=== PATIENT | female | born 1960 | race Caucasian/White ===

== ENCOUNTER 2020-11-07 07:48 | Outpatient (REF) | payer OTHER, SELFPAY ==
[2020-11-07 10:42] LABS: MANUAL DIFF FLAG NO
[2020-11-07 10:45] LABS: Basophils Absolute Auto 0.1 X10*3/uL (0.0-0.2); Basophils Percent Auto 0.6 % (0-2); Eosinophils Absolute Auto 0.3 X10*3/uL (0.0-0.4); Eosinophils Percent Auto 2.7 % (0-4); Hematocrit 38.6 % (37-47); Hemoglobin 12.6 g/dl (12.0-16.0); Imm Gran Abs Auto 0.07 X10*3/uL (0.00-0.03); Imm Gran Pct Auto 0.7 % (0.0-0.4); Lymphocytes Absolute Auto 3.3 X10*3/uL (1.2-4.9); Lymphocytes Percent Auto 31.7 % (20-40); Mean Corpuscular HGB Conc 32.6 g/dl (31.0-35.0); Mean Corpuscular Hemoglobin 29.7 pg (27.0-33.0); Mean Platelet Volume 10.8 fL (9.4-12.3); Monocytes Absolute Auto 0.8 X10*3/uL (0.1-1.2); Monocytes Percent Auto 7.8 % (2-11); Neutrophils Absolute Auto 5.8 X10*3/uL (2.0-8.3); Neutrophils Percent Auto 56.5 % (45-73); Platelet Count 321 X10*3/uL (160-400); Red Blood Count 4.24 X10*6/uL (4.20-5.50); Red Cell Distribution Width 13.7 % (11.0-16.0); White Blood Count 10.3 X10*3/uL (4.8-10.8)
[2020-11-07 12:07] LABS: Alanine Aminotransferase 48 U/L (0-31); Albumin Level 3.8 g/dL (3.5-5.0); Alkaline Phosphatase 107 U/L (39-117); Anion Gap 18 (12-20); Aspartate Amino Transferase 20 U/L (5-31); Bilirubin Total 0.6 mg/dL (0.0-1.0); Blood Urea Nitrogen 23 mg/dL (9-16); Calcium 8.7 mg/dL (8.4-10.2); Carbon Dioxide 24 mmol/L (22-29); Chloride 104 mmol/L (96-108); Cholesterol 245 mg/dL; Estimated Glomerular Filt Rate > 60; Glucose Fasting 101 mg/dL (60-99); HDL Cholesterol 58 mg/dL; LDL Cholesterol Calculated 149 mg/dl; Potassium 5.3 mmol/L (3.3-5.1); Sodium 141 mmol/L (135-145); Total Protein 6.5 g/dL (6.5-8.0); Triglycerides 192 mg/dL
== END 2020-11-07 07:49 | disposition home or self-care (01) ==
LOC: HO.WFDLDS 07:48
PROVIDERS: Visit Provider Internal Medicine
DX: Z00.00 Encounter for general adult medical examination without abnormal findings (principal); E11.9 Type 2 diabetes mellitus without complications; E03.9 Hypothyroidism, unspecified
CPT/HCPCS: 36415; 80053; 80061; 84443; 85025

== ENCOUNTER 2021-09-13 11:09 | Outpatient (REF) | payer OTHER, SELFPAY | END 2021-09-13 11:10 | disposition home or self-care (01) | LOC: HO.LNP 11:09 | PROVIDERS: Visit Provider Internal Medicine | DX: N39.0 Urinary tract infection, site not specified (principal) | CPT/HCPCS: 87086 ==

== ENCOUNTER 2022-06-27 11:22 | Outpatient (REF) | payer OTHER, SELFPAY ==
--- NOTE | ~2022-06-27 | US_ITS ---
EXAMINATION: US THYROID CLINICAL INFORMATION: Nontoxic goiter, unspecified. COMPARISON: Thyroid ultrasound 09/02/2019. TECHNIQUE: Linear transducer grayscale and color Doppler examination with attention to the region of the thyroid. FINDINGS: SIZE: Measurements of the thyroid lobes and nodules are given in sagittal, anteroposterior and transverse dimensions respectively. Right Thyroid Lobe: 4.3 x 1.6 x 1.3 cm, volume 4.9 mL. Previously 4.5 x 1.5 x 1.1 cm, volume 3.9 mL. Parenchyma: The gland echotexture is homogeneous. Thyroid vascularity is normal. Left Thyroid Lobe: 4.1 x 1.6 x 1.3 cm, volume 4.6 mL. Previously 4.1 x 1.8 x 1.3 cm, volume 5.0 mL. Parenchyma: The gland echotexture is homogeneous. Thyroid vascularity is normal. Isthmus: 0.1 cm in maximum AP dimension. Previously 0.1 cm. Estimated total number of nodules greater than or equal to 1 cm: 1. 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 Location: Right lower pole. Size: 0.4 x 0.3 x 0.3 cm, volume 0.02 mL. Previously: Not documented. Nodule characteristics: Composition: Cystic(0). ACR TI-RADS total points: 0 ACR TI-RADS category: 1 2. Location: Right lower pole. Size: 0.5 x 0.3 x 0.4 cm, volume 0.03 mL. Previously: 0.4 x 0.3 x 0.4 cm, volume 0.03 mL. Nodule characteristics: Composition: Cystic(0). ACR TI-RADS total points: 0 ACR TI-RADS category: 1 Significant change in size (>/= 20% in 2 dimensions and minimal increase of 2 mm or 50% or greater increase in volume): Change in features: Change in ACR TI-RADS risk category: 3. Location: Left mid pole. Size: 1.3 x 1.0 x 1.2 cm, volume 0.80 mL. Previously: 1.4 x 0.8 x 1.0 cm, volume 0.59 mL. Nodule characteristics: Composition: Solid/almost completely solid (2). Echogenicity: Very hypoechoic (3). Shape: Not taller than wide (0). Margins: Smooth (0). Echogenic Foci: Punctate echogenic foci (3). ACR TI-RADS total points: 8 ACR TI-RADS category: 5 Significant change in size (>/= 20% in 2 dimensions and minimal increase of 2 mm or 50% or greater increase in volume): Change in features: Change in ACR TI-RADS risk category: NODES: No lymphadenopathy is seen in the tissue surrounding the thyroid gland. US/US thyroid IMPRESSION: Slight interval increase in size in the dominant nodule in the mid left lobe. Fine needle aspiration recommended. ACR TI-RADS RECOMMENDATION REFERENCE: Ultrasound-guided fine-needle aspiration, followup ultrasound, no further follow up. * TR1 (0 point) and TR 2 (2 points): No FNA or follow up * TR3 (3 points): FNA if more than or equal to 2.5 cm in maximum dimension, followup ultrasound in 1, 3 and 5 years if 1.5 to 2.4 cm in maximum dimension. * TR4 (4-6 points): FNA if more than or equal to 1.5 cm in maximum dimension, followup ultrasound in 1, 2, 3 and 5 years if 1 to 1.4 cm in maximum dimension. * TR5 (more than or equal to 7 points): FNA if more than or equal to 1 cm in maximum dimension, followup ultrasound every year for 5 years if 0.5 to 0.9 cm in maximum dimension. * TR3, TR4 or TR5 nodules that are below the size threshold for follow up receive no follow up.
== END 2022-06-27 11:23 | disposition home or self-care (01) ==
LOC: HO.HMGCX 11:22
PROVIDERS: PCP Internal Medicine; Visit Provider Internal Medicine
DX: E04.9 Nontoxic goiter, unspecified (principal)
CPT/HCPCS: 76536

== ENCOUNTER 2022-07-01 08:17 | Outpatient (REF) | payer OTHER, SELFPAY ==
[2022-07-01 11:28] LABS: MANUAL DIFF FLAG NO
[2022-07-01 11:55] LABS: Basophils Percent Auto 0.1 % (0-2); Hematocrit 39.1 % (37.0-47.0); Hemoglobin 12.6 g/dl (12.0-16.0); Imm Gran Abs Auto 0.05 X10*3/uL (0.00-0.03); Imm Gran Pct Auto 0.6 % (0.0-0.4); Lymphocytes Absolute Auto 2.7 X10*3/uL (1.2-4.9); Lymphocytes Percent Auto 31.1 % (20-40); Mean Corpuscular HGB Conc 32.2 g/dl (31.0-35.0); Mean Corpuscular Hemoglobin 28.7 pg (27.0-33.0); Mean Corpuscular Volume 89.1 fL (80.0-98.0); Mean Platelet Volume 11.2 fL (9.4-12.3); Monocytes Absolute Auto 0.6 X10*3/uL (0.1-1.2); Monocytes Percent Auto 6.9 % (2-11); Neutrophils Absolute Auto 5.3 x10*3/uL (2.0-8.3); Neutrophils Percent Auto 61.3 % (45-73); Platelet Count 274 X10*3/uL (160-400); Red Blood Count 4.39 X10*6/uL (4.20-5.50); Red Cell Distribution Width 13.7 % (11.0-16.0); White Blood Count 8.7 X10*3/uL (4.8-10.8)
[2022-07-01 12:25] LABS: Alanine Aminotransferase 39 U/L (0-31); Albumin Level 3.8 g/dL (3.5-5.0); Alkaline Phosphatase 84 U/L (39-117); Anion Gap 14 (12-20); Aspartate Amino Transferase 18 U/L (5-31); Bilirubin Total 0.7 mg/dL (0.0-1.0); Blood Urea Nitrogen 20 mg/dL (9-16); Calcium 8.7 mg/dL (8.4-10.2); Carbon Dioxide 25 mmol/L (22-29); Chloride 104 mmol/L (96-108); Cholesterol 262 mg/dL; Estimated Glomerular Filt Rate > 60; Glucose Fasting 110 mg/dL (60-99); HDL Cholesterol 67 mg/dL; LDL Cholesterol Calculated 167 mg/dl; Potassium 4.2 mmol/L (3.3-5.1); Sodium 139 mmol/L (135-145); Thyroid Stimulating Hormone 0.73 uIU/mL (0.32-4.0); Total Protein 6.4 g/dL (6.5-8.0); Triglycerides 141 mg/dL
== END 2022-07-01 08:18 | disposition home or self-care (01) ==
LOC: HO.WFDLDS 08:17
PROVIDERS: Visit Provider Internal Medicine
DX: Z00.00 Encounter for general adult medical examination without abnormal findings (principal); Z13.0 Encounter for screening for diseases of the blood and blood-forming organs and certain disorders involving the immune mechanism
CPT/HCPCS: 36415; 80053; 80061; 84443; 85025

== ENCOUNTER 2022-09-19 08:42 | Outpatient (REF) | payer OTHER, SELFPAY ==
--- NOTE | 2022-09-19 09:19 | P.BOP_ITS ---
Brief Operative Note Date of Service: 09/19/22 Pre-op diagnosis: Thyroid Nodule Procedure: This is doctor Ashleigh Weston. This is an ultrasound-guided fine-needle aspiration report. Date of Examination: Indication: Multinodular Thyroid Porcedure: Procedure was explained to the patient. Alternatives, the risk and benefits were discussed. Written consent was obtained. A time-out was also obtained. After sterile preparation, fine-needle aspiration of a left mid pole 1.3 cm thyroid nodule was performed using direct ultrasound guidance to confirm accurate needle placement. Four aspirations were made using 27 gauge needles. Samples were submitted for cytology. 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 The patient tolerated the procedure well. Aftercare instructions were provided. Impression: Uncomplicated fine needle aspiration biopsy of a left mid pole 1.3 cm thyroid nodule under ultrasound guidance. Surgeon: Ashleigh Weston, DO Was an Mine Production Engineer used for this Procedure?: No Estimated blood loss (mL): 0
== END 2022-09-19 08:43 | disposition home or self-care (01) ==
LOC: HO.US 08:42
PROVIDERS: Visit Provider Internal Medicine
DX: E04.1 Nontoxic single thyroid nodule (principal)
CPT/HCPCS: 10005; 88172; 88173; 88177; 88305

== ENCOUNTER 2022-12-17 11:50 | Outpatient (REF) | payer OTHER, SELFPAY ==
--- NOTE | ~2022-12-17 | XR_ITS ---
EXAMINATION: XR LUMBOSACRAL SPINE CLINICAL INFORMATION: Reason for Exam M54.9 - Dorsalgia, unspecified COMPARISON: Lumbar spine radiographs 03/06/2015 TECHNIQUE: 3 views of the lumbar spine FINDINGS: 5 nonrib-bearing lumbar-type vertebral bodies. Vertebral body heights are maintained. Dextroconvex curvature of the lumbar spine. Grade 1 retrolisthesis of L2 on L3 and L3 on L4. Moderate multilevel degenerative disc disease with loss of disc space height and facet arthropathy, progressed from prior. Paravertebral soft tissues are unremarkable. XR/XR lumbar spine 2-3V IMPRESSION: * Moderate spondylosis of the lumbar spine, as above detailed, progressed from prior. * Spondylolisthesis, as above detailed, with dextroconvex curvature of the lumbar spine.
[2022-12-17 12:07] LABS: MANUAL DIFF FLAG NO
[2022-12-17 13:22] LABS: Basophils Percent Auto 0.2 % (0-2); Hematocrit 38.4 % (37.0-47.0); Hemoglobin 12.6 g/dl (12.0-16.0); Imm Gran Abs Auto 0.02 X10*3/uL (0.00-0.03); Imm Gran Pct Auto 0.2 % (0.0-0.4); Lymphocytes Absolute Auto 2.1 X10*3/uL (1.2-4.9); Lymphocytes Percent Auto 23.4 % (20-40); Mean Corpuscular HGB Conc 32.8 g/dl (31.0-35.0); Mean Corpuscular Hemoglobin 28.9 pg (27.0-33.0); Mean Corpuscular Volume 88.1 fL (80.0-98.0); Mean Platelet Volume 11.1 fL (9.4-12.3); Monocytes Absolute Auto 0.5 X10*3/uL (0.1-1.2); Monocytes Percent Auto 5.9 % (2-11); Neutrophils Absolute Auto 6.2 x10*3/uL (2.0-8.3); Neutrophils Percent Auto 70.3 % (45-73); Platelet Count 305 X10*3/uL (160-400); Red Blood Count 4.36 X10*6/uL (4.20-5.50); Red Cell Distribution Width 13.2 % (11.0-16.0); White Blood Count 8.8 X10*3/uL (4.8-10.8)
[2022-12-17 14:27] LABS: Anion Gap 14 (12-20); Blood Urea Nitrogen 19 mg/dL (9-16); Calcium 9.2 mg/dL (8.4-10.2); Carbon Dioxide 26 mmol/L (22-29); Chloride 105 mmol/L (96-108); Cholesterol 213 mg/dL; Estimated Glomerular Filt Rate > 60; Glucose Random 101 mg/dL (60-115); HDL Cholesterol 56 mg/dL; LDL Cholesterol Calculated 125 mg/dl; Potassium 4.7 mmol/L (3.3-5.1); Sodium 140 mmol/L (135-145); Triglycerides 160 mg/dL
== END 2022-12-17 11:51 | disposition home or self-care (01) ==
LOC: HO.LAB 11:50
PROVIDERS: PCP Internal Medicine; Visit Provider Internal Medicine
DX: D64.9 Anemia, unspecified (principal); N39.0 Urinary tract infection, site not specified; M54.9 Dorsalgia, unspecified; E78.5 Hyperlipidemia, unspecified
CPT/HCPCS: 36415; 72100; 80048; 80061; 85025; 87086

== ENCOUNTER 2022-12-30 13:02 | Outpatient (REF) | payer OTHER, SELFPAY ==
[2022-12-30 15:08] LABS: Appearance Urine Hazy; Color Urine Orange; Glucose Urine UA 100 mg/dL (Negative); Leukocyte Esterase Urine Trace (Negative); Nitrite Urine Positive (Negative); PH 5.5 (5.0-9.0); Specific Gravity - Urine 1.025 (1.005-1.025); UMIC TRIGGER UACC YES; Urine Blood Negative (Negative); Urine Ketones Trace mg/dL (Negative); Urine Protein 100 (2+) mg/dL (Neg-Trace)
[2022-12-30 15:25] LABS: Bacteria Urine Trace (None Seen); UACC Culture Trigger YES; WBC Urine 21-50 /HPF (0-5)
== END 2022-12-30 13:03 | disposition home or self-care (01) ==
LOC: HO.LAB 13:02
PROVIDERS: PCP Internal Medicine; Visit Provider Internal Medicine
DX: R39.9 Unspecified symptoms and signs involving the genitourinary system (principal)
CPT/HCPCS: 81001; 81003; 87086; 87088; 87186

== ENCOUNTER → 2023-02-03 13:51 | Outpatient (BNVA) | payer OTHER, SELFPAY | PROVIDERS: PCP Internal Medicine; Visit Provider Internal Medicine ==

== ENCOUNTER 2023-06-10 13:23 | Outpatient (AMB) | payer OTHER, SELFPAY ==
[2023-06-10 13:25] VITALS: BP 132/88; PULSE 90; O2SAT 98; BMI 32.9
--- NOTE | 2023-06-10 13:25 | A.OFFPC_ITS ---
Vital Signs 06/10/23 13:25 Height 5 ft 2 in Weight 180 lb BMI 32.9 BP 132/88 Blood Pressure Location Lt brachial Position Sitting Pulse 90 Pulse Source Pulse Oximeter Pulse Oximetry (%) 98 Oxygen Delivery Method Room Air Intake Visit Reasons: Vertigo Recruitment Coordinator: Not Required per policy Accompanied by: Self / Same As Patient Allergies albuterol [ALBUTEROL] Allergy (Unknown, Verified 06/10/23 13:25) ANAPHYLAXIS azithromycin [AZITHROMYCIN] Allergy (Unknown, Verified 06/10/23 13:25) ANGIOEDEMA, tingling tongue/throat bee venom protein (honey bee) Allergy (Unknown, Verified 06/10/23 13:25) Anaphylaxis guaifenesin [GUAIFENESIN] Allergy (Unknown, Verified 06/10/23 13:25) ANAPHYLACTIC, anaphylaxis iodine [IODINE] Allergy (Unknown, Verified 06/10/23 13:25) ANAPHYLAXIS, Slight throat swelling levofloxacin [Levaquin] Allergy (Unknown, Verified 06/10/23 13:25) rash tingling peanut [PEANUT] Allergy (Unknown, Verified 06/10/23 13:25) HIVES shellfish derived Allergy (Unknown, Verified 06/10/23 13:25) slight throat swelling Sulfa (Sulfonamide Antibiotics) [SULFA (SULFONAMIDE ANTIBIOTICS)] Allergy (Unknown, Verified 06/10/23 13:25) RASH atorvastatin Adverse Reaction (Intermediate, Verified 06/10/23 13:25) Sneezing Monistat Cream Allergy (Unknown, Uncoded 06/10/23 13:25) Rash Medication List - Last Reconciled 06/11/23 by Lion Teran MD dupilumab (Dupixent) mg subcut estradiol 1 mg PO DAILY fluticasone furoate-vilanterol 100-25 mcg/dose inhalation ipratropium bromide 17 mcg/actuation (Atrovent HFA) 0 mcg inhalation meclizine 25 mg PO QID PRN medroxyprogesterone 2.5 mg PO DAILY nitrofurantoin macrocrystal 100 mg PO Q12H 7 days rosuvastatin 5 mg PO DAILY tiotropium bromide 1.25 mcg/actuation 2 puffs PO DAILY zolpidem 5 mg PO BEDTIME PRN Tobacco use date assessed: 12/17/22 Dental Screening Dental Screen Date: 06/10/23 Did you have a dental visit in the last 12 months?: Yes Did you have a dental problem in the last 6 months where you did not have access to dental care?: No Was dental information given to patient?: Patient has dentist HPI Vertigo HPI Details recurrent vertigo now for a week [facility] Medical History Multinodular thyroid Asthma Surgical History History of surgery on right wrist History of ankle surgery History of ear surgery Family History Father Myocardial infarction Diabetes Mother High cholesterol Diabetes Hypertension Breast cancer DDD (degenerative disc disease) Maternal Grandfather Mary's disease Thyroid disease Sister Overactive thyroid gland Maternal Aunt Thyroid disease Social History Housing: House Alcohol intake: current Alcohol intake frequency: holidays/special occasions only Patient Tobacco Use Status: Never used Tobacco e-Cigarette/Vaping Use: Never Used Second Hand Smoke Exposure: No service: No Current occupational status: unemployed Cognitive needs: No Hearing needs: No Vision needs: No Questionnaire PHQ-9 Over the last 2 weeks, how often have you been bothered by any of the following problems? 1. Little interest or pleasure in doing things: not at all 2. Feeling down, depressed, or hopeless: not at all 3. Trouble falling or staying asleep, or sleeping too much: not at all 4. Feeling tired or having little energy: not at all 5. Poor appetite or overeating: not at all 6. Feeling bad about yourself - or that you are a failure or have let yourself or your family down: not at all 7. Trouble concentrating on things, such as reading the newspaper or watching television: not at all 8. Moving or speaking so slowly that other people could have noticed. Or the opposite - being so fidgety or restless that you have been moving around a lot more than usual: not at all 9. Thoughts that you would be better off or of hurting yourself in some way: not at all Total score: 0 Depression Screening Interpretation: Negative Depression Screening Done: Yes 46998 - PHQ-9 Billing: Yes Source: Developed by Drs. Diego Brown, Shaniqua Leonard, Alfonso Downey and colleagues, with an educational dagmar from [employer] Thrive Questionnaire Date Thrive assessed: 09/09/22 AUDIT C Alcohol Use Questionnaire (AUDIT-C) 1. How often do you have a drink containing alcohol?: 2-4 times a month 2. How many drinks containing alcohol do you have on a typical day when you are drinking?: 1 or 2 3. How often do you have six or more drinks on one occasion?: Never Total Score: 2 Score Reviewed/Action Taken: Yes CLARISSA-7 AMB Questionnaire CLARISSA-7 Date CLARISSA - 7 assessed: 09/09/22 Source: Developed by Drs. Diego Brown, Shaniqua Leonard, Alfonso Downey and colleagues, with an educational dagmar from [employer]. Review of Systems Const Denies chills, Denies headache(s) and Denies weight loss ENT Denies headache(s) Card Denies chest pain, Denies syncope, Denies irregular heart rhythm and Denies dyspnea Resp Denies chest congestion, Denies cough and Denies dyspnea GI Denies abdominal pain, Denies change in stool character, Denies nausea and Denies vomiting Musc Denies deformity and Denies joint swelling Neuro Denies syncope and Denies headache(s) Physical exam (Primary Care) Vital Signs: Last Vital Signs Pulse 90 06/10/23 13:25 BP 132/88 06/10/23 13:25 Pulse Ox 98 06/10/23 13:25 Oxygen Delivery Method Room Air 06/10/23 13:25 BMI result Body Mass Index 32.9 Tobacco/Smoking Status: Tobacco use Status Tobacco use date assessed 12/17/22 06/10/23 13:26 Patient Tobacco Use Status Never used Tobacco 06/10/23 13:26 e-Cigarette/Vaping Use Never Used 06/10/23 13:26 PHQ-9: PHQ-9 Score PHQ-9: Total score 0 06/10/23 13:26 Depression Screening Interpretation: Negative Thrive Assessment: Date of Thrive Assessment Date Thrive assessed 09/09/22 06/10/23 13:26 Const General: cooperative, comfortable, no acute distress and alert Neck Neck: Yes no lymphadenopathy Thyroid: Thyroid normal Resp Effort & Inspection: normal respiratory effort Auscultation: clear to auscultation bilaterally Percussion: percussion normal Cardio Jugular venous distension: no JVD Palpation: normal PMI Rate: regular rate Rhythm: regular rhythm Heart sounds: S1 normal heart sound present and S2 normal heart sound present GI Inspection: Yes normal to inspection Palpation (GI): No hepatosplenomegaly present Skin General skin exam: no rashes or lesions noted Neuro Other: no nystagmus Extrem General: Yes no clubbing, cyanosis or edema Assessment and Plan Assessment & Plan (1) Vertigo: Code(s): R42 - Dizziness and giddiness Plan: rx sent Medications: New meclizine 25 mg PO QID PRN 30 tabs 2RF dizziness Coding Level of Care Code Est Pt Level 3 (41447) Diagnoses Vertigo R42
== END 2023-06-10 13:44 | disposition home or self-care (01) ==
PROVIDERS: PCP Internal Medicine; Visit Provider Internal Medicine
DX: R42 Dizziness and giddiness (principal)
CPT/HCPCS: 99213

== ENCOUNTER 2023-07-16 08:45 | Outpatient (AMB) | payer OTHER, SELFPAY ==
[2023-07-16 08:47] VITALS: BP 136/88; PULSE 85; O2SAT 97; BMI 33.3
--- NOTE | 2023-07-16 08:47 | MHC.PC.OV ---
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 Accompanied by: Self / Same As Patient Allergies albuterol [ALBUTEROL] Allergy (Unknown, Verified 07/16/23 08:48) ANAPHYLAXIS azithromycin [AZITHROMYCIN] Allergy (Unknown, Verified 07/16/23 08:48) ANGIOEDEMA, tingling tongue/throat bee venom protein (honey bee) Allergy (Unknown, Verified 07/16/23 08:48) Anaphylaxis guaifenesin [GUAIFENESIN] Allergy (Unknown, Verified 07/16/23 08:48) ANAPHYLACTIC, anaphylaxis iodine [IODINE] Allergy (Unknown, Verified 07/16/23 08:48) ANAPHYLAXIS, Slight throat swelling levofloxacin [Levaquin] Allergy (Unknown, Verified 07/16/23 08:48) rash tingling peanut [PEANUT] Allergy (Unknown, Verified 07/16/23 08:48) HIVES shellfish derived Allergy (Unknown, Verified 07/16/23 08:48) slight throat swelling Sulfa (Sulfonamide Antibiotics) [SULFA (SULFONAMIDE ANTIBIOTICS)] Allergy (Unknown, Verified 07/16/23 08:48) RASH atorvastatin Adverse Reaction (Intermediate, Verified 07/16/23 08:48) Sneezing Monistat Cream Allergy (Unknown, Uncoded 07/16/23 08:48) Rash Tobacco use date assessed: 12/17/22 HPI Headache, Nausea, Dizziness HPI Details continues with h/a blurred vision and vertigo PFSH Medical History Multinodular thyroid Asthma Surgical History History of surgery on right wrist History of ankle surgery History of ear surgery Family History Father Myocardial infarction Diabetes Mother High cholesterol Diabetes Hypertension Breast cancer DDD (degenerative disc disease) Maternal Grandfather Mary's disease Thyroid disease Sister Overactive thyroid gland Maternal Aunt Thyroid disease Social History Housing: House Alcohol intake: current Alcohol intake frequency: holidays/special occasions only Patient Tobacco Use Status: Never used Tobacco e-Cigarette/Vaping Use: Never Used Second Hand Smoke Exposure: No service: No Current occupational status: unemployed Cognitive needs: No Hearing needs: No Vision needs: No Questionnaire Thrive Questionnaire Date Thrive assessed: 09/09/22 CLARISSA-7 AMB Questionnaire CLARISSA-7 Date CLARISSA - 7 assessed: 09/09/22 Source: Developed by Drs. Diego Brown, Shaniqua Leonard, Alfonso Downey and colleagues, with an educational dagmar from [employer]. Review of Systems Const Denies chills, Denies headache(s) and Denies weight loss ENT Denies headache(s) Card Denies chest pain, Denies syncope, Denies irregular heart rhythm and Denies dyspnea Resp Denies chest congestion, Denies cough and Denies dyspnea GI Denies abdominal pain, Denies change in stool character, Denies nausea and Denies vomiting Musc Denies deformity and Denies joint swelling Neuro Denies syncope and Denies headache(s) Physical exam (Primary Care) Vital Signs: Last Vital Signs Pulse 85 07/16/23 08:47 BP 136/88 07/16/23 08:47 Pulse Ox 97 07/16/23 08:47 Oxygen Delivery Method Room Air 07/16/23 08:47 BMI result Body Mass Index 33.3 Tobacco/Smoking Status: Tobacco use Status Tobacco use date assessed 12/17/22 07/16/23 08:48 Patient Tobacco Use Status Never used Tobacco 07/16/23 08:48 e-Cigarette/Vaping Use Never Used 07/16/23 08:48 Thrive Assessment: Date of Thrive Assessment Date Thrive assessed 09/09/22 07/16/23 08:48 Const General: cooperative, comfortable, no acute distress and alert Neck Neck: Yes no lymphadenopathy Thyroid: Thyroid normal Resp Effort & Inspection: normal respiratory effort Auscultation: clear to auscultation bilaterally Percussion: percussion normal Cardio Jugular venous distension: no JVD Palpation: normal PMI Rate: regular rate Rhythm: regular rhythm Heart sounds: S1 normal heart sound present and S2 normal heart sound present GI Inspection: Yes normal to inspection Palpation (GI): No hepatosplenomegaly present Skin General skin exam: no rashes or lesions noted Extrem General: Yes no clubbing, cyanosis or edema Assessment and Plan Assessment & Plan (1) Vertigo: Code(s): R42 - Dizziness and giddiness Plan: ct and referral Orders: Orders CT head/brain wo IV con Today R42 - Dizziness and giddiness Coding Level of Care Code Est Pt Level 3 (17314) Diagnoses Vertigo R42
== END 2023-07-16 08:59 | disposition home or self-care (01) ==
PROVIDERS: PCP Internal Medicine; Visit Provider Internal Medicine
DX: R42 Dizziness and giddiness (principal)
CPT/HCPCS: 99213

== ENCOUNTER 2023-08-06 07:36 | Outpatient (REF) | payer OTHER, SELFPAY | END 2023-08-06 07:37 | disposition home or self-care (01) | LOC: HO.CT 07:36 | PROVIDERS: PCP Internal Medicine; Visit Provider Internal Medicine | DX: R42 Dizziness and giddiness (principal) | CPT/HCPCS: 70450 ==

== ENCOUNTER 2023-09-12 09:56 | Outpatient (AMB) | payer OTHER, SELFPAY ==
[2023-09-12 09:56] VITALS: BP 132/90; RESP 86; O2SAT 99; BMI 32.4
--- NOTE | 2023-09-12 09:56 | MHC.PC.OV ---
Vital Signs 09/12/23 09:56 Height 5 ft 2 in Weight 177 lb 0.2 oz BMI 32.4 BP 132/90 H Blood Pressure Location Lt brachial Position Sitting Respiration 86 H Pulse Source Pulse Oximeter Pulse Oximetry (%) 99 Oxygen Delivery Method Room Air Intake Visit Reasons: Annual exam Intake Note: Patient is here today for a physical. 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 Accompanied by: Self / Same As Patient Allergies albuterol [ALBUTEROL] Allergy (Unknown, Verified 09/12/23 09:57) ANAPHYLAXIS azithromycin [AZITHROMYCIN] Allergy (Unknown, Verified 09/12/23 09:57) ANGIOEDEMA, tingling tongue/throat bee venom protein (honey bee) Allergy (Unknown, Verified 09/12/23 09:57) Anaphylaxis guaifenesin [GUAIFENESIN] Allergy (Unknown, Verified 09/12/23 09:57) ANAPHYLACTIC, anaphylaxis iodine [IODINE] Allergy (Unknown, Verified 09/12/23 09:57) ANAPHYLAXIS, Slight throat swelling levofloxacin [Levaquin] Allergy (Unknown, Verified 09/12/23 09:57) rash tingling peanut [PEANUT] Allergy (Unknown, Verified 09/12/23 09:57) HIVES shellfish derived Allergy (Unknown, Verified 09/12/23 09:57) slight throat swelling Sulfa (Sulfonamide Antibiotics) [SULFA (SULFONAMIDE ANTIBIOTICS)] Allergy (Unknown, Verified 09/12/23 09:57) RASH atorvastatin Adverse Reaction (Intermediate, Verified 09/12/23 09:57) Sneezing Monistat Cream Allergy (Unknown, Uncoded 09/12/23 09:57) Rash Medication List - Last Reconciled 09/12/23 by Lion Teran MD dupilumab (Dupixent) mg subcut estradiol 1 mg PO DAILY fluticasone furoate-vilanterol 100-25 mcg/dose inhalation ipratropium bromide 17 mcg/actuation (Atrovent HFA) 0 mcg inhalation meclizine 25 mg PO QID PRN medroxyprogesterone 2.5 mg PO DAILY methylprednisolone (Medrol (Víctor)) PO PER PKG DIR rosuvastatin 5 mg PO DAILY tiotropium bromide 1.25 mcg/actuation 2 puffs PO DAILY zolpidem 5 mg PO BEDTIME PRN Tobacco use date assessed: 09/12/23 Dental Screening Dental Screen Date: 09/12/23 Did you have a dental visit in the last 12 months?: Yes Did you have a dental problem in the last 6 months where you did not have access to dental care?: No Was dental information given to patient?: Patient has dentist HPI Annual exam HPI Details asthma and hyperlip on rx [facility] Medical History Multinodular thyroid Asthma Surgical History History of surgery on right wrist History of ankle surgery History of ear surgery Family History Father Myocardial infarction Diabetes Mother High cholesterol Diabetes Hypertension Breast cancer DDD (degenerative disc disease) Maternal Grandfather Mary's disease Thyroid disease Sister Overactive thyroid gland Maternal Aunt Thyroid disease Social History Housing: House Alcohol intake: current Alcohol intake frequency: holidays/special occasions only Patient Tobacco Use Status: Never used Tobacco e-Cigarette/Vaping Use: Never Used Second Hand Smoke Exposure: No service: No Current occupational status: unemployed Cognitive needs: No Hearing needs: No Vision needs: No Questionnaire PHQ-9 Over the last 2 weeks, how often have you been bothered by any of the following problems? 1. Little interest or pleasure in doing things: not at all 2. Feeling down, depressed, or hopeless: not at all 3. Trouble falling or staying asleep, or sleeping too much: not at all 4. Feeling tired or having little energy: not at all 5. Poor appetite or overeating: not at all 6. Feeling bad about yourself - or that you are a failure or have let yourself or your family down: not at all 7. Trouble concentrating on things, such as reading the newspaper or watching television: not at all 8. Moving or speaking so slowly that other people could have noticed. Or the opposite - being so fidgety or restless that you have been moving around a lot more than usual: not at all 9. Thoughts that you would be better off or of hurting yourself in some way: not at all Total score: 0 Depression Screening Interpretation: Negative Depression Screening Done: Yes 12545 - PHQ-9 Billing: Yes Source: Developed by Drs. Diego Brown, Shaniqua Leonard, Alfonso Downey and colleagues, with an educational dagmar from [employer]. Thrive Questionnaire Date Thrive assessed: 09/12/23 I am a: Patient What is your living situation today?: I have a steady place to live Within the past 12 months, did the food you bought not last and you didn't have the money to get more?: Never true Within the past 12 months, did you worry whether your food would run out before you got money to buy more?: Never true Do you have trouble paying for medicines?: No Do you have trouble getting transportation to medical appointments?: No Do you have trouble paying your heating and electricity bill?: No Do you have trouble taking care of your child, family member or friend?: No Do you have trouble with day-to-day activities such as bathing, preparing meals, shopping, managing finances, etc.?: No Are you currently unemployed and looking for a job?: No Are you interested in more education?: No Please select the resources that you would like help with: None THRIVE Score: 0 AUDIT C Alcohol Use Questionnaire (AUDIT-C) 1. How often do you have a drink containing alcohol?: 2-4 times a month 2. How many drinks containing alcohol do you have on a typical day when you are drinking?: 1 or 2 3. How often do you have six or more drinks on one occasion?: Never Total Score: 2 Score Reviewed/Action Taken: Yes CLARISSA-7 AMB Questionnaire CLARISSA-7 Date CLARISSA - 7 assessed: 09/12/23 Feeling nervous, anxious, or on edge: 0 = Not at all Not being able to stop or control worryin = Not at all Worrying too much about different things: 0 = Not at all Trouble relaxin = Not at all Being so restless that it is hard to sit still: 0 = Not at all Becoming easily annoyed or irritable: 0 = Not at all Feeling afraid as if something awful might happen: 0 = Not at all Total CLARISSA-7 score (0-4 normal; 5-9 mild; 10-14 moderate; 15-21 severe): 0 Source: Developed by Drs. Diego Brown, Shaniqua Leonard, Alfonso Downey and colleagues, with an educational dagmar from [employer]. CLARISSA-7 Assessment Billing CLARISSA-7 Assessment Tool: CLARISSA-7 Assessment 73911 Review of Systems Const Denies chills, Denies fatigue, Denies headache(s) and Denies weight loss Eyes Denies change in vision, Denies diplopia and Denies eye pain ENT Denies vertigo, Denies dizziness, Denies headache(s) and Denies nasal discharge Card Denies chest pain, Denies rapid heart rate and Denies dyspnea on exertion Resp Denies chest congestion, Denies cough, Denies pain with cough and Denies dyspnea on exertion GI Denies abdominal pain, Denies hematochezia and Denies change in bowel habits Musc Denies myalgias, Denies arthralgias and Denies joint swelling Skin/Breast Denies lesions and Denies unusual bruising Neuro Denies vertigo, Denies dizziness, Denies headache(s) and Denies focal weakness Endo Denies fatigue Physical exam (Primary Care) Vital Signs: Last Vital Signs Resp 86 H 09/12/23 09:56 BP 132/90 H 09/12/23 09:56 Pulse Ox 99 09/12/23 09:56 Oxygen Delivery Method Room Air 09/12/23 09:56 BMI result Body Mass Index 32.4 Tobacco/Smoking Status: Tobacco use Status Tobacco use date assessed 09/12/23 09/12/23 09:58 Patient Tobacco Use Status Never used Tobacco 09/12/23 09:58 e-Cigarette/Vaping Use Never Used 09/12/23 09:58 PHQ-9: PHQ-9 Score PHQ-9: Total score 0 09/12/23 10:03 Depression Screening Interpretation: Negative Thrive Assessment: Date of Thrive Assessment Date Thrive assessed 09/12/23 09/12/23 09:58 Const General: cooperative, healthy appearing and no acute distress Orientation/consciousness: oriented to person, oriented to place and oriented to time HENMT Head: Yes normal to inspection, Yes normocephalic and Yes atraumatic Mouth: Normal oral and palatal mucosa present and tongue normal Throat: Yes posterior oropharynx normal and Yes uvula midline Eyes General: appearance normal, both eyes and all related structures Neck Neck: Yes normal visual inspection, Yes full ROM and Yes no lymphadenopathy Thyroid: Thyroid normal Carotids: normal carotid upstroke Chest Chest palpation & inspection: normal inspection of the chest Resp Effort & Inspection: normal respiratory effort and able to speak in complete sentences Auscultation: clear to auscultation bilaterally Cardio Jugular venous distension: no JVD Palpation: normal PMI Rate: regular rate Rhythm: regular rhythm Heart sounds: S1 normal heart sound present and S2 normal heart sound present GI Inspection: Yes normal to inspection Palpation (GI): Soft to palpation and No hepatosplenomegaly present Auscultation: normal bowel sounds General: Yes no CVA tenderness Back/Spine/Pelvis Back: no CVA tenderness Skin General skin exam: no rashes or lesions noted Neuro General: oriented to person, oriented to place and oriented to time Extrem General: Yes normal to inspection and Yes full ROM Assessment and Plan Assessment & Plan (1) Physical exam: Code(s): Z00.00 - Encounter for general adult medical examination without abnormal findings Plan: do labs (2) Asthma: Code(s): J45.909 - Unspecified asthma, uncomplicated Plan: as per pulmonary (3) Hyperlipidemia: Code(s): E78.5 - Hyperlipidemia, unspecified Plan: stable Orders: Orders Lipid Panel Today E78.5 - Hyperlipidemia, unspecified Complete Blood Count Auto Diff Today D64.9 - Anemia, unspecified Comprehensive Concepcion. Panel Fast Today N28.9 - Disorder of kidney and ureter, unspecified Thyroid Stimulating Hormone Today E03.9 - Hypothyroidism, unspecified Coding Level of Care Code New Pt Prev Care 40-64y(36310) Diagnoses Physical exam Z00.00 Asthma J45.909 Hyperlipidemia E78.5 Additional Codes CLARISSA-7 Assessment Billing - CLARISSA-7 Assessment Tool: CLARISSA-7 Assessment 51316 ([id number])
== END 2023-09-12 10:13 | disposition home or self-care (01) ==
PROVIDERS: Visit Provider Internal Medicine
DX: Z00.00 Encounter for general adult medical examination without abnormal findings (principal); J45.909 Unspecified asthma, uncomplicated; E78.5 Hyperlipidemia, unspecified
CPT/HCPCS: 99386; 99396

== ENCOUNTER 2024-03-10 09:24 | Outpatient (AMB) | payer OTHER, SELFPAY ==
--- NOTE | 2024-03-10 09:26 | A.OFFPC_ITS ---
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 Accompanied by: Self / Same As Patient Allergies albuterol [ALBUTEROL] Allergy (Unknown, Verified 03/10/24 09:27) ANAPHYLAXIS azithromycin [AZITHROMYCIN] Allergy (Unknown, Verified 03/10/24 09:27) ANGIOEDEMA, tingling tongue/throat bee venom protein (honey bee) Allergy (Unknown, Verified 03/10/24 09:27) Anaphylaxis guaifenesin [GUAIFENESIN] Allergy (Unknown, Verified 03/10/24 09:27) ANAPHYLACTIC, anaphylaxis iodine [IODINE] Allergy (Unknown, Verified 03/10/24 09:27) ANAPHYLAXIS, Slight throat swelling levofloxacin [Levaquin] Allergy (Unknown, Verified 03/10/24 09:27) rash tingling peanut [PEANUT] Allergy (Unknown, Verified 03/10/24 09:27) HIVES shellfish derived Allergy (Unknown, Verified 03/10/24 09:27) slight throat swelling Sulfa (Sulfonamide Antibiotics) [SULFA (SULFONAMIDE ANTIBIOTICS)] Allergy (Unknown, Verified 03/10/24 09:27) RASH atorvastatin Adverse Reaction (Intermediate, Verified 03/10/24 09:27) Sneezing Monistat Cream Allergy (Unknown, Uncoded 03/10/24 09:27) Rash Medication List - Last Reconciled 03/10/24 by Lion Teran MD dupilumab (Dupixent) mg subcut estradiol 1 mg PO DAILY fluticasone furoate-vilanterol 100-25 mcg/dose inhalation ipratropium bromide 17 mcg/actuation (Atrovent HFA) 0 mcg inhalation meclizine 25 mg PO QID PRN medroxyprogesterone 2.5 mg PO DAILY methylprednisolone (Medrol (Víctor)) PO PER PKG DIR rosuvastatin 5 mg PO DAILY tiotropium bromide 1.25 mcg/actuation 2 puffs PO DAILY tramadol 50 mg PO Q8H PRN zolpidem 5 mg PO BEDTIME PRN Tobacco use date assessed: 09/12/23 Dental Screening Dental Screen Date: 09/12/23 HPI Bad Headache HPI Details right retro orbital headache and chills and myalgias for 4 days PFSH Medical History Multinodular thyroid Asthma Surgical History History of surgery on right wrist History of ankle surgery History of ear surgery Family History Father Myocardial infarction Diabetes Mother High cholesterol Diabetes Hypertension Breast cancer DDD (degenerative disc disease) Maternal Grandfather Mary's disease Thyroid disease Sister Overactive thyroid gland Maternal Aunt Thyroid disease Social History Housing: House Alcohol intake: current Alcohol intake frequency: holidays/special occasions only Patient Tobacco Use Status: Never used Tobacco e-Cigarette/Vaping Use: Never Used Second Hand Smoke Exposure: No service: No Current occupational status: unemployed Cognitive needs: No Hearing needs: No Vision needs: No Questionnaire Thrive Questionnaire Date Thrive assessed: 09/12/23 CLARISSA-7 AMB Questionnaire CLARISSA-7 Date CLARISSA - 7 assessed: 09/12/23 Source: Developed by Drs. Diego Brown, Shaniqua Leonard, Alfonso Downey and colleagues, with an educational dagmar from [employer]. Review of Systems Const Denies weight loss Card Denies chest pain, Denies syncope, Denies irregular heart rhythm and Denies dyspnea Resp Denies chest congestion, Denies cough and Denies dyspnea GI Denies abdominal pain, Denies change in stool character, Denies nausea and Denies vomiting Musc Denies deformity and Denies joint swelling Neuro Denies syncope Physical exam (Primary Care) Vital Signs: Last Vital Signs Pulse 85 03/10/24 09:27 BP 140/82 H 03/10/24 09:27 Pulse Ox 96 03/10/24 09:27 Oxygen Delivery Method Room Air 03/10/24 09:27 BMI result Body Mass Index 31.6 Tobacco/Smoking Status: Tobacco use Status Tobacco use date assessed 09/12/23 03/10/24 09:31 Patient Tobacco Use Status Never used Tobacco 03/10/24 09:31 e-Cigarette/Vaping Use Never Used 03/10/24 09:31 Thrive Assessment: Date of Thrive Assessment Date Thrive assessed 09/12/23 03/10/24 09:31 Const General: cooperative, comfortable, no acute distress and alert Neck Neck: Yes no lymphadenopathy Thyroid: Thyroid normal Resp Effort & Inspection: normal respiratory effort Auscultation: clear to auscultation bilaterally Percussion: percussion normal Cardio Jugular venous distension: no JVD Palpation: normal PMI Rate: regular rate Rhythm: regular rhythm Heart sounds: S1 normal heart sound present and S2 normal heart sound present GI Inspection: Yes normal to inspection Palpation (GI): No hepatosplenomegaly present Skin General skin exam: no rashes or lesions noted Extrem General: Yes no clubbing, cyanosis or edema Assessment and Plan Assessment & Plan (1) Viral syndrome: Code(s): B34.9 - Viral infection, unspecified Plan: labs and urgent ct Orders: Orders Ehrlichia Anaplasma Ab Panel Today R50.9 - Fever, unspecified CT head/brain wo IV con Today R51.9 - Headache, unspecified Complete Blood Count Auto Diff Today Z13.0 - Encounter for screening for diseases of the blood and blood-forming organs and certain disorders involving the immune mechanism Lyme IgG/IgM w/reflex to WB Today W57.XXXA - Bitten or stung by nonvenomous insect and other nonvenomous arthropods, initial encounter Babesia IgG/IgM Today R50.9 - Fever, unspecified Medications: New tramadol 50 mg PO Q8H PRN 20 tabs 0RF pain Coding Level of Care Code Est Pt Level 3 (06275) Diagnoses Viral syndrome B34.9
[2024-03-10 09:27] VITALS: BP 140/82; PULSE 85; O2SAT 96; BMI 31.6
== END 2024-03-10 09:46 | disposition home or self-care (01) ==
PROVIDERS: PCP Internal Medicine; Visit Provider Internal Medicine
DX: B34.9 Viral infection, unspecified (principal)
CPT/HCPCS: 99213

== ENCOUNTER 2024-03-10 09:52 | Outpatient (REF) | payer OTHER, SELFPAY ==
[2024-03-10 10:13] LABS: MANUAL DIFF FLAG NO
[2024-03-10 10:51] LABS: Basophils Percent Auto 0.4 % (0-2); Eosinophils Absolute Auto 0.2 X10*3/uL (0.0-0.4); Eosinophils Percent Auto 1.6 % (0-4); Hematocrit 40.9 % (37.0-47.0); Hemoglobin 13.4 g/dl (12.0-16.0); Imm Gran Abs Auto 0.04 X10*3/uL (0.00-0.03); Imm Gran Pct Auto 0.4 % (0.0-0.4); Lymphocytes Absolute Auto 2.2 X10*3/uL (1.2-4.9); Lymphocytes Percent Auto 20.5 % (20-40); Mean Corpuscular HGB Conc 32.8 g/dl (31.0-35.0); Mean Corpuscular Hemoglobin 28.9 pg (27.0-33.0); Mean Corpuscular Volume 88.1 fL (80.0-98.0); Mean Platelet Volume 11.2 fL (9.4-12.3); Monocytes Absolute Auto 0.5 X10*3/uL (0.1-1.2); Monocytes Percent Auto 5.1 % (2-11); Neutrophils Absolute Auto 7.6 x10*3/uL (2.0-8.3); Platelet Count 282 X10*3/uL (160-400); Red Blood Count 4.64 X10*6/uL (4.20-5.50); Red Cell Distribution Width 13.2 % (11.0-16.0); White Blood Count 10.5 X10*3/uL (4.8-10.8)
[2024-03-10 11:44] LABS: Alanine Aminotransferase 15 U/L (0-31); Alkaline Phosphatase 83 U/L (39-117); Anion Gap 12 (12-20); Aspartate Amino Transferase 18 U/L (5-31); Bilirubin Total 0.3 mg/dL (0.0-1.0); Blood Urea Nitrogen 18 mg/dL (9-16); Calcium 9.4 mg/dL (8.4-10.2); Carbon Dioxide 24 mmol/L (22-29); Chloride 105 mmol/L (96-108); Cholesterol 243 mg/dL (<200); Estimated Glomerular Filt Rate > 60; Glucose Fasting 117 mg/dL (60-99); HDL Cholesterol 60 mg/dL (>40); LDL Cholesterol Calculated 148 mg/dL (<100); Potassium 4.3 mmol/L (3.3-5.1); Sodium 137 mmol/L (135-145); Total Protein 7.4 g/dL (6.5-8.0); Triglycerides 178 mg/dL (<150)
[2024-03-10 11:48] LABS: Thyroid Stimulating Hormone 0.84 uIU/mL (0.32-4.0)
[2024-03-11 12:53] LABS: Lyme Abs Screen <0.90 index
[2024-03-16 15:33] LABS: Babesia IgG <1:64 titer (<1:64); Babesia IgM <1:20 titer (<1:20)
[2024-03-17 02:43] LABS: A. Phagocytophilum Ab IgG <1:64 (<1:64); A. Phagocytophilum Ab IgM <1:20 (<1:20); E. Chaffeensis Ab IgG <1:64 (<1:64); E. Chaffeensis Ab IgM <1:20 (<1:20)
== END 2024-03-10 09:53 | disposition home or self-care (01) ==
LOC: HO.LAB 09:52
PROVIDERS: PCP Internal Medicine; Visit Provider Internal Medicine
DX: R50.9 Fever, unspecified (principal); D64.9 Anemia, unspecified; N28.9 Disorder of kidney and ureter, unspecified; E78.5 Hyperlipidemia, unspecified; E03.9 Hypothyroidism, unspecified; T14.8XXA Other injury of unspecified body region, initial encounter; W57.XXXA Bitten or stung by nonvenomous insect and other nonvenomous arthropods, initial encounter; Y93.9 Activity, unspecified; Y92.9 Unspecified place or not applicable; Y99.9 Unspecified external cause status
CPT/HCPCS: 36415; 80053; 80061; 84443; 85025; 86617; 86618; 86666; 86753

== ENCOUNTER 2024-04-21 08:26 | Outpatient (AMB) | payer OTHER, SELFPAY ==
[2024-04-21 08:28] VITALS: BP 142/88; PULSE 83; O2SAT 96; BMI 32.2
--- NOTE | 2024-04-21 08:28 | MHC.PC.OV ---
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 Accompanied by: Self / Same As Patient Allergies albuterol [ALBUTEROL] Allergy (Unknown, Verified 04/21/24 08:28) ANAPHYLAXIS azithromycin [AZITHROMYCIN] Allergy (Unknown, Verified 04/21/24 08:28) ANGIOEDEMA, tingling tongue/throat bee venom protein (honey bee) Allergy (Unknown, Verified 04/21/24 08:28) Anaphylaxis guaifenesin [GUAIFENESIN] Allergy (Unknown, Verified 04/21/24 08:28) ANAPHYLACTIC, anaphylaxis iodine [IODINE] Allergy (Unknown, Verified 04/21/24 08:28) ANAPHYLAXIS, Slight throat swelling levofloxacin [Levaquin] Allergy (Unknown, Verified 04/21/24 08:28) rash tingling peanut [PEANUT] Allergy (Unknown, Verified 04/21/24 08:28) HIVES shellfish derived Allergy (Unknown, Verified 04/21/24 08:28) slight throat swelling Sulfa (Sulfonamide Antibiotics) [SULFA (SULFONAMIDE ANTIBIOTICS)] Allergy (Unknown, Verified 04/21/24 08:28) RASH atorvastatin Adverse Reaction (Intermediate, Verified 04/21/24 08:28) Sneezing Monistat Cream Allergy (Unknown, Uncoded 04/21/24 08:28) Rash Medication List - Last Reconciled 04/21/24 by Lion Teran MD dupilumab (Dupixent) mg subcut estradiol 1 mg PO DAILY fluticasone furoate-vilanterol 100-25 mcg/dose inhalation ipratropium bromide 17 mcg/actuation (Atrovent HFA) 0 mcg inhalation meclizine 25 mg PO QID PRN medroxyprogesterone 2.5 mg PO DAILY methylprednisolone (Medrol (Víctor)) PO PER PKG DIR rosuvastatin 5 mg PO DAILY tiotropium bromide 1.25 mcg/actuation 2 puffs PO DAILY tramadol 50 mg PO Q8H PRN zolpidem 5 mg PO BEDTIME PRN Tobacco use date assessed: 09/12/23 Dental Screening Dental Screen Date: 09/12/23 HPI Cold for 3 weeks HPI Details sinus infection for 3 weeks PFSH Medical History Multinodular thyroid Asthma Surgical History History of surgery on right wrist History of ankle surgery History of ear surgery Family History Father Myocardial infarction Diabetes Mother High cholesterol Diabetes Hypertension Breast cancer DDD (degenerative disc disease) Maternal Grandfather Mary's disease Thyroid disease Sister Overactive thyroid gland Maternal Aunt Thyroid disease Social History Housing: House Alcohol intake: current Alcohol intake frequency: holidays/special occasions only Patient Tobacco Use Status: Never used Tobacco Tobacco use type: Cigarette e-Cigarette/Vaping Use: Never Used Second Hand Smoke Exposure: No service: No Current occupational status: unemployed Cognitive needs: No Hearing needs: No Vision needs: No Questionnaire PHQ-9 Over the last 2 weeks, how often have you been bothered by any of the following problems? 1. Little interest or pleasure in doing things: not at all 2. Feeling down, depressed, or hopeless: not at all 3. Trouble falling or staying asleep, or sleeping too much: not at all 4. Feeling tired or having little energy: not at all 5. Poor appetite or overeating: not at all 6. Feeling bad about yourself - or that you are a failure or have let yourself or your family down: not at all 7. Trouble concentrating on things, such as reading the newspaper or watching television: not at all 8. Moving or speaking so slowly that other people could have noticed. Or the opposite - being so fidgety or restless that you have been moving around a lot more than usual: not at all 9. Thoughts that you would be better off or of hurting yourself in some way: not at all Total score: 0 Depression Screening Interpretation: Negative Depression Screening Done: Yes 59330 - PHQ-9 Billing: Yes Source: Developed by Drs. Diego Brown, Shaniqua Leonard, Alfonso Downey and colleagues, with an educational dagmar from [employer]. Thrive Questionnaire Date Thrive assessed: 09/12/23 AUDIT C Alcohol Use Questionnaire (AUDIT-C) 1. How often do you have a drink containing alcohol?: 2-4 times a month 2. How many drinks containing alcohol do you have on a typical day when you are drinking?: 1 or 2 3. How often do you have six or more drinks on one occasion?: Never Total Score: 2 Score Reviewed/Action Taken: Yes CLARISSA-7 AMB Questionnaire CLARISSA-7 Date CLARISSA - 7 assessed: 09/12/23 Source: Developed by Drs. Diego Brown, Shaniqua Leonard, Alfonso Downey and colleagues, with an educational dagmar from [employer]. Review of Systems Const Denies chills, Denies headache(s) and Denies weight loss ENT Denies headache(s) Card Denies chest pain, Denies syncope, Denies irregular heart rhythm and Denies dyspnea Resp Denies chest congestion, Denies cough and Denies dyspnea GI Denies abdominal pain, Denies change in stool character, Denies nausea and Denies vomiting Musc Denies deformity and Denies joint swelling Neuro Denies syncope and Denies headache(s) Physical exam (Primary Care) Vital Signs: Last Vital Signs Pulse 83 04/21/24 08:28 BP 142/88 H 04/21/24 08:28 Pulse Ox 96 04/21/24 08:28 Oxygen Delivery Method Room Air 04/21/24 08:28 BMI result Body Mass Index 32.2 Tobacco/Smoking Status: Tobacco use Status Tobacco use date assessed 09/12/23 04/21/24 08:33 Patient Tobacco Use Status Never used Tobacco 04/21/24 08:33 Tobacco use type Cigarette 04/21/24 08:33 e-Cigarette/Vaping Use Never Used 04/21/24 08:33 PHQ-9: PHQ-9 Score PHQ-9: Total score 0 04/21/24 08:33 Depression Screening Interpretation: Negative Thrive Assessment: Date of Thrive Assessment Date Thrive assessed 09/12/23 04/21/24 08:33 Const General: cooperative, comfortable, no acute distress and alert Neck Neck: Yes no lymphadenopathy Thyroid: Thyroid normal Resp Effort & Inspection: normal respiratory effort Auscultation: clear to auscultation bilaterally Percussion: percussion normal Cardio Jugular venous distension: no JVD Palpation: normal PMI Rate: regular rate Rhythm: regular rhythm Heart sounds: S1 normal heart sound present and S2 normal heart sound present GI Inspection: Yes normal to inspection Palpation (GI): No hepatosplenomegaly present Skin General skin exam: no rashes or lesions noted Extrem General: Yes no clubbing, cyanosis or edema Assessment and Plan Assessment & Plan (1) Sinusitis: Code(s): J32.9 - Chronic sinusitis, unspecified Plan: rx sent Medications: New methylprednisolone (Medrol (Víctor)) PO PER PKG DIR 21 ea 0RF amoxicillin-pot clavulanate 500-125 mg (Augmentin) 1 tab PO BID 10 tabs 0RF Coding Level of Care Code Est Pt Level 3 (79842) Diagnoses Sinusitis J32.9
== END 2024-04-21 08:46 | disposition home or self-care (01) ==
PROVIDERS: PCP Internal Medicine; Visit Provider Internal Medicine
DX: J32.9 Chronic sinusitis, unspecified (principal)
CPT/HCPCS: 99213

== ENCOUNTER 2024-04-28 13:09 | Outpatient (AMB) | payer OTHER, SELFPAY ==
--- NOTE | 2024-04-28 13:15 | MHC.PC.OV ---
Vital Signs 04/28/24 13:19 Height 5 ft 2 in Weight 176 lb BMI 32.2 BP 110/76 Blood Pressure Location Lt brachial Position Sitting Pulse 86 Pulse Source Pulse Oximeter Pulse Oximetry (%) 98 Oxygen Delivery Method Room Air Intake Visit Reasons: sinus infection, medication not working Intake Note: Patient is here to follow up on sinus infection. 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 Required: No Technical Support Consultant: Not Required per policy Accompanied by: Self / Same As Patient Allergies albuterol [ALBUTEROL] Allergy (Unknown, Verified 04/28/24 14:02) ANAPHYLAXIS azithromycin [AZITHROMYCIN] Allergy (Unknown, Verified 04/28/24 14:02) ANGIOEDEMA, tingling tongue/throat bee venom protein (honey bee) Allergy (Unknown, Verified 04/28/24 14:02) Anaphylaxis guaifenesin [GUAIFENESIN] Allergy (Unknown, Verified 04/28/24 14:02) ANAPHYLACTIC, anaphylaxis iodine [IODINE] Allergy (Unknown, Verified 04/28/24 14:02) ANAPHYLAXIS, Slight throat swelling levofloxacin [Levaquin] Allergy (Unknown, Verified 04/28/24 14:02) rash tingling peanut [PEANUT] Allergy (Unknown, Verified 04/28/24 14:02) HIVES shellfish derived Allergy (Unknown, Verified 04/28/24 14:02) slight throat swelling Sulfa (Sulfonamide Antibiotics) [SULFA (SULFONAMIDE ANTIBIOTICS)] Allergy (Unknown, Verified 04/28/24 14:02) RASH atorvastatin Adverse Reaction (Intermediate, Verified 04/28/24 14:02) Sneezing Monistat Cream Allergy (Unknown, Uncoded 04/28/24 14:02) Rash Medication List - Last Reconciled 04/28/24 by Troy Carr MD doxycycline hyclate 100 mg PO BID 21 days dupilumab (Dupixent) mg subcut estradiol 1 mg PO DAILY fluticasone furoate-vilanterol 100-25 mcg/dose inhalation ipratropium bromide 17 mcg/actuation (Atrovent HFA) 0 mcg inhalation medroxyprogesterone 2.5 mg PO DAILY prednisone 10 mg PO DAILY zolpidem 5 mg PO BEDTIME PRN Tobacco use date assessed: 04/28/24 Dental Screening Dental Screen Date: 09/12/23 HPI sinus infection, medication not working HPI Details 64-year-old female presents to the office for a sick visit. Patient has been sick with a sinus infection since . She has history of cleft lip repair and deafness. With symptoms of congestion and sinus pain, her hearing has decreased even further. Patient has had 1 round of doxycycline followed by amoxicillin and prednisone. 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 [facility] Medical History Multinodular thyroid Asthma Surgical History History of surgery on right wrist History of ankle surgery History of ear surgery Family History Father Myocardial infarction Diabetes Mother High cholesterol Diabetes Hypertension Breast cancer DDD (degenerative disc disease) Maternal Grandfather Mary's disease Thyroid disease Sister Overactive thyroid gland Maternal Aunt Thyroid disease Social History Housing: House Alcohol intake: current Alcohol intake frequency: holidays/special occasions only Patient Tobacco Use Status: Never used Tobacco Tobacco use type: Cigarette e-Cigarette/Vaping Use: Never Used Second Hand Smoke Exposure: No service: No Current occupational status: unemployed Cognitive needs: No Hearing needs: No Vision needs: No Questionnaire Thrive Questionnaire Date Thrive assessed: 09/12/23 Are you currently unemployed and looking for a job?: No CLARISSA-7 AMB Questionnaire CLARISSA-7 Date CLARISSA - 7 assessed: 09/12/23 Source: Developed by Drs. Diego Brown, Shaniqua Leonard, Alfonso Downey and colleagues, with an educational dagmar from [employer]. Physical exam (Primary Care) Vital Signs: Last Vital Signs Pulse 86 04/28/24 13:19 BP 110/76 04/28/24 13:19 Pulse Ox 98 04/28/24 13:19 Oxygen Delivery Method Room Air 04/28/24 13:19 BMI result Body Mass Index 32.2 Tobacco/Smoking Status: Tobacco use Status Tobacco use date assessed 04/28/24 04/28/24 13:24 Patient Tobacco Use Status Never used Tobacco 04/28/24 13:16 Tobacco use type Cigarette 04/28/24 13:16 e-Cigarette/Vaping Use Never Used 04/28/24 13:16 Thrive Assessment: Date of Thrive Assessment Date Thrive assessed 09/12/23 04/28/24 13:16 Const General: cooperative and healthy appearing Nutritional Appearance: well nourished Orientation/consciousness: patient oriented x3 Limitations: no limitations HENMT Head: Yes normal to inspection Eyes General: appearance normal, both eyes and all related structures Neck Neck: Yes normal visual inspection Chest Chest palpation & inspection: normal palpation of entire chest wall Resp Effort & Inspection: normal respiratory effort Skin Other: Face: Surgical scar. Neuro General: patient oriented x3 Assessment and Plan Assessment & Plan (1) Maxillary sinusitis: Code(s): J32.0 - Chronic maxillary sinusitis Plan: Patient has maxillary sinusitis not responding to antibiotics. Another round of antibiotics and prednisone will be started. A CT scan of the sinuses will be requested to determine if surgical drainage is needed. Orders: Orders CT head/brain wo IV con Today J32.0 - Chronic maxillary sinusitis CT sinus wo IV con Today J32.0 - Chronic maxillary sinusitis Medications: New doxycycline hyclate 100 mg PO BID 42 caps 0RF 21 days prednisone 6 pills by mouth day 1, 6 pills by mouth day 2, 5 pills by mouth day 3, 4 pills by mouth day 4, 3 pills by mouth day 5, 2 pills by mouth day 6, 1 pill by mouth day 7 and 1 pill by mouth day 8. 10 mg PO DAILY 28 tabs 0RF Coding Level of Care Code Est Pt Level 3 (19531) Diagnoses Maxillary sinusitis J32.0
[2024-04-28 13:19] VITALS: BP 110/76; PULSE 86; O2SAT 98; BMI 32.2
== END 2024-04-28 13:50 | disposition home or self-care (01) ==
PROVIDERS: PCP Internal Medicine; Visit Provider Internal Medicine
DX: J32.0 Chronic maxillary sinusitis (principal)

== ENCOUNTER → 2024-04-28 13:09 | Outpatient (BNVA) | payer OTHER, SELFPAY | PROVIDERS: PCP Internal Medicine; Visit Provider Internal Medicine | DX: J32.0 Chronic maxillary sinusitis (principal) ==

== ENCOUNTER 2024-05-10 13:53 | Outpatient (AMB) | payer OTHER, SELFPAY ==
[2024-05-10 13:55] VITALS: BP 142/84; PULSE 87; O2SAT 98; BMI 32.2
--- NOTE | 2024-05-10 13:55 | A.OFFPC_ITS ---
Vital Signs 05/10/24 13:55 Height 5 ft 2 in Weight 176 lb BMI 32.2 BP 142/84 H Blood Pressure Location Lt brachial Position Sitting Pulse 87 Pulse Source Pulse Oximeter Pulse Oximetry (%) 98 Oxygen Delivery Method Room Air Intake Visit Reasons: f/u sinus infection & Cough Homeopathic Doctor Required: No Accompanied by: Self / Same As Patient Allergies albuterol [ALBUTEROL] Allergy (Unknown, Verified 05/10/24 15:12) ANAPHYLAXIS azithromycin [AZITHROMYCIN] Allergy (Unknown, Verified 05/10/24 15:12) ANGIOEDEMA, tingling tongue/throat bee venom protein (honey bee) Allergy (Unknown, Verified 05/10/24 15:12) Anaphylaxis guaifenesin [GUAIFENESIN] Allergy (Unknown, Verified 05/10/24 15:12) ANAPHYLACTIC, anaphylaxis iodine [IODINE] Allergy (Unknown, Verified 05/10/24 15:12) ANAPHYLAXIS, Slight throat swelling levofloxacin [Levaquin] Allergy (Unknown, Verified 05/10/24 15:12) rash tingling peanut [PEANUT] Allergy (Unknown, Verified 05/10/24 15:12) HIVES shellfish derived Allergy (Unknown, Verified 05/10/24 15:12) slight throat swelling Sulfa (Sulfonamide Antibiotics) [SULFA (SULFONAMIDE ANTIBIOTICS)] Allergy (Unknown, Verified 05/10/24 15:12) RASH atorvastatin Adverse Reaction (Intermediate, Verified 05/10/24 15:12) Sneezing Monistat Cream Allergy (Unknown, Uncoded 05/10/24 15:12) Rash Medication List - Last Reconciled 05/10/24 by Troy Carr MD doxycycline hyclate 100 mg PO BID 21 days dupilumab (Dupixent) mg subcut estradiol 1 mg PO DAILY fluticasone furoate-vilanterol 100-25 mcg/dose inhalation ipratropium bromide 17 mcg/actuation (Atrovent HFA) 0 mcg inhalation medroxyprogesterone 2.5 mg PO DAILY zolpidem 5 mg PO BEDTIME PRN Tobacco use date assessed: 04/28/24 Dental Screening Dental Screen Date: 09/12/23 HPI f/u sinus infection & Cough HPI Details 64-year-old female presents to the [facility] for a follow-up visit. Patient still has not had a CT scan done. With the prednisone and the antibiotic is sinus congestions subsided. She still has a nonproductive cough that is worse at night. Feels exhausted. Unable to see her prepress operator or analysis specialist. [facility] Medical History Multinodular thyroid Asthma Surgical History History of surgery on right wrist History of ankle surgery History of ear surgery Family History Father Myocardial infarction Diabetes Mother High cholesterol Diabetes Hypertension Breast cancer DDD (degenerative disc disease) Maternal Grandfather Mary's disease Thyroid disease Sister Overactive thyroid gland Maternal Aunt Thyroid disease Social History Housing: House Alcohol intake: current Alcohol intake frequency: holidays/special occasions only Patient Tobacco Use Status: Never used Tobacco Tobacco use type: Cigarette e-Cigarette/Vaping Use: Never Used Second Hand Smoke Exposure: No service: No Current occupational status: unemployed Cognitive needs: No Hearing needs: No Vision needs: No Questionnaire Thrive Questionnaire Date Thrive assessed: 09/12/23 Are you currently unemployed and looking for a job?: No CLARISSA-7 AMB Questionnaire CLARISSA-7 Date CLARISSA - 7 assessed: 09/12/23 Source: Developed by Drs. Diego Brown, Shaniqua Leonard, Alfonso Downey and colleagues, with an educational dagmar from [employer]. Physical exam (Primary Care) Vital Signs: Last Vital Signs Pulse 87 05/10/24 13:55 BP 142/84 H 05/10/24 13:55 Pulse Ox 98 05/10/24 13:55 Oxygen Delivery Method Room Air 05/10/24 13:55 BMI result Body Mass Index 32.2 Tobacco/Smoking Status: Tobacco use Status Tobacco use date assessed 04/28/24 05/10/24 13:56 Patient Tobacco Use Status Never used Tobacco 05/10/24 13:56 Tobacco use type Cigarette 05/10/24 13:56 e-Cigarette/Vaping Use Never Used 05/10/24 13:56 Thrive Assessment: Date of Thrive Assessment Date Thrive assessed 09/12/23 05/10/24 13:56 Const General: cooperative and healthy appearing Nutritional Appearance: well nourished Orientation/consciousness: patient oriented x3 Limitations: no limitations HENMT Head: Yes normal to inspection Eyes General: appearance normal, both eyes and all related structures Neck Neck: Yes normal visual inspection Chest Chest palpation & inspection: normal palpation of entire chest wall Resp Effort & Inspection: normal respiratory effort Neuro General: patient oriented x3 Assessment and Plan Assessment & Plan (1) Cough: Code(s): R05.9 - Cough, unspecified Plan: The symptom of cough could be an exacerbation of her asthma. Patient takes Atrovent and Breo. The CT scan has been reordered today. Coding Level of Care Code Est Pt Level 3 (86715) Complex EM visit Add On G2211 Diagnoses Cough R05.9
== END 2024-05-10 15:05 | disposition home or self-care (01) ==
PROVIDERS: PCP Internal Medicine; Visit Provider Internal Medicine
DX: R05.9 Cough, unspecified (principal)

== ENCOUNTER → 2024-05-10 13:53 | Outpatient (BNVA) | payer OTHER, SELFPAY | PROVIDERS: PCP Internal Medicine; Visit Provider Internal Medicine ==

== ENCOUNTER 2024-06-15 07:31 | Outpatient (REF) | payer OTHER, SELFPAY ==
--- NOTE | ~2024-06-15 | CT_ITS ---
EXAMINATION: CT SINUS WITHOUT CONTRAST CLINICAL INFORMATION: Chronic maxillary sinusitis. COMPARISON: No prior sinus CT. CT head 08/06/2023. TECHNIQUE: Spiral noncontrast CT of the paranasal sinuses and maxillofacial region was performed in axial plane. Examination was carried out from the inferior maxilla to the mid temporal parietal bones, just above the petrous ridges. Sagittal, coronal, and thin section axial reformatted images were reconstructed from the axial data set. This CT examination was performed using dose optimization techniques as appropriate, variously including the following: *Automated exposure control *Adjustment of mA and/or kV according to patient size (this includes techniques or standardized protocols for targeted exams where dose is matched to indication/reason for exam; i.e. extremities or head) *Use of iterative reconstruction technique DLP: 106 mGy-cm FINDINGS: POSTOPERATIVE FINDINGS: -Left mastoidectomy. MAXILLARY DENTAL FINDINGS: -No acute disease. Old root canals. -Partial cleft hard palate on the left. Soft palate appears intact. NASAL CAVITY: -Normally pneumatized. No masses. -Nasal septum is essentially midline without spurring. TURBINATES: -Middle and inferior turbinates have normal morphology and appearance. MAXILLARY SINUSES: -Moderate polypoid mucosal thickening dependently left greater than right. Tiny air-fluid levels right greater than left. -Maxillary ostia are narrowed by mucosal thickening on both sides however a thin air channels remain patent. ETHMOID SINUSES: -Moderate scattered mucosal thickening bilaterally, anterior greater than posterior. FRONTAL SINUSES: -Both frontal recesses appear obstructed by mucosal thickening. The left is narrowed significantly by high riding artery nausea cell. -There is a small right interseptal cell. -The majority of the frontal sinuses are normally pneumatized. SPHENOID SINUSES: -Mild circumferential left mucosal thickening and moderate circumferential right with a small amount of fluid present. -Both sphenoethmoidal recesses appear obstructed by mucosal thickening. PREOPERATIVE ANATOMY: -Type III cribriform plates. They are symmetric. -Lateral lamella and fovea ethmoidalis are slightly lower on the right. -The left anterior ethmoid canal is surrounded by air. The right is not. ADDITIONAL FINDINGS: -Globes and orbital contents appear normal. -Extracranial soft tissues appear normal. Fatty change of both parotid glands. -Limited imaging of the intracranial contents demonstrate no mass effect, edema, or hemorrhage. -Right mastoid effusion, with some mild opacity in the middle ear cavity related to the suspensory ligaments of the stapes. -Left mastoidectomy. Left tympanic membrane retraction and associated left middle ear opacity. CT/CT sinus wo IV con IMPRESSION: 1. Moderate pansinus disease. 2. The frontal recesses, and sphenoethmoidal recesses are obstructed by mucosal thickening. 3. The maxillary ostia are narrowed by mucosal thickening however a thin air channels remain patent. 4. Partial cleft hard palate on the left. Soft palate appears intact. 5. Anatomical variation as discussed. 6. Left mastoidectomy. Right mastoid effusion. 7. See the body the report for details. Electronically signed by: Rivas Marquis MD 06/17/2024 04:31 PM DOROTA SEVERINO
== END 2024-06-15 07:32 | disposition home or self-care (01) ==
LOC: HO.CT 07:31
PROVIDERS: PCP Internal Medicine; Visit Provider Internal Medicine
DX: J32.0 Chronic maxillary sinusitis (principal)
CPT/HCPCS: 70486

== ENCOUNTER → 2024-06-15 07:32 | Outpatient (BNV) | payer OTHER, SELFPAY | PROVIDERS: PCP Internal Medicine; Visit Provider Radiology Diagnostic Radiology | DX: J32.0 Chronic maxillary sinusitis (principal) | CPT/HCPCS: 70486 ==

== ENCOUNTER 2024-06-15 08:12 | Outpatient (REF) | payer OTHER, SELFPAY | END 2024-06-15 08:13 | disposition home or self-care (01) | LOC: HO.LAB 08:12 | PROVIDERS: PCP Internal Medicine; Visit Provider Internal Medicine | DX: Z13.89 Encounter for screening for other disorder (principal) ==

== ENCOUNTER → 2024-06-29 13:26 | Outpatient (AMB) | payer OTHER, SELFPAY ==
--- NOTE | 2024-06-29 13:27 | MHC.PC.OV ---
Intake Visit Reasons: Sinus CT results Allergies albuterol [ALBUTEROL] Allergy (Unknown, Verified 07/06/24 14:36) ANAPHYLAXIS azithromycin [AZITHROMYCIN] Allergy (Unknown, Verified 07/06/24 14:36) ANGIOEDEMA, tingling tongue/throat bee venom protein (honey bee) Allergy (Unknown, Verified 07/06/24 14:36) Anaphylaxis guaifenesin [GUAIFENESIN] Allergy (Unknown, Verified 07/06/24 14:36) ANAPHYLACTIC, anaphylaxis iodine [IODINE] Allergy (Unknown, Verified 07/06/24 14:36) ANAPHYLAXIS, Slight throat swelling levofloxacin [Levaquin] Allergy (Unknown, Verified 07/06/24 14:36) rash tingling peanut [PEANUT] Allergy (Unknown, Verified 07/06/24 14:36) HIVES shellfish derived Allergy (Unknown, Verified 07/06/24 14:36) slight throat swelling Sulfa (Sulfonamide Antibiotics) [SULFA (SULFONAMIDE ANTIBIOTICS)] Allergy (Unknown, Verified 07/06/24 14:36) RASH atorvastatin Adverse Reaction (Intermediate, Verified 07/06/24 14:36) Sneezing Monistat Cream Allergy (Unknown, Uncoded 07/06/24 14:36) Rash Medication List - Last Reconciled 07/06/24 by Troy Carr MD doxycycline hyclate 100 mg PO BID dupilumab (Dupixent) mg subcut fluticasone furoate-vilanterol 200-25 mcg/dose (Breo Ellipta) 1 ea inhalation DAILY ipratropium bromide 17 mcg/actuation (Atrovent HFA) 0 mcg inhalation methylprednisolone 4 mg PO DIRECTED tiotropium bromide 1.25 mcg/actuation (Spiriva Respimat) 2 puffs inhalation DAILY zolpidem 5 mg PO BEDTIME PRN Tobacco use date assessed: 04/28/24 Dental Screening Dental Screen Date: 09/12/23 HPI HPI Comments History of Present Illness Details 64-year-old female wishes to discuss her medical health via tele visit. I 1st saw the patient on 04/28/2024 for a follow-up on sinusitis. Her PCP was not available and I saw her as a sick visit. Patient already had taken 2 rounds of antibiotics and prednisone for sinusitis. She reported a history of IgG deficiency and a history of infections that need prolonged use of antibiotics. Patient was given another round of antibiotics. Physical exam showed some sinus tenderness and a CT scan of the face was requested. Patient returned for a subsequent visit on May 10. The CT scan was still not processed. Her symptoms were better but she continued to have a nonproductive cough. She was not able to get an appointment with her junior architect are ENT. Patient subsequently saw the ENT surgeon on 06/14/2024. He did a nasal endoscopy which did not show any polyps or deviated septum. He has reviewed the CT scan which showed thickening of the sinuses. Patient is also seen an brazing furnace feeder who are following up. Patient continues to have symptoms of cold for the past week. The ENT provider had put her on doxycycline. She has a scheduled appointment with the brazing furnace feeder and pharmacy salesperson next week. She is on a tapering dose of methylprednisolone. On reviewing the brazing furnace feeder report, increased serum complement, increased CRP and increased CD4/CD8 ratio was noted. [facility] Medical History Multinodular thyroid Asthma Surgical History History of surgery on right wrist History of ankle surgery History of ear surgery Family History Father Myocardial infarction Diabetes Mother High cholesterol Diabetes Hypertension Breast cancer DDD (degenerative disc disease) Maternal Grandfather Mary's disease Thyroid disease Sister Overactive thyroid gland Maternal Aunt Thyroid disease Social History Housing: House Alcohol intake: current Alcohol intake frequency: holidays/special occasions only Patient Tobacco Use Status: Never used Tobacco Tobacco use type: Cigarette e-Cigarette/Vaping Use: Never Used Second Hand Smoke Exposure: No service: No Current occupational status: unemployed Cognitive needs: No Hearing needs: No Vision needs: No Questionnaire Thrive Questionnaire Date Thrive assessed: 09/12/23 Are you currently unemployed and looking for a job?: No AUDIT C Alcohol Use Questionnaire (AUDIT-C) 2. How many drinks containing alcohol do you have on a typical day when you are drinking?: 1 or 2 3. How often do you have six or more drinks on one occasion?: Never Total Score: 0 CLARISSA-7 AMB Questionnaire CLARISSA-7 Date CLARISSA - 7 assessed: 09/12/23 Source: Developed by Drs. Diego Brown, Shaniqua Leonard, Alfonso Downey and colleagues, with an educational dagmar from [employer]. Physical exam (Primary Care) Tobacco/Smoking Status: Tobacco use Status Tobacco use date assessed 04/28/24 06/29/24 13:29 Patient Tobacco Use Status Never used Tobacco 06/29/24 13:29 Tobacco use type Cigarette 06/29/24 13:29 e-Cigarette/Vaping Use Never Used 06/29/24 13:29 Thrive Assessment: Date of Thrive Assessment Date Thrive assessed 09/12/23 06/29/24 13:29 Telehealth Telehealth Telehealth Platform: [employer] Location of provider rendering services: practice address Location of patient: address on file Patient Identification confirmed using: Name, : Yes Telehealth method: video ([phone]) Patient verbally consented to treatment: Yes Patient verbally consented to billing insurance company: Yes Patient informed of any privacy concerns related to visit: Yes Minutes spent on Phone/Video with Pt.: 20 Coding Level of Care Code Tele Est Pt Level 4 (54050) Complex EM visit Add On G2211 Diagnoses Chronic sinusitis J32.9 Assessment & Plan Assessment & Plan (1) Chronic sinusitis: Code(s): J32.9 - Chronic sinusitis, unspecified Plan: Allergy blood work suggests that patient has ongoing inflammation. She is scheduled to .. see her brazing furnace feeder in the coming week to determine if they will restart her medications or weekly injections. This note was dictated on 07/06/2024. Prior to completion of the note I had a conversation with the patient. Patient continues to be at baseline of sniffles, postnasal drip. She is scheduled to see the brazing furnace feeder in August. I explained to her that there is no further need for blood work. We will continue current management of antibiotic and methylprednisolone.
== END ==
LOC: HO.HMCH 13:27
PROVIDERS: PCP Internal Medicine; Visit Provider Internal Medicine
DX: J32.9 Chronic sinusitis, unspecified (principal)

== ENCOUNTER → 2024-06-29 13:26 | Outpatient (BNVA) | payer OTHER, SELFPAY | PROVIDERS: PCP Internal Medicine; Visit Provider Internal Medicine ==

== ENCOUNTER 2024-06-30 08:21 | Outpatient (REF) | payer OTHER, SELFPAY ==
[2024-06-30 08:54] LABS: Basophils Absolute Auto 0.1 X10*3/uL (0.0-0.2); Basophils Percent Auto 0.4 % (0-2); Eosinophils Absolute Auto 0.1 X10*3/uL (0.0-0.4); Eosinophils Percent Auto 0.5 % (0-4); Hematocrit 38.8 % (37.0-47.0); Imm Gran Abs Auto 0.14 X10*3/uL (0.00-0.03); Imm Gran Pct Auto 1.1 % (0.0-0.4); Lymphocytes Absolute Auto 5.1 X10*3/uL (1.2-4.9); Lymphocytes Percent Auto 39.8 % (20-40); MANUAL DIFF FLAG SCAN; Mean Corpuscular HGB Conc 33.5 g/dl (31.0-35.0); Mean Corpuscular Hemoglobin 29.3 pg (27.0-33.0); Mean Corpuscular Volume 87.6 fL (80.0-98.0); Mean Platelet Volume 10.4 fL (9.4-12.3); Monocytes Percent Auto 7.6 % (2-11); Neutrophils Absolute Auto 6.5 x10*3/uL (2.0-8.3); Neutrophils Percent Auto 50.6 % (45-73); Platelet Count 318 X10*3/uL (160-400); Red Blood Count 4.43 X10*6/uL (4.20-5.50); Red Cell Distribution Width 13.2 % (11.0-16.0); SCAN SMEAR FLAG 1; White Blood Count 12.9 X10*3/uL (4.8-10.8)
[2024-06-30 09:23] LABS: SLIDE REVIEW VERIFIED
[2024-06-30 09:38] LABS: Alanine Aminotransferase 12 U/L (0-31); Albumin Level 3.9 g/dL (3.5-5.0); Alkaline Phosphatase 77 U/L (39-117); Anion Gap 12 (12-20); Aspartate Amino Transferase 14 U/L (5-31); Bilirubin Total 0.3 mg/dL (0.0-1.0); Blood Urea Nitrogen 25 mg/dL (9-16); Calcium 8.9 mg/dL (8.4-10.2); Carbon Dioxide 27 mmol/L (22-29); Chloride 105 mmol/L (96-108); Cholesterol 261 mg/dL (<200); Estimated Glomerular Filt Rate > 60; Glucose Fasting 89 mg/dL (60-99); HDL Cholesterol 54 mg/dL (>40); LDL Cholesterol Calculated 174 mg/dL (<100); Potassium 3.9 mmol/L (3.3-5.1); Sodium 140 mmol/L (135-145); Total Protein 6.7 g/dL (6.5-8.0); Triglycerides 167 mg/dL (<150)
== END 2024-06-30 08:22 | disposition home or self-care (01) ==
LOC: HO.LAB 08:21
PROVIDERS: PCP Internal Medicine; Visit Provider Internal Medicine
DX: Z13.0 Encounter for screening for diseases of the blood and blood-forming organs and certain disorders involving the immune mechanism (principal); Z13.220 Encounter for screening for lipoid disorders; Z13.9 Encounter for screening, unspecified
CPT/HCPCS: 36415; 80053; 80061; 85025

== ENCOUNTER 2024-07-21 12:13 | Outpatient (REF) | payer OTHER, SELFPAY ==
[2024-07-21 13:48] LABS: C Reactive Protein 1.97 mg/dL (< or = 0.50)
--- OUTSIDE RECORDS SUMMARY | 2024-07-22 02:00 | XMS_ITS | Patient Health Record ---
[facility] Address [address] [place] [address] Care Team Providers Care Magazine Editor Name Role Phone Jeffry PHELAN, Lion Primary Care Provider Unavaila kristofer Khloe Adler Unavailable [phone] Allergies Allergen (clinical drug ingredient) Drug/Non Drug Allergy documented on EMR Reaction Allergy Type Onset Date Status albuterol Albuterol anaphylaxis Drug Allergy Activ e Biaxin hives Drug Allergy Active ciprofloxacin Cipro rash Drug Allergy Act marichuy erythromycin Erythromycin hives Drug Allergy A ctive Iodine anaphylaxis Drug Allergy Activ e Levaquin rash Drug Allergy Active azithromycin Zithromax Z-Víctor Unknown Drug Allergy Active atorvastatin Atorvastatin sneezing,congest i on Drug Allergy Active Shellfish (FN) Shellfish-derived Products Unknown Drug Allergy Active Substance with sulfonamide structure and antibacterial mechanism of action (substance) Sulfa Antibiotics Unknown Drug Allergy Active Reason For Referral No Information Medications Medication SIG (Take, Route, Frequency, Duration) Notes Start Date End Date Status Breo Ellipta Active Estradiol 1 mg Activ e Crestor Active medroxyPROGESTERone Acetate Active Atorvastatin Calcium 10 MG 1 tablet Orally once a day Not-Taking ZyrTEC Active Dupixent once every two weeks Active Diclofenac Sodium 50 MG 1 tablet as need ed Orally Twice a day for 30 days 10/17/2022 Active predniSONE Not-Takin g Ibuprofen 600 MG 1 tablet Orally twice a day for 30 days 10/01/2013 Not-Taking EpiPen Active Advair Diskus Not-Ta debby Magnesium-Zinc 133.33-5 MG as directed Orally Active Lamisil 250 250 MG 1 Tab Oral Daily for 90 09/20/2014 Not-Taking Spiriva Respimat 2.5 MCG/ACT 2 puffs Inhalation Once a day Active Fasenra Pen 30 MG/ML as directed Subcutaneous Not-Taking Atrovent Active Immunizations Vaccine Route Administration Date Status Comme nts COVID-19 Moderna Vaccine Unknown 05/13/2022 Administered 4th 11/22/2021 3rd 06/11/2021 2nd 12/07/2020 1st 10/06/2020 Social History Alcohol Screen Question Answer Notes Did you have a drink contain ing alcohol in the past year? Yes How often did you have a dri nk containing alcohol in the past year? 2 to 4 times a month (2 points) Points 2 Interpretation Negative Tobacco use other than smoking: Question Answer Notes Are you an other tobacco user? No Problems Problem Type SNOMED Code ICD Code Onset Dates Problem Status W/U Status Risk Notes Problem Acquired hallux valgus (91638081) Hallux valgus (acquired), left foot (M20.12) Active confirmed Problem Localized, primary osteoarthritis of the ankle and/or foot (571188879) Primary osteoarthrit is, left ankle 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) Active confirmed Problem Acquired hallux valgus (60671548) Hallux valgus (acquired), right foot (M20.11) Active confirmed Problem Acquired hammer toe of right foot (7028899245389989) Other hammer toe(s) (acquired), right foot (M20.41) Active confirmed Problem Acquired hammer toe of left foot (1990217037679364) Other hammer toe(s) (acquired), left foot (M20.42) Active confirmed Plan Of Treatment Pending Test Test Name Order Date *Liver Function Test (LFT) 09/07/2014 X ray : Foot, right 3V 02/27/2018 [id number] NAIL, 6 OR MORE 11/01/2013 [id number] NAIL, 6 OR MORE 03/03/2014 [id number] NAIL, 6 OR MORE 06/01/2014 [id number] NAIL, 6 OR MORE 09/07/2014 [id number] NAIL, 6 OR MORE 11/14/2014 [id number] TENDON SHEATH/LIGAMENT 1 08/12/2021 [id number] TENDON SHEATH/LIGAMENT 0 10/17/2022 [id number] TENDON SHEATH/LIGAMENT 0 11/25/2022 Insurance Providers Payer Name Payer Address Payer Phone Subscriber Number Group Number Insured Name Patient Relationship to Insured Coverage Start Date Coverage End Date [facility] [address] [place] [phone] [id number] Iam Andrew Spouse - patient is the spouse of the insured Medical (General) History Medical History History ICD Code asthma Back,Hip,and Knee pain Broken bones Thyroid disorder Chicken pox Arthritis covid-19 Psoriasis Sciatica chronic sinusitis thyroid Surgical History Surgery Date(Month/Year) cleft lip repair cleft palate repair ear surgery-left ankle surgery-left Cervical disc 01/2014 tendon repair 2010 wrist surgery Hospitalization History Reason Date(Month/Year) [facility] bronchitis 07/07/22
[2024-07-27 14:19] LABS: Myeloperoxidase Antibody <1.0 AI; Proteinase 3 PR3 Antibodies <1.0 AI
== END 2024-07-21 12:14 | disposition home or self-care (01) ==
LOC: HO.LAB 12:13
PROVIDERS: PCP Internal Medicine; Visit Provider Internal Medicine
DX: R51.9 Headache, unspecified (principal)
CPT/HCPCS: 36415; 86021; 86140

== ENCOUNTER 2024-08-05 09:13 | Outpatient (AMB) | payer OTHER, SELFPAY ==
--- NOTE | 2024-08-05 09:22 | A.OFFPC_ITS ---
Vital Signs 08/05/24 09:23 Height 5 ft 2 in Weight 175 lb BMI 32.0 BP 132/74 Blood Pressure Location Lt brachial Position Sitting Pulse 91 Pulse Source Pulse Oximeter Pulse Oximetry (%) 97 Oxygen Delivery Method Room Air Intake Visit Reasons: go over labs/discuss treatment Intake Note: Patient is here to follow up on Lab results and discuss treatment plan. 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: Not Required per policy Accompanied by: Self / Same As Patient Allergies albuterol [ALBUTEROL] Allergy (Unknown, Verified 08/05/24 09:23) ANAPHYLAXIS azithromycin [AZITHROMYCIN] Allergy (Unknown, Verified 08/05/24 09:23) ANGIOEDEMA, tingling tongue/throat bee venom protein (honey bee) Allergy (Unknown, Verified 08/05/24 09:23) Anaphylaxis guaifenesin [GUAIFENESIN] Allergy (Unknown, Verified 08/05/24 09:23) ANAPHYLACTIC, anaphylaxis iodine [IODINE] Allergy (Unknown, Verified 08/05/24 09:23) ANAPHYLAXIS, Slight throat swelling levofloxacin [Levaquin] Allergy (Unknown, Verified 08/05/24 09:23) rash tingling peanut [PEANUT] Allergy (Unknown, Verified 08/05/24 09:23) HIVES shellfish derived Allergy (Unknown, Verified 08/05/24 09:23) slight throat swelling Sulfa (Sulfonamide Antibiotics) [SULFA (SULFONAMIDE ANTIBIOTICS)] Allergy (Unknown, Verified 08/05/24 09:23) RASH atorvastatin Adverse Reaction (Intermediate, Verified 08/05/24 09:23) Sneezing Monistat Cream Allergy (Unknown, Uncoded 08/05/24 09:23) Rash Tobacco use date assessed: 08/05/24 Dental Screening Dental Screen Date: 09/12/23 [facility] Medical History Multinodular thyroid Asthma Surgical History History of surgery on right wrist History of ankle surgery History of ear surgery Family History Father Myocardial infarction Diabetes Mother High cholesterol Diabetes Hypertension Breast cancer DDD (degenerative disc disease) Maternal Grandfather Mary's disease Thyroid disease Sister Overactive thyroid gland Maternal Aunt Thyroid disease Social History Housing: House Alcohol intake: current Alcohol intake frequency: holidays/special occasions only Patient Tobacco Use Status: Never used Tobacco Tobacco use type: Cigarette e-Cigarette/Vaping Use: Never Used Second Hand Smoke Exposure: No service: No Current occupational status: unemployed Cognitive needs: No Hearing needs: No Vision needs: No Questionnaire Thrive Questionnaire Date Thrive assessed: 09/12/23 Are you currently unemployed and looking for a job?: No CLARISSA-7 AMB Questionnaire CLARISSA-7 Date CLARISSA - 7 assessed: 09/12/23 Source: Developed by Drs. Diego Brown, Shaniqua Leonard, Alfonso Downey and colleagues, with an educational dagmar from [employer]. Physical exam (Primary Care) Vital Signs: Last Vital Signs Pulse 91 08/05/24 09:23 BP 132/74 08/05/24 09:23 Pulse Ox 97 08/05/24 09:23 Oxygen Delivery Method Room Air 08/05/24 09:23 BMI result Body Mass Index 32.0 Tobacco/Smoking Status: Tobacco use Status Tobacco use date assessed 08/05/24 08/05/24 09:38 Patient Tobacco Use Status Never used Tobacco 08/05/24 09:38 Tobacco use type Cigarette 08/05/24 09:38 e-Cigarette/Vaping Use Never Used 08/05/24 09:38 Thrive Assessment: Date of Thrive Assessment Date Thrive assessed 09/12/23 08/05/24 09:38 Coding Level of Care Code Est Pt Level 4 (44834) Complex EM visit Add On G2211 Diagnoses Chronic sinusitis J32.9 Assessment & Plan Assessment & Plan (1) Chronic sinusitis: Code(s): J32.9 - Chronic sinusitis, unspecified Plan: History of Present Illness The patient is a 64-year-old female presenting with chronic sinus congestion and persistent sinonasal symptoms. The congestion has been ongoing, with perceived exacerbation since April. The patient reports it feels similar to having a continual cold localized to sinus areas, with no coughing or chest involvement. 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 The chronic symptoms have persisted despite treatment with Brio, Zyrtec, and Flonase, and prior use of Spiriva, which was discontinued due to improved asthma control. The patient has also experienced yellow nasal discharge and thick mucus, with no relief from current antimicrobial therapy, such as doxycycline and Medrol, improving symptoms only partially. Recent tests revealed an elevated white blood cell count and C-reactive protein but negative ANCA results, suggesting inflammation without autoimmune disease. She has not seen a specialist since early June, with discussions of potential infectious causes such as fungal components but no cultures were taken. Congestion is affecting daily activities, worsening aggravated by environmental and seasonal factors, albeit well managed in prior years with immunotherapy. Despite allergies being controlled, chronic sinus inflammation and heaviness persist. Social History - Retired; does not currently work - Family-oriented, visits from out-of-town family members during holidays - Watches her granddaughter once a week - Unable to engage in physical workouts due to medical condition - Undergoing ankle surgery for ligament repair Review of Systems - Respiratory: Reports difficulty breathing nasally, congestion alternating sides - General: Denies depression; Minimal anxiety - Neurological: Denies chronic headaches or migraines Physical Exam General: Cooperative and healthy appearing Nutritional Appearance: Well nourished Orientation/consciousness: Patient oriented x3 Limitations: No limitations Head: Normal to inspection General: Appearance normal, both eyes and all related structures Neck: Normal visual inspection Chest: Normal palpation of entire chest wall Respiratory: Normal respiratory effort Neurology: Patient oriented x3 Results - Labs: Elevated white blood cell count, Elevated C-reactive protein - Tests: ANCA negative - Imaging: CT of sinuses indicating mucosal thickening with no polyps or major structural abnormalities Plan - Discuss consultation with ENT for advanced imaging review and possible procedural interventions. - Initiate another course of doxycycline to address persistent symptoms. - Consideration of nasal discharge culture pending experimental ENT evaluation. - Continue with saline irrigation, Flonase, and prescribed medications for current symptom management. - Reinforce with prednisone to alleviate inflammation and provide symptomatic relief. - Evaluate potential benefits of acupuncture based on prior positive back pain experiences. Patient was informed and verbally consented to the use of an ambient scribe for clinic note documentation during this visit. Discussion Notes I informed the patient about the difficulty of finding specific infections without sinus cultures and discussed the option to contact the ENT for possible procedural intervention like a sinus puncture. We discussed the possibility of repeating doxycycline and adding prednisone to manage persistent sinusitis symptoms more effectively. I assured her that finding a solution might take time and emphasized checking with the ENT to see if anything further can be done. We spoke about the risks of not treating and the catheterization procedures. Antibiotics were recommended based on the history of partial response, avoiding foreseeable harmful allergies. We discussed the patient's overall sluggish symptom improvement and potential escalation strategies, keeping options for infectious disease consultation and advanced testing open for further diagnosis based on ENT findings. Patient Instructions - Continue current medication regimen with Flonase and [id number] allergy medications. - Start prescribed antibiotics (doxycycline) as directed. - Use nasal saline irrigation regularly. - Maintain follow-up appointments and remain alert to any changes in symptoms. - Seek immediate care if nasal congestion worsens significantly or breathing becomes increasingly difficult. - Complete scheduling for preventive colonoscopy as soon as possible. - Contact ENT for any further procedural or surgical evaluation of sinus issues. - Resume acupuncture as complementary therapy when schedule allows. - Ensure family members around are in good health to prevent aggravation of symptoms. Plan Call placed to her ENT surgeon. Is there an aspirate that can be obtained? Further treatment options? Meanwhile a trial of abx and prednisone sent.
[2024-08-05 09:23] VITALS: BP 132/74; PULSE 91; O2SAT 97; BMI 32.0
== END 2024-08-05 10:12 | disposition home or self-care (01) ==
PROVIDERS: PCP Internal Medicine; Visit Provider Internal Medicine
DX: J32.9 Chronic sinusitis, unspecified (principal)

== ENCOUNTER → 2024-08-05 09:13 | Outpatient (BNVA) | payer OTHER, SELFPAY | PROVIDERS: PCP Internal Medicine; Visit Provider Internal Medicine ==

== ENCOUNTER 2024-09-24 09:53 | Outpatient (AMB) | payer OTHER, SELFPAY ==
--- NOTE | 2024-09-24 09:55 | A.OFFPC_ITS ---
Vital Signs 09/24/24 09:56 Height 5 ft 2 in Weight 178 lb 6 oz BMI 32.6 BP 138/88 Blood Pressure Location Lt brachial Position Sitting Pulse 95 Pulse Source Pulse Oximeter Pulse Oximetry (%) 98 Oxygen Delivery Method Room Air Intake Visit Reasons: pe Allergies albuterol [ALBUTEROL] Allergy (Unknown, Verified 09/24/24 09:55) ANAPHYLAXIS azithromycin [AZITHROMYCIN] Allergy (Unknown, Verified 09/24/24 09:55) ANGIOEDEMA, tingling tongue/throat bee venom protein (honey bee) Allergy (Unknown, Verified 09/24/24 09:55) Anaphylaxis guaifenesin [GUAIFENESIN] Allergy (Unknown, Verified 09/24/24 09:55) ANAPHYLACTIC, anaphylaxis iodine [IODINE] Allergy (Unknown, Verified 09/24/24 09:55) ANAPHYLAXIS, Slight throat swelling levofloxacin [Levaquin] Allergy (Unknown, Verified 09/24/24 09:55) rash tingling peanut [PEANUT] Allergy (Unknown, Verified 09/24/24 09:55) HIVES shellfish derived Allergy (Unknown, Verified 09/24/24 09:55) slight throat swelling Sulfa (Sulfonamide Antibiotics) [SULFA (SULFONAMIDE ANTIBIOTICS)] Allergy (Unknown, Verified 09/24/24 09:55) RASH atorvastatin Adverse Reaction (Intermediate, Verified 09/24/24 09:55) Sneezing Monistat Cream Allergy (Unknown, Uncoded 09/24/24 09:55) Rash Medication List - Last Reconciled 09/24/24 by Rosio Phipps PA-C dupilumab (Dupixent) mg subcut estradiol 1 mg PO DAILY fluticasone furoate-vilanterol 100-25 mcg/dose (Breo Ellipta) 1 ea inhalation DAILY ipratropium bromide 17 mcg/actuation (Atrovent HFA) 0 mcg inhalation medroxyprogesterone 2.5 mg PO DAILY zolpidem 5 mg PO BEDTIME PRN Tobacco use date assessed: 09/24/24 Dental Screening Dental Screen Date: 09/24/24 Did you have a dental visit in the last 12 months?: Yes Did you have a dental problem in the last 6 months where you did not have access to dental care?: No Was dental information given to patient?: Patient has dentist [facility] Medical History (Updated 09/24/24 @ 13:43 by Rosio Phipps PA-C) History of mammogram (~2023) Allergies Hx of thyroid nodule History of recent fall Annual physical exam Right hip pain Multinodular thyroid Asthma Surgical History History of surgery on right wrist History of ankle surgery History of ear surgery Family History Father Myocardial infarction Diabetes Mother High cholesterol Diabetes Hypertension Breast cancer DDD (degenerative disc disease) Maternal Grandfather Mary's disease Thyroid disease Sister Overactive thyroid gland Maternal Aunt Thyroid disease Social History Housing: House Alcohol intake: current Alcohol intake frequency: holidays/special occasions only Patient Tobacco Use Status: Never used Tobacco Tobacco use type: Cigarette e-Cigarette/Vaping Use: Never Used Second Hand Smoke Exposure: No service: No Current occupational status: unemployed Cognitive needs: No Hearing needs: No Vision needs: No Questionnaire PHQ-9 Over the last 2 weeks, how often have you been bothered by any of the following problems? 1. Little interest or pleasure in doing things: not at all 2. Feeling down, depressed, or hopeless: not at all 3. Trouble falling or staying asleep, or sleeping too much: not at all 4. Feeling tired or having little energy: not at all 5. Poor appetite or overeating: not at all 6. Feeling bad about yourself - or that you are a failure or have let yourself or your family down: not at all 7. Trouble concentrating on things, such as reading the newspaper or watching television: not at all 8. Moving or speaking so slowly that other people could have noticed. Or the opposite - being so fidgety or restless that you have been moving around a lot more than usual: not at all 9. Thoughts that you would be better off or of hurting yourself in some way: not at all Total score: 0 Depression Screening Interpretation: Negative Depression Screening Done: Yes 56828 - PHQ-9 Billing: Yes Source: Developed by Drs. Diego Brown, Shaniqua [place], Alfonso Downey and colleagues, with an educational dagmar from [employer]. Thrive Questionnaire Date Thrive assessed: 09/24/24 I am a: Patient What is your living situation today?: I choose not to answer this question Within the past 12 months, did the food you bought not last and you didn't have the money to get more?: I choose not to answer this question Within the past 12 months, did you worry whether your food would run out before you got money to buy more?: I choose not to answer this question Do you have trouble paying for medicines?: I choose not to answer this question Do you have trouble getting transportation to medical appointments?: I choose not to answer this question Do you have trouble paying your heating and electricity bill?: I choose not to answer this question Do you have trouble taking care of your child, family member or friend?: I choose not to answer this question Do you have trouble with day-to-day activities such as bathing, preparing meals, shopping, managing finances, etc.?: I choose not to answer this question Are you currently unemployed and looking for a job?: I choose not to answer this question Are you interested in more education?: I choose not to answer this question Please select the resources that you would like help with: None Currently or been in a relationship where the following occur: I choose not to answer THRIVE Score: 0 AUDIT C Alcohol Use Questionnaire (AUDIT-C) 1. How often do you have a drink containing alcohol?: 2-4 times a month 2. How many drinks containing alcohol do you have on a typical day when you are drinking?: 1 or 2 3. How often do you have six or more drinks on one occasion?: Never Total Score: 2 Score Reviewed/Action Taken: Yes CLARISSA-7 AMB Questionnaire CLARISSA-7 Date CLARISSA - 7 assessed: 09/24/24 Feeling nervous, anxious, or on edge: 0 = Not at all Not being able to stop or control worryin = Not at all Worrying too much about different things: 0 = Not at all Trouble relaxin = Not at all Being so restless that it is hard to sit still: 0 = Not at all Becoming easily annoyed or irritable: 0 = Not at all Feeling afraid as if something awful might happen: 0 = Not at all Total CLARISSA-7 score (0-4 normal; 5-9 mild; 10-14 moderate; 15-21 severe): 0 Source: Developed by Drs. Diego Brown, Shaniqua [place], Alfonso Downey and colleagues, with an educational dagmar from [employer]. CLARISSA-7 Assessment Billing CLARISSA-7 Assessment Tool: CLARISSA-7 Assessment 62776 Physical exam (Primary Care) Vital Signs: Last Vital Signs Pulse 95 09/24/24 09:56 BP 138/88 09/24/24 09:56 Pulse Ox 98 09/24/24 09:56 Oxygen Delivery Method Room Air 09/24/24 09:56 Care Plan Goal for BP management: <130/80 at goal BMI result Body Mass Index 32.6 BMI Assessment/Plan discussion: High BMI High, discussed plan: lifestyle, weight reduction, dietary, physical activity and alcohol moderation Tobacco/Smoking Status: Tobacco use Status Tobacco use date assessed 09/24/24 09/24/24 10:01 Patient Tobacco Use Status Never used Tobacco 09/24/24 10:01 Tobacco use type Cigarette 09/24/24 10:01 e-Cigarette/Vaping Use Never Used 09/24/24 10:01 PHQ-9: PHQ-9 Score PHQ-9: Total score 0 09/24/24 10:25 Depression Screening Interpretation: Negative Thrive Assessment: Date of Thrive Assessment Date Thrive assessed 09/24/24 09/24/24 10:01 Currently or been in a relationship where the following occur: I choose not to answer Coding Level of Care Code Est Pt Prev Care 40-64y(48809) Diagnoses Right hip pain M25.551 History of recent fall Z91.81 Hx of thyroid nodule Z86.39 Multinodular thyroid E04.2 Hyperlipidemia E78.5 Asthma J45.909 Annual physical exam Z00.00 Allergies T78.40XA Additional Codes CLARISSA-7 Assessment Billing - CLARISSA-7 Assessment Tool: CLARISSA-7 Assessment 93014 ([id number]) PHQ-9 - 33010 - PHQ-9 Billing: Yes ([id number]) Assessment & Plan Assessment & Plan (1) Right hip pain: Code(s): M25.551 - Pain in right hip Category: Medical Plan: Patient has normal steady gait. No obvious deformities. Will order right hip and pelvis x-ray. Patient declined any medication for pain such as NSAIDs or Tylenol or muscle relaxers. Condition is stable will continue to monitor. (2) History of recent fall: Code(s): Z91.81 - History of falling Category: Medical Plan: Patient has normal steady gait. No obvious deformities. Will order right hip and pelvis x-ray. Patient declined any medication for pain such as NSAIDs or Tylenol or muscle relaxers. Condition is stable will continue to monitor. (3) Hx of thyroid nodule: Code(s): Z86.39 - Personal history of other endocrine, nutritional and metabolic disease Category: Medical Plan: Will repeat thyroid ultrasound due to patient's last thyroid ultrasound was 2021 revealed multiple thyroid nodules. Condition is chronic and stable (4) Multinodular thyroid: Code(s): E04.2 - Nontoxic multinodular goiter Category: Medical Plan: Patient thyroid TSH level on 03/10/24 was WNL. Will repeat thyroid ultrasound due to patient's last thyroid ultrasound was 2021 revealed multiple thyroid nodules. Condition is chronic and stable (5) Hyperlipidemia: Code(s): E78.5 - Hyperlipidemia, unspecified Category: Medical Plan: Patient reports she is allergic to statins. Her triglycerides were 167, total cholesterol 261, LDL 174 and HDL of 54 on 06/30/2024. Will start patient on [place] 3, fish oil, Co Q10 Ally sex in 6 months. Condition is chronic and stable continue to monitor. (6) Asthma: Code(s): J45.909 - Unspecified asthma, uncomplicated Category: Medical Plan: Patient to continue Atrovent, Breo, dupixent. Condition is chronic and stable 70 to monitor. (7) Annual physical exam: Code(s): Z00.00 - Encounter for general adult medical examination without abnormal findings Category: Medical (8) Allergies: Code(s): T78.40XA - Allergy, unspecified, initial encounter Category: Medical Plan: Patient has an appointment on the 30/03 for allergy shots. She is currently on dupixent. Condition is chronic and stable any to monitor. Plan Plan - Continue Dupixent every two weeks for asthma management. - Prescribe combination supplement of CoQ10, fish oil, and [place]-3 to address rising cholesterol. - Obtain records from ankle surgery to determine antibiotic and anesthesia details for future reference. - Suggest right hip x-ray to rule out any fractures or significant injury post- fall. - Encourage scheduling of colonoscopy and mammogram as part of preventative health measures. - Recommend an ultrasound to follow up on thyroid nodules due to family history and previous biopsy. Orders: Orders Complete Blood Count Auto Diff Today Z00.00 - Encounter for general adult medical examination without abnormal findings Liver Panel Today Z00.00 - Encounter for general adult medical examination without abnormal findings Magnesium Today Z00.00 - Encounter for general adult medical examination without abnormal findings TSH reflex Free T4 Today Z00.00 - Encounter for general adult medical examination without abnormal findings Vitamin B1 Today Z00.00 - Encounter for general adult medical examination without abnormal findings Vitamin B12 and Folate Today Z00.00 - Encounter for general adult medical examination without abnormal findings Vitamin D 25-OH Total Today Z00.00 - Encounter for general adult medical examination without abnormal findings PTH Intact Intraoperative Today Z00.00 - Encounter for general adult medical examination without abnormal findings Phosphorus Today Z00.00 - Encounter for general adult medical examination without abnormal findings XR hip RT w PEL1V Today M25.551 - Pain in right hip, Z91.81 - History of falling Comprehensive [place]. Panel Fast Today Z00.00 - Encounter for general adult medical examination without abnormal findings Creatine Kinase Total Today Z00.00 - Encounter for general adult medical examination without abnormal findings Hemoglobin A1c Today Z00.00 - Encounter for general adult medical examination without abnormal findings Lipid Panel Today Z00.00 - Encounter for general adult medical examination without abnormal findings US thyroid Today Z86.39 - Personal history of other endocrine, nutritional and metabolic disease Referrals Endocrinology Referral E04.2 - Nontoxic multinodular goiter, Z86.39 - Personal history of other endocrine, nutritional and metabolic disease Medications: New cqgyd-4-yza-epa-fish oil-coQ10 [phone] mg (CoQmax [place]) 1 cap PO DAILY 90 caps 3RF Refilled zolpidem 5 mg PO BEDTIME PRN 30 tabs 5RF insomnia Patient Instructions: Patient Instructions - Continue current asthma medications as directed, including Dupixent injections. - Monitor and report any new persistence of hip pain; await results from x-ray. - Schedule a colonoscopy and mammogram at your earliest convenience. - Start the prescribed CoQ10, fish oil, and [place]-3 supplements as directed for cholesterol management. - Increase activity gradually as tolerated post-surgery, considering pain levels. - Follow-up in six months for blood work to re-evaluate cholesterol levels and overall health. - Notify us of any changes in your health, especially significant pain, unexpected weight loss, or changes in respiratory status. Scribe Plan - Not visible on output: History of Present Illness The patient is a 64-year-old female presenting for an annual physicam exam. In addition she would like to discuss her concerns regarding her status post-ankle surgery, asthma management. She underwent ankle surgery on August 10 for bone fragments, impingement, and a chronic ligament tear, which required both arthroscopic examination and subsequent open repair with an internal brace. The surgical recovery seems steady, but she experienced a fall approximately five weeks ago, which resulted in right hip pain upon sitting. Her asthma has historically been uncontrolled; however, with the initiation of Dupixent injections every two weeks, she reports significant symptomatic improvement. She continues to use Breo daily and Atrovent as a rescue inhaler due to an albuterol allergy. Her hyperlipidemia has been challenging, as she cannot tolerate statins due to muscle pain and is currently managing this condition with CoQ10 and fish oil supplements. The patient has a history of thyroid nodules, previously biopsied and evaluated, with an geological engineer recently transitioning out of her care. She has had multiple ear surgeries due to recurrent infections, leading to hearing loss. Additionally, her familial history includes high cholesterol and heart disease. Her last blood work in June indicated rising cholesterol levels, further motivating lifestyle modifications and supplementation strategies to manage her lipid profile. Social History - Reports limited mobility and increased sedentary behavior post-surgery. - Attempts weight management despite reduced activity due to recovery. - Expresses familial history of hyperlipidemia and heart disease. - Mentions a supportive home environment with her also practicing similar lifestyle modifications for high cholesterol. Review of Systems - Musculoskeletal: Reports right hip pain when sitting, denies swelling or pain while walking. - Neurological: Denies any significant new neurological symptoms. - Respiratory: Denies shortness of breath or chest pain post-asthma control with medication. - Gastrointestinal: Denies abdominal pain, normal bowel habits reported. - Genitourinary: Denies urinary or bowel incontinence or retention. Physical Exam Appearance: Alert. Oriented X3. No acute distress. Head: Normal external exam. Normocephalic. Atraumatic. Eyes: Pupils are equal, round, and reactive to light. Extraocular movements intact. Conjunctiva and sclera normal. Eyelids normal. Ears: External auditory canal normal. Tympanic membranes normal, but scarring noted. Throat: Pharynx normal. Uvula midline. Moist mucous membranes. Neck: Normal inspection. Neck supple. Full range of motion. No adenopathy. Thyroid Normal. No meningeal signs. No neck mass noted. Cardiovascular: Normal heart rate and rhythm. Heart sound normal. No murmurs noted. Pulses normal throughout. Respiratory: No respiratory distress. Painless inspiration. Breath sounds normal. No wheezes/rales/rhonchi noted. Chest nontender. No accessory muscle usage noted or decreased air movement noted. Abdomen: Soft and nontender. Bowel sounds normal in all 4 quadrants. No distention noted. No organomegaly noted. No visible injury noted. Back: No costovertebral angle tenderness. Full range of motion noted. Skin: Skin warm and dry. Normal skin color. Normal skin turgor. No rashes/lesions/lacerations noted. Extremities: No lower extremity edema. Extremities exhibit normal range of motion. Extremities nontender. Right hip pain noted after fall. Neuro: Oriented X 3. No motor deficit. No sensory deficit. Reflexes normal. Results - Labs: Previous blood work in June showed cholesterol levels increasing to 261 mg/dL. - Imaging: Suggestion for a right hip x-ray post-fall for additional evaluation. Plan - Continue Dupixent every two weeks for asthma management. - Prescribe combination supplement of CoQ10, fish oil, and [place]-3 to address rising cholesterol. - Obtain records from ankle surgery to determine antibiotic and anesthesia details for future reference. - Suggest right hip x-ray to rule out any fractures or significant injury post- fall. - Encourage scheduling of colonoscopy and mammogram as part of preventative health measures. - Recommend an ultrasound to follow up on thyroid nodules due to family history and previous biopsy. Patient was informed and verbally consented to the use of an ambient scribe for clinic note documentation during this visit. Discussion Notes During the visit, I discussed the status of the patient's ankle surgery, where she reported successful outcomes with the internal brace. We addressed her right hip pain post-fall and agreed an x-ray would be prudent for further assessment. I reviewed her asthma management, emphasizing the success of Dupixent in stabilizing her condition and maintaining control. For her cholesterol, I recommended continuing with the current supplements of fish oil, CoQ10, and [place]-3 to try and mitigate further increases without statins due to previous adverse reactions. We also discussed the importance of regular follow-ups with an geological engineer for thyroid nodules and addressed familial risks considering her medical history. Consent for necessary workups was unconditionally agreed upon by the patient, and the recommendation was made for appropriate follow-ups in six months. Patient Instructions - Continue current asthma medications as directed, including Dupixent injections. - Monitor and report any new persistence of hip pain; await results from x-ray. - Schedule a colonoscopy and mammogram at your earliest convenience. - Start the prescribed CoQ10, fish oil, and [place]-3 supplements as directed for cholesterol management. - Increase activity gradually as tolerated post-surgery, considering pain levels. - Follow-up in six months for blood work to re-evaluate cholesterol levels and overall health. - Notify us of any changes in your health, especially significant pain, unexpected weight loss, or changes in respiratory status.
[2024-09-24 09:56] VITALS: BP 138/88; PULSE 95; O2SAT 98; BMI 32.6
--- OUTSIDE RECORDS SUMMARY | 2024-09-24 10:28 | XMS_ITS | Patient Health Record ---
[facility] Address [address] [place] [address] Care Team Providers Care Purchasing Intern Name Role Phone Jeffry PHELAN, [place] Primary Care Provider Unavaila kristofer Khloe Adler Unavailable [phone] Allergies Allergen (clinical drug ingredient) Drug/Non Drug [...] Status Risk Notes Problem Acquired hallux valgus (38058934) Hallux valgus (acquired), left foot (M20.12) Active confirmed Problem Localized, primary osteoarthritis of the ankle and/or foot (400985179) Primary osteoarthrit is, left ankle 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) Active confirmed Problem Acquired hallux valgus (22527433) Hallux valgus (acquired), right foot (M20.11) Active confirmed Problem Acquired hammer toe of right foot (1194937367209884) Other hammer toe(s) (acquired), right foot (M20.41) Active confirmed Problem Acquired hammer toe of left foot (1337988966090840) Other hammer toe(s) (acquired), left foot (M20.42) Active confirmed Plan Of Treatment Pending Test Test Name Order Date *Liver Function Test (LFT) 09/07/2014 X ray : Foot, right 3V 02/27/2018 [id number] NAIL, 6 OR MORE 11/01/2013 [id number] NAIL, 6 OR MORE 03/03/2014 [id number] NAIL, 6 OR MORE 06/01/2014 [id number] NAIL, 6 OR MORE 09/07/2014 [id number] NAIL, 6 OR MORE 11/14/2014 [id number] TENDON SHEATH/LIGAMENT 1 08/12/2021 [id number] TENDON SHEATH/LIGAMENT 0 10/17/2022 [id number] TENDON SHEATH/LIGAMENT 0 11/25/2022 Insurance Providers Payer Name Payer Address Payer Phone Subscriber Number Group Number Insured Name Patient Relationship to Insured Coverage Start Date Coverage End Date [facility] [address] [place] [address] [id number] Iam Andrew Spouse - patient is the [...]
== END 2024-09-24 10:24 | disposition home or self-care (01) ==
PROVIDERS: PCP Internal Medicine; Visit Provider Physician Assistant Medical
DX: M25.551 Pain in right hip (principal); Z91.81 History of falling; Z86.39 Personal history of other endocrine, nutritional and metabolic disease; E04.2 Nontoxic multinodular goiter; E78.5 Hyperlipidemia, unspecified; J45.909 Unspecified asthma, uncomplicated; Z00.00 Encounter for general adult medical examination without abnormal findings; T78.40XA Allergy, unspecified, initial encounter

== ENCOUNTER 2024-09-24 09:53 | Outpatient (REF) | payer OTHER, SELFPAY ==
--- NOTE | ~2024-09-24 | XR_ITS ---
CLINICAL HISTORY: M25.551 - Pain in right hip 3 view, pelvis and right hip Comparison: None Findings: No acute fracture or dislocation. No significant arthritic change. The soft tissues are unremarkable. IMPRESSION: No acute findings. This document has been electronically signed by: Toby Guzman MD on 09/25/2024 05:37:57
== END 2024-09-24 09:54 | disposition home or self-care (01) ==
LOC: HO.XRAY 09:53
PROVIDERS: PCP Internal Medicine; Visit Provider Physician Assistant Medical
DX: Z00.00 Encounter for general adult medical examination without abnormal findings (principal); M25.551 Pain in right hip; Z91.81 History of falling; Z86.39 Personal history of other endocrine, nutritional and metabolic disease; E04.2 Nontoxic multinodular goiter; E78.5 Hyperlipidemia, unspecified; J45.909 Unspecified asthma, uncomplicated; T78.40XD Allergy, unspecified, subsequent encounter
CPT/HCPCS: 73502; 96127

== ENCOUNTER → 2024-09-24 10:34 | Outpatient (BNV) | payer OTHER, SELFPAY | PROVIDERS: PCP Internal Medicine; Visit Provider Specialist | DX: M25.551 Pain in right hip (principal); Z91.81 History of falling | CPT/HCPCS: 73502 ==

== ENCOUNTER 2024-10-13 13:15 | Outpatient (REF) | payer OTHER, SELFPAY ==
--- NOTE | ~2024-10-13 | US_ITS ---
EXAMINATION: US THYROID HISTORY: Z86.39 - Personal history of other endocrine, nutritional and metabolic ... TECHNIQUE: Real-time grayscale ultrasound imaging was performed and images were reviewed. COMPARISON: Comparison is made with the prior examination dated 06/27/2022. FINDINGS: SIZE: The right thyroid lobe measures 4.2 x 1.7 x 1.3 cm. The left thyroid lobe measures 4.3 x 1.5 x 1.4 cm. The isthmus measures 1 mm. FLOW: Flow to the gland is the left lobe appears hypervascular.. ECHOGENICITY: The echotexture of the gland is homogeneous. NODULES: Again seen is a solitary left thyroid nodule as described below: Nodule #: 1 Location: Interpolar region of the left thyroid lobe measuring 15 x 9 x 12 mm (previously 13 x 10 x 12 mm). Shape: Wider than tall (0 points) Margins: Smooth (0 points) Echotexture: Hypoechoic (2 points) Composition: Mostly solid (2 points) Calcifications: None (0 points) Total points: 4 TIRADS: TR4: Moderately suspicious. US/US thyroid IMPRESSION: Stable 15 x 9 x 12 mm left thyroid nodule. ACR TI-RADS Guidelines TR1: Benign, No follow-up or biopsy required TR2: Not Suspicious, No biopsy indicated TR3: Mildly Suspicious, FNA if >= 2.5 cm, Follow if >= 1.5 cm TR4: Moderately Suspicious, FNA if >= 1.5 cm, Follow if >= 1.0 cm TR5: Highly Suspicious, FNA if >= 1.0 cm, Follow if >= 0.5 cm Electronically signed by: Diego Napier MD 10/15/2024 01:14 PM [facility]
--- OUTSIDE RECORDS SUMMARY | 2024-10-13 15:49 | XMS_ITS | Patient Health Record ---
[facility] Organization [facility] Address [address] [place] [address] Care Team Providers Care Plant Chief Name Role Phone Jeffry PHELAN, [place] Primary Care Provider Unavaila kristofer Khloe Adler Unavailable [phone] Allergies Allergen (clinical drug ingredient) Drug/Non Drug [...] Status Risk Notes Problem Acquired hallux valgus (00448951) Hallux valgus (acquired), left foot (M20.12) Active confirmed Problem Localized, primary osteoarthritis of the ankle and/or foot (131953132) Primary osteoarthrit is, left ankle 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) Active confirmed Problem Acquired hallux valgus (42493651) Hallux valgus (acquired), right foot (M20.11) Active confirmed Problem Acquired hammer toe of right foot (2947292095393316) Other hammer toe(s) (acquired), right foot (M20.41) Active confirmed Problem Acquired hammer toe of left foot (1180817323448145) Other hammer toe(s) (acquired), left foot (M20.42) Active confirmed Plan Of Treatment Pending Test Test Name Order Date *Liver Function Test (LFT) 09/07/2014 X ray : Foot, right 3V 02/27/2018 [id number] NAIL, 6 OR MORE 11/01/2013 [id number] NAIL, 6 OR MORE 03/03/2014 [id number] NAIL, 6 OR MORE 06/01/2014 [id number] NAIL, 6 OR MORE 09/07/2014 [id number] NAIL, 6 OR MORE 11/14/2014 [id number] TENDON SHEATH/LIGAMENT 1 08/12/2021 [id number] TENDON SHEATH/LIGAMENT 0 10/17/2022 [id number] TENDON SHEATH/LIGAMENT 0 11/25/2022 Insurance Providers Payer Name Payer Address Payer Phone Subscriber Number Group Number Insured Name Patient Relationship to Insured Coverage Start Date Coverage End Date [facility] [address] [place] [address] [id number] Iam Andrew Spouse - patient is the [...]
== END 2024-10-13 13:16 | disposition home or self-care (01) ==
LOC: HO.US 13:15
PROVIDERS: PCP Internal Medicine; Visit Provider Physician Assistant Medical
DX: Z86.39 Personal history of other endocrine, nutritional and metabolic disease (principal)
CPT/HCPCS: 76536

== ENCOUNTER → 2024-10-13 13:18 | Outpatient (BNV) | payer OTHER, SELFPAY | PROVIDERS: PCP Internal Medicine; Visit Provider Radiology Diagnostic Radiology | DX: E04.1 Nontoxic single thyroid nodule (principal) | CPT/HCPCS: 76536 ==

== ENCOUNTER 2024-10-26 11:18 | Outpatient (REF) | payer OTHER, SELFPAY ==
[2024-10-26 11:55] LABS: MANUAL DIFF FLAG NO
[2024-10-26 12:09] LABS: Basophils Absolute Auto 0.1 X10*3/uL (0.0-0.2); Basophils Percent Auto 0.6 % (0-2); Eosinophils Absolute Auto 0.1 X10*3/uL (0.0-0.4); Eosinophils Percent Auto 1.6 % (0-4); Hematocrit 38.8 % (37.0-47.0); Imm Gran Abs Auto 0.03 X10*3/uL (0.00-0.03); Imm Gran Pct Auto 0.4 % (0.0-0.4); Lymphocytes Absolute Auto 2.4 X10*3/uL (1.2-4.9); Lymphocytes Percent Auto 29.1 % (20-40); Mean Corpuscular HGB Conc 33.5 g/dl (31.0-35.0); Mean Corpuscular Hemoglobin 28.6 pg (27.0-33.0); Mean Corpuscular Volume 85.5 fL (80.0-98.0); Mean Platelet Volume 10.4 fL (9.4-12.3); Monocytes Absolute Auto 0.6 X10*3/uL (0.1-1.2); Monocytes Percent Auto 6.7 % (2-11); Neutrophils Absolute Auto 5.2 x10*3/uL (2.0-8.3); Neutrophils Percent Auto 61.6 % (45-73); Platelet Count 293 X10*3/uL (160-400); Red Blood Count 4.54 X10*6/uL (4.20-5.50); Red Cell Distribution Width 13.6 % (11.0-16.0); White Blood Count 8.4 X10*3/uL (4.8-10.8)
[2024-10-26 12:16] LABS: Estimated Average Glucose 117 mg/dL; Hemoglobin A1C 132.0886 umol/L; Hemoglobin A1c % 5.7 % (<6.0)
[2024-10-26 12:46] LABS: Alanine Aminotransferase 20 U/L (0-31); Alkaline Phosphatase 96 U/L (39-117); Aspartate Amino Transferase 17 U/L (5-31); Bilirubin Direct 0.1 mg/dL (0.0-0.5); Bilirubin Total 0.3 mg/dL (0.0-1.0); Phosphorus 3.1 mg/dL (2.7-4.5); Total Protein 7.4 g/dL (6.5-8.0)
[2024-10-26 13:07] LABS: TSH reflex Free T4 0.88 uIU/mL (0.32-4.0); Vitamin D 25-OH Total 27.2 ng/mL (>30)
[2024-10-26 13:17] LABS: Folate > 20.0 ng/mL (> or = 4.0); Vitamin B12 411 pg/mL (200-900)
== END 2024-10-26 11:19 | disposition home or self-care (01) ==
LOC: HO.LAB 11:18
PROVIDERS: Absent Provider Student in an Organized Health Care Education/Training Program; PCP Internal Medicine; Visit Provider Physician Assistant Medical
DX: Z00.00 Encounter for general adult medical examination without abnormal findings (principal); Z13.1 Encounter for screening for diabetes mellitus; Z13.29 Encounter for screening for other suspected endocrine disorder; Z13.0 Encounter for screening for diseases of the blood and blood-forming organs and certain disorders involving the immune mechanism
CPT/HCPCS: 36415; 80076; 82306; 82550; 82607; 82746; 83036; 83735; 83970; 84100; 84443; 85025

== ENCOUNTER 2024-11-01 12:44 | Outpatient (AMB) | payer OTHER, SELFPAY ==
--- NOTE | 2024-11-01 12:46 | A.OFFVIS_ITS ---
Vital Signs 3 11/01/24 12:47 Height 5 ft 2 in Weight 180 lb 12.465 oz BMI 33.1 BP 130/74 Blood Pressure Location Rt brachial Position Sitting Pulse 99 Pulse Source Pulse Oximeter Pulse Oximetry (%) 100 Oxygen Delivery Method Room Air Intake Visit Reasons: Nontoxic multinodular goiter Intake Note: New patient present today for Nontoxic multinodular goiter. Accompanied by: Spouse Allergies albuterol [ALBUTEROL] Allergy (Unknown, Verified 11/01/24 12:46) ANAPHYLAXIS azithromycin [AZITHROMYCIN] Allergy (Unknown, Verified 11/01/24 12:46) ANGIOEDEMA, tingling tongue/throat bee venom protein (honey bee) Allergy (Unknown, Verified 11/01/24 12:46) Anaphylaxis guaifenesin [GUAIFENESIN] Allergy (Unknown, Verified 11/01/24 12:46) ANAPHYLACTIC, anaphylaxis iodine [IODINE] Allergy (Unknown, Verified 11/01/24 12:46) ANAPHYLAXIS, Slight throat swelling levofloxacin [Levaquin] Allergy (Unknown, Verified 11/01/24 12:46) rash tingling peanut [PEANUT] Allergy (Unknown, Verified 11/01/24 12:46) HIVES shellfish derived Allergy (Unknown, Verified 11/01/24 12:46) slight throat swelling Sulfa (Sulfonamide Antibiotics) [SULFA (SULFONAMIDE ANTIBIOTICS)] Allergy (Unknown, Verified 11/01/24 12:46) RASH atorvastatin Adverse Reaction (Intermediate, Verified 11/01/24 12:46) Sneezing Monistat Cream Allergy (Unknown, Uncoded 09/24/24 09:55) Rash Medication List - Last Reconciled 11/01/24 by Brooke Adams MD cholecalciferol (vitamin D3) 25 mcg PO DAILY dupilumab (Dupixent) mg subcut esomeprazole magnesium 20 mg PO DAILY estradiol 1 mg PO DAILY fluticasone furoate-vilanterol 100-25 mcg/dose (Breo Ellipta) 1 ea inhalation DAILY ipratropium bromide 17 mcg/actuation (Atrovent HFA) 0 mcg inhalation medroxyprogesterone 2.5 mg PO DAILY multivitamin 1 tab PO DAILY mosge-2-pbl-epa-fish oil-coQ10 [id number] mg (CoQmax Clarks) 1 cap PO DAILY zolpidem 5 mg PO BEDTIME PRN HPI Comments Details: 64-year-old female with PMHx IGM Deficiency who is seen in F/U for a thyroid nodule. Also noted to have elevated PTH level. Here with Andrew . She was previously seeing Dr. Dillon, last visit was in 2022. HPI Was initially diagnosed with multinodular thyroid many years ago and was following with Dr. Oh at [facility]. Underwent FNA biopsy of her left mid pole 1.3 cm thyroid nodule 09/19/2022, with benign cytology. Most recent thyroid 10/13/2024 ultrasound, I reviewed the images myself showed stable size of the left 1.5 cm mid lobe nodule. Normal TSH of 0.88 from 10/26/2024. No compressive symptoms. denies any symptoms of hyper or hypothyroidism. No family history of thyroid cancer. sister have hypothyroidism, maternal aunt hyperthyroidism. No personal history of head or neck radiation. Elevated PTH level While I was going through her chart also noted PTH from 10/26/2024 noted to be at 90. No prior PTH level done. No concurrent calcium levels done. Vitamin-D mildly low at 27.2. Likely due to secondary hyperparathyroidism in the setting of vitamin-D deficiency especially given no prior history of hypercalcemia, she has a normal calcium from June 2024. We will replace her vitamin-D to bump it up to between 40 and 60 and follow up PTH and calcium levels for resolution. 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 Physical exam General: sitting comfortably in no acute distress HEENT: normocephalic/atraumatic, Neck: supple, symmetrical, no thyromegaly , no dorsocervical or supraclavicular fat pads Cardiac: normal heart sounds Pulm: normal breath sounds B/L, no added breath sounds Abd: not distended, no tenderness Extremities: no edema, no signs of myxedema Laboratory Tests 06/30/24 10/26/24 08:43 11:53 Calcium 8.9 Phosphorus 3.1 Magnesium 2.0 25-OH Vitamin D Total 27.2 L TSH 0.88 PTH Intact 90.0 H Laboratory Tests 06/30/24 08:43 Creatinine 0.85 Estimated GFR > 60 EXAMINATION: US THYROID 10/13/24 HISTORY: Z86.39 - Personal history of other endocrine, nutritional and metabolic ... TECHNIQUE: Real-time grayscale ultrasound imaging was performed and images were reviewed. COMPARISON: Comparison is made with the prior examination dated 06/27/2022. FINDINGS: SIZE: The right thyroid lobe measures 4.2 x 1.7 x 1.3 cm. The left thyroid lobe measures 4.3 x 1.5 x 1.4 cm. The isthmus measures 1 mm. FLOW: Flow to the gland is the left lobe appears hypervascular.. ECHOGENICITY: The echotexture of the gland is homogeneous. NODULES: Again seen is a solitary left thyroid nodule as described below: Nodule #: 1 Location: Interpolar region of the left thyroid lobe measuring 15 x 9 x 12 mm (previously 13 x 10 x 12 mm). Shape: Wider than tall (0 points) Margins: Smooth (0 points) Echotexture: Hypoechoic (2 points) Composition: Mostly solid (2 points) Calcifications: None (0 points) Total points: 4 TIRADS: TR4: Moderately suspicious. US/US thyroid IMPRESSION: Stable 15 x 9 x 12 mm left thyroid nodule. ACR TI-RADS Guidelines TR1: Benign, No follow-up or biopsy required TR2: Not Suspicious, No biopsy indicated TR3: Mildly Suspicious, FNA if >= 2.5 cm, Follow if >= 1.5 cm TR4: Moderately Suspicious, FNA if >= 1.5 cm, Follow if >= 1.0 cm TR5: Highly Suspicious, FNA if >= 1.0 cm, Follow if >= 0.5 cm Thyroid US: 06/27/2022 Right Thyroid Lobe: 4.3 x 1.6 x 1.3 cm, volume 4.9 mL. Previously 4.5 x 1.5 x 1.1 cm, volume 3.9 mL. Parenchyma: The gland echotexture is homogeneous. Thyroid vascularity is normal. Left Thyroid Lobe: 4.1 x 1.6 x 1.3 cm, volume 4.6 mL. Previously 4.1 x 1.8 x 1.3 cm, volume 5.0 mL. Parenchyma: The gland echotexture is homogeneous. Thyroid vascularity is normal. Isthmus: 0.1 cm in maximum AP dimension. Previously 0.1 cm. Estimated total number of nodules greater than or equal to 1 cm: 1. Apple Packing Header nodules are described as follows: 1.? Location: Right lower pole. ?? ? Size: 0.4 x 0.3 x 0.3 cm, volume 0.02 mL. ?? ? Previously: Not documented. ?? ? Nodule characteristics: ?? ? Composition: Cystic(0). ?? ? ACR TI-RADS total points: 0 ?? ? ACR TI-RADS category: 1 ?? ? 2.? Location: Right lower pole. ?? ? Size: 0.5 x 0.3 x 0.4 cm, volume 0.03 mL. ?? ? Previously: 0.4 x 0.3 x 0.4 cm, volume 0.03 mL. ?? ? Nodule characteristics: ?? ? Composition: Cystic(0). ?? ? ACR TI-RADS total points: 0 ?? ? ACR TI-RADS category: 1 ? Significant change in size (>/= 20% in 2 dimensions and minimal increase of 2 mm or 50% or greater increase in volume): ?? ? Change in features: ?? ? Change in ACR TI-RADS risk category: 3.? Location: Left mid pole. ?? ? Size: 1.3 x 1.0 x 1.2 cm, volume 0.80 mL. ?? ? Previously: 1.4 x 0.8 x 1.0 cm, volume 0.59 mL. ?? ? Nodule characteristics: ?? ? Composition: Solid/almost completely solid (2). ?? ? Echogenicity: Very hypoechoic (3). ?? ? Shape: Not taller than wide (0). ?? ? Margins: Smooth (0). ?? ? Echogenic Foci: Punctate echogenic foci (3). ?? ? ACR TI-RADS total points: 8 ?? ? ACR TI-RADS category: 5 ? Significant change in size (>/= 20% in 2 dimensions and minimal increase of 2 mm or 50% or greater increase in volume): ?? ? Change in features: ?? ? Change in ACR TI-RADS risk category: NODES: No lymphadenopathy is seen in the tissue surrounding the thyroid gland. [facility] Medical History (Updated 11/01/24 @ 13:21 by Brooke Adams MD) Elevated parathyroid hormone History of mammogram (~2023) Allergies Hx of thyroid nodule History of recent fall Annual physical exam Right hip pain Multinodular thyroid Asthma Surgical History (Updated 11/01/24 @ 12:50 by Klaudia Be CMA) History of surgery on right wrist History of ankle surgery History of ear surgery Family History Father Myocardial infarction Diabetes Mother High cholesterol Diabetes Hypertension Breast cancer DDD (degenerative disc disease) Maternal Grandfather Mary's disease Thyroid disease Sister Overactive thyroid gland Maternal Aunt Thyroid disease Social History Housing: House Alcohol intake: current Alcohol intake frequency: holidays/special occasions only Patient Tobacco Use Status: Never used Tobacco Tobacco use type: Cigarette e-Cigarette/Vaping Use: Never Used Second Hand Smoke Exposure: No service: No Current occupational status: unemployed Cognitive needs: No Hearing needs: No Vision needs: No Physical Exam Vital Signs: Last Vital Signs Pulse 99 11/01/24 12:47 BP 130/74 11/01/24 12:47 Pulse Ox 100 11/01/24 12:47 Oxygen Delivery Method Room Air 11/01/24 12:47 BMI result Body Mass Index 33.1 Assessment & Plan Assessment & Plan (1) Thyroid nodule: Code(s): E04.1 - Nontoxic single thyroid nodule Category: Medical Plan: 64-year-old female with no family history of thyroid cancer, with no personal history of head or neck radiation, who is coming in today for follow up of left- sided thyroid nodule. She has had a history of thyroid nodule for many years, FNA biopsy of the left midpole 1.3 cm nodule in September 2022 was benign. Most recent thyroid ultrasound, I reviewed the images myself from October 2024 showed stable size of the left 1.5 cm mid lobe nodule. She does not have any compressive symptoms. Normal TSH of 0.88 from October 2024. Plan: -ultrasound of the thyroid ordered in 1 year in October 2025 (2) Elevated parathyroid hormone: Code(s): R79.89 - Other specified abnormal findings of blood chemistry Category: Medical Plan: Patient's PTH from 10/26/2024 noted to be at 90. No prior PTH level done. No concurrent calcium levels done. Vitamin-D mildly low at 27.2. Likely due to secondary hyperparathyroidism in the setting of vitamin-D deficiency especially given no prior history of hypercalcemia, she has a normal calcium from June 2024. We will replace her vitamin-D to bump it up to between 40 and 60 and follow up PTH and calcium levels for resolution. She has not been taking any vitamin-D supplementation. Has adequate intake of calcium through diet. No history of kidney stones, no family history of hypercalcemia. No history of fragility fracture, the wrist fracture she had 12 years ago sounded like a hard fall. DEXA scan from 2020 showed osteopenia of the lumbar spine, normal bone density of the hip which is also reassuring. Plan: -start vitamin-D 1000 units daily -ordered PTH, calcium, ionized calcium, creatinine, phosphorus, vitamin-D level to be done in 3 months -follow up in 3 months to discuss results Plan I spent 30 minutes in reviewing the record, seeing the patient and documenting in the medical record. Orders: Orders 2 US thyroid 1 Year E04.1 - Nontoxic single thyroid nodule Calcium, Ionized 3 Months R7 - Other specified abnormal findings of blood chemistry Parathyroid Hormone Intact 3 Months R7.89 - Other specified abnormal findings of blood chemistry Vitamin D 25-OH Total 3 Months R7.89 - Other specified abnormal findings of blood chemistry Calcium 3 Months R7.89 - Other specified abnormal findings of blood chemistry Albumin Level 3 Months R7.89 - Other specified abnormal findings of blood chemistry Phosphorus 3 Months R7.89 - Other specified abnormal findings of blood chemistry Creatinine 3 Months R7.89 - Other specified abnormal findings of blood chemistry Medications: New 2 cholecalciferol (vitamin D3) 25 mcg PO DAILY 3 months 90 caps 1RF Coding Level of Care Code Est Pt Level 4 (58154) Diagnoses Thyroid nodule E04.1 Elevated parathyroid hormone R79.89 Time Spent (min) 30
[2024-11-01 12:47] VITALS: BP 130/74; PULSE 99; O2SAT 100; BMI 33.1
== END 2024-11-01 13:25 | disposition home or self-care (01) ==
LOC: HO.ENCR 12:45
PROVIDERS: PCP Internal Medicine; Visit Provider Student in an Organized Health Care Education/Training Program
DX: E04.1 Nontoxic single thyroid nodule (principal); R79.89 Other specified abnormal findings of blood chemistry
CPT/HCPCS: 99214

== ENCOUNTER → 2024-11-01 12:44 | Outpatient (BNVA) | payer OTHER, SELFPAY | PROVIDERS: PCP Internal Medicine; Visit Provider Student in an Organized Health Care Education/Training Program ==

== ENCOUNTER 2025-01-31 08:13 | Outpatient (REF) | payer OTHER, SELFPAY ==
--- OUTSIDE RECORDS SUMMARY | 2025-01-31 08:20 | XMS_ITS | Patient Health Record ---
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 Role Phone Lion Teran MD Primary Care Provider Diego Sapp Unavailable [phone] Allergies Allergen (clinical drug ingredient) Drug/Non Drug Allergy documented on EMR Reaction Allergy Type Onset Date Status Levaquin Unknown Drug Allergy Active Iodine Unknown Drug Allergy Active Guaifenesin Unknown Drug Allergy Activ e albuterol Albuterol Unknown Drug Allergy Active azithromycin Z-pack (uncoded) Unknown Allergy Active Sulfa Unknown Drug Allergy Active Reason For Referral No Information Medications Medication SIG (Take, Route, Frequency, Duration) Notes Start Date End Date Status Motrin IB 200 MG 1 tablet as needed Orally every 6 hrs Active MoviPrep 100 GM as directed Orally a s directed for 1 dose 05/17/2014 Active Atrovent HFA 17 MCG/ACT 2 puffs Inhalation Four times a day Active Advair Diskus 250-50 MCG/DOSE 1 puff Inhalation Twice a day Active Vicodin 5-300 MG 1 tablet as needed Orally every 6 hrs For back pain--uses rarely Active ZyrTEC Allergy 10 MG 1 tablet Orally Onc e a day Active Problems Problem Type SNOMED Code ICD Code Onset Dates Problem Status W/U Status Risk Notes Problem Pre-surgery evaluation (257054683) Other specified pre-operative examination (V72.83) Active confirmed Problem Colon cancer screening (816017731) Colon cancer screening (V76.51) Active confirmed Problem NSAID long-term use (V58.64) Active confirmed Plan Of Treatment Future Test Test Name Order Date COLONOSCOPY 05/17/2014 Insurance Providers Payer Name Payer Address Payer Phone Subscriber Number Group Number Insured Name Patient Relationship to Insured Coverage Start Date Coverage End Date [facility] [address] [place] [phone] [id number] AN ODOM Self - patient is the insured Medical (General) History Medical History History ICD Code Asthma Denies [place],DM,CVA,renal disease Thyroid nodules/goiter Surgical History Surgery Date(Month/Year) cleft lip repair [id number] cleft palate repair [id number] left ear surgery X 4 mastoidectomy 1992 foraminotomy-disc surgery C-5-Dr. Olivier 01/2014 ankle surgery-left 11/2009
[2025-01-31 10:10] LABS: Albumin Level 4.3 g/dL (3.5-5.0); Estimated Glomerular Filt Rate > 60; Phosphorus 2.8 mg/dL (2.7-4.5)
[2025-01-31 10:15] LABS: Vitamin D 25-OH Total 39.1 ng/mL (>30)
[2025-01-31 10:22] LABS: Parathyroid Hormone Intact 66.9 pg/mL (8.7-77.1)
== END 2025-01-31 08:14 | disposition home or self-care (01) ==
LOC: HO.LAB 08:13
PROVIDERS: Absent Provider Student in an Organized Health Care Education/Training Program; PCP Internal Medicine; Visit Provider Physician Assistant Medical
DX: R79.89 Other specified abnormal findings of blood chemistry (principal)
CPT/HCPCS: 36415; 82040; 82306; 82310; 82330; 82565; 83970; 84100

== ENCOUNTER 2025-03-01 15:39 | Outpatient (AMB) | payer OTHER, SELFPAY ==
--- NOTE | 2025-03-01 15:41 | MHC.OFFVIS ---
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 Monotype Mechanic Required: No Accompanied by: Self / Same As Patient Allergies albuterol (ALBUTEROL) Allergy (Unknown, Verified 03/01/25 15:42) ANAPHYLAXIS azithromycin (AZITHROMYCIN) Allergy (Unknown, Verified 03/01/25 15:42) ANGIOEDEMA, tingling tongue/throat bee venom protein (honey bee) Allergy (Unknown, Verified 03/01/25 15:42) Anaphylaxis guaifenesin (GUAIFENESIN) Allergy (Unknown, Verified 03/01/25 15:42) ANAPHYLACTIC, anaphylaxis iodine (IODINE) Allergy (Unknown, Verified 03/01/25 15:42) ANAPHYLAXIS, Slight throat swelling levofloxacin (Levaquin) Allergy (Unknown, Verified 03/01/25 15:42) rash tingling peanut (PEANUT) Allergy (Unknown, Verified 03/01/25 15:42) HIVES shellfish derived Allergy (Unknown, Verified 03/01/25 15:42) slight throat swelling Sulfa (Sulfonamide Antibiotics) (SULFA (SULFONAMIDE ANTIBIOTICS)) Allergy (Unknown, Verified 03/01/25 15:42) RASH atorvastatin Adverse Reaction (Intermediate, Verified 03/01/25 15:42) Sneezing Monistat Cream Allergy (Unknown, Uncoded 03/01/25 15:42) Rash HPI Comments Details: 64-year-old female with PMHx IGM Deficiency who is seen in F/U for a thyroid nodule. Also noted to have elevated PTH level. Here with Andrew . She was previously seeing Dr. Dillon, last visit was in 2022. HPI Was initially diagnosed with multinodular thyroid many years ago and was following with Dr. Oh at [facility]. Underwent FNA biopsy of her left mid pole 1.3 cm thyroid nodule 09/19/2022, with benign cytology. Most recent thyroid 10/13/2024 ultrasound, I reviewed the images myself showed stable size of the left 1.5 cm mid lobe nodule. Normal TSH of 0.88 from 10/26/2024. No compressive symptoms. denies any symptoms of hyper or hypothyroidism. No family history of thyroid cancer. sister have hypothyroidism, maternal aunt hyperthyroidism. No personal history of head or neck radiation. Elevated PTH level While I was going through her chart also noted PTH from 10/26/2024 noted to be at 90. No prior PTH level done. No concurrent calcium levels done. Vitamin-D mildly low at 27.2. Likely due to secondary hyperparathyroidism in the setting of vitamin-D deficiency especially given no prior history of hypercalcemia, she has a normal calcium from June 2024. We will replace her vitamin-D to bump it up to between 40 and 60 and follow up PTH and calcium levels for resolution. 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 Physical exam General: sitting comfortably in no acute distress HEENT: normocephalic/atraumatic, Neck: supple, symmetrical, no thyromegaly , no dorsocervical or supraclavicular fat pads Cardiac: normal heart sounds Pulm: normal breath sounds B/L, no added breath sounds Abd: not distended, no tenderness Extremities: no edema, no signs of myxedema Laboratory Tests 06/30/24 10/26/24 08:43 11:53 Calcium 8.9 Phosphorus 3.1 Magnesium 2.0 25-OH Vitamin D Total 27.2 L TSH 0.88 PTH Intact 90.0 H Laboratory Tests 06/30/24 08:43 Creatinine 0.85 Estimated GFR > 60 Laboratory Tests 01/31/25 08:38 Creatinine 0.90 Estimated GFR > 60 Calcium 9.0 Ionized Calcium 5.0 Phosphorus 2.8 Albumin 4.3 25-OH Vitamin D Total 39.1 PTH Intact 66.9 EXAMINATION: US THYROID 10/13/24 HISTORY: Z86.39 - Personal history of other endocrine, nutritional and metabolic ... TECHNIQUE: Real-time grayscale ultrasound imaging was performed and images were reviewed. COMPARISON: Comparison is made with the prior examination dated 06/27/2022. FINDINGS: SIZE: The right thyroid lobe measures 4.2 x 1.7 x 1.3 cm. The left thyroid lobe measures 4.3 x 1.5 x 1.4 cm. The isthmus measures 1 mm. FLOW: Flow to the gland is the left lobe appears hypervascular.. ECHOGENICITY: The echotexture of the gland is homogeneous. NODULES: Again seen is a solitary left thyroid nodule as described below: Nodule #: 1 Location: Interpolar region of the left thyroid lobe measuring 15 x 9 x 12 mm (previously 13 x 10 x 12 mm). Shape: Wider than tall (0 points) Margins: Smooth (0 points) Echotexture: Hypoechoic (2 points) Composition: Mostly solid (2 points) Calcifications: None (0 points) Total points: 4 TIRADS: TR4: Moderately suspicious. Thyroid US: 06/27/2022 Right Thyroid Lobe: 4.3 x 1.6 x 1.3 cm, volume 4.9 mL. Previously 4.5 x 1.5 x 1.1 cm, volume 3.9 mL. Parenchyma: The gland echotexture is homogeneous. Thyroid vascularity is normal. Left Thyroid Lobe: 4.1 x 1.6 x 1.3 cm, volume 4.6 mL. Previously 4.1 x 1.8 x 1.3 cm, volume 5.0 mL. Parenchyma: The gland echotexture is homogeneous. Thyroid vascularity is normal. Isthmus: 0.1 cm in maximum AP dimension. Previously 0.1 cm. Estimated total number of nodules greater than or equal to 1 cm: 1. Engineer Fishing Vessel nodules are described as follows: 1.? Location: Right lower pole. ?? ? Size: 0.4 x 0.3 x 0.3 cm, volume 0.02 mL. ?? ? Previously: Not documented. ?? ? Nodule characteristics: ?? ? Composition: Cystic(0). ?? ? ACR TI-RADS total points: 0 ?? ? ACR TI-RADS category: 1 ?? ? 2.? Location: Right lower pole. ?? ? Size: 0.5 x 0.3 x 0.4 cm, volume 0.03 mL. ?? ? Previously: 0.4 x 0.3 x 0.4 cm, volume 0.03 mL. ?? ? Nodule characteristics: ?? ? Composition: Cystic(0). ?? ? ACR TI-RADS total points: 0 ?? ? ACR TI-RADS category: 1 ? Significant change in size (>/= 20% in 2 dimensions and minimal increase of 2 mm or 50% or greater increase in volume): ?? ? Change in features: ?? ? Change in ACR TI-RADS risk category: 3.? Location: Left mid pole. ?? ? Size: 1.3 x 1.0 x 1.2 cm, volume 0.80 mL. ?? ? Previously: 1.4 x 0.8 x 1.0 cm, volume 0.59 mL. ?? ? Nodule characteristics: ?? ? Composition: Solid/almost completely solid (2). ?? ? Echogenicity: Very hypoechoic (3). ?? ? Shape: Not taller than wide (0). ?? ? Margins: Smooth (0). ?? ? Echogenic Foci: Punctate echogenic foci (3). ?? ? ACR TI-RADS total points: 8 ?? ? ACR TI-RADS category: 5 ? Significant change in size (>/= 20% in 2 dimensions and minimal increase of 2 mm or 50% or greater increase in volume): ?? ? Change in features: ?? ? Change in ACR TI-RADS risk category: NODES: No lymphadenopathy is seen in the tissue surrounding the thyroid gland. [facility] Medical History Elevated parathyroid hormone History of mammogram (~2023) Allergies Hx of thyroid nodule History of recent fall Annual physical exam Right hip pain Multinodular thyroid Asthma Surgical History History of surgery on right wrist History of ankle surgery History of ear surgery Family History Father Myocardial infarction Diabetes Mother High cholesterol Diabetes Hypertension Breast cancer DDD (degenerative disc disease) Maternal Grandfather Mary's disease Thyroid disease Sister Overactive thyroid gland Maternal Aunt Thyroid disease Social History Housing: House Alcohol intake: current Alcohol intake frequency: holidays/special occasions only Patient Tobacco Use Status: Never used Tobacco Tobacco use type: Cigarette e-Cigarette/Vaping Use: Never Used Second Hand Smoke Exposure: No service: No Current occupational status: unemployed Cognitive needs: No Hearing needs: No Vision needs: No Physical Exam Vital Signs: Last Vital Signs Pulse 60 03/01/25 15:50 BP 118/72 03/01/25 15:50 Pulse Ox 96 03/01/25 15:50 Oxygen Delivery Method Room Air 03/01/25 15:50 BMI result Body Mass Index 33.1 Assessment & Plan Assessment & Plan (1) Thyroid nodule: Code(s): E04.1 - Nontoxic single thyroid nodule Category: Medical Plan: 64-year-old female with no family history of thyroid cancer, with no personal history of head or neck radiation, who is coming in today for follow up of left-sided thyroid nodule. She has had a history of thyroid nodule for many years, FNA biopsy of the left midpole 1.3 cm nodule in September 2022 was benign. Most recent thyroid ultrasound, I reviewed the images myself from October 2024 showed stable size of the left 1.5 cm mid lobe nodule. She does not have any compressive symptoms. Normal TSH of 0.88 from October 2024. Plan: -ultrasound of the thyroid ordered in 1 year in October 2025 -thyroid blood work to be done in October 2025 -follow up in November 2025 (2) Elevated parathyroid hormone: Code(s): R79.89 - Other specified abnormal findings of blood chemistry Category: Medical Plan: Patient's PTH from 10/26/2024 noted to be at 90. No prior PTH level done. No concurrent calcium levels done. Vitamin-D mildly low at 27.2. Likely due to secondary hyperparathyroidism in the setting of vitamin-D deficiency especially given no prior history of hypercalcemia, she has a normal calcium from June 2024. We will replace her vitamin-D to bump it up to between 40 and 60 and follow up PTH and calcium levels for resolution. She has not been taking any vitamin-D supplementation. Has adequate intake of calcium through diet. No history of kidney stones, no family history of hypercalcemia. No history of fragility fracture, the wrist fracture she had 12 years ago sounded like a hard fall. DEXA scan from 2020 showed osteopenia of the lumbar spine, normal bone density of the hip which is also reassuring. Now with vitamin-D supplementation, PTH levels have normalized. Plan: -continue vitamin-D 1000 units daily , in the summer months if you are getting a lot of sun she can reduce it to every other day Plan See above Orders: Orders TSH reflex Free T4 10/24/25 E04.2 - Nontoxic multinodular goiter Patient Instructions: Do ultrasound of the thyroid a few weeks prior to your follow up with me in November 2025, someone should call you to schedule this, please make sure this is done prior to your next follow up appointment Do thyroid blood work a few days prior to your follow up in November 2025 Follow up in November 2025 Coding Level of Care Code Est Pt Level 3 (32791) Diagnoses Thyroid nodule E04.1 Elevated parathyroid hormone R79.89
[2025-03-01 15:50] VITALS: BP 118/72; PULSE 60; O2SAT 96; BMI 33.1
--- OUTSIDE RECORDS SUMMARY | 2025-03-01 16:27 | XMS_ITS | Clinical Summary ---
Author Organization [facility] Address [address] [place] [id number] Phone Care Team Providers Care Copy Supervisor Name Role Phone Lion Teran MD Primary Care Provider [phone] Allergies Active Allergy Reactions Criticality Noted Date Comments Albuterol 04/01/2024 Other Reaction(s): rash difficulty breathing Azithromycin 04/01/2024 Other Reaction(s): tongue and lip swelling Guaifenesin Anaphylaxis,Hives High 04/01/2024 Iodine 04/01/2024 Other Reaction(s): lips and tongue swell Levofloxacin Rash Low 04/01/2024 Peanut Anaphylaxis High 04/01/2024 Shellfish Containing Products Anaphylaxis High 04/01/2024 Sulfa (Sulfonamide Antibiotics) Anaphylaxis High 04/01/2024 Venom-Honey Bee Anaphylaxis High 04/01/2024 Medications estradioL (ESTRACE) 1 MG tablet Take 1 tablet by mouth every morning. Active BREO ELLIPTA 100-25 mcg/dose inhaler Inhale 1 puff into the lungs daily. Active zolpidem (AMBIEN) 5 MG tablet TAKE 1 TABLET ORALLY BEDTIME NEEDED FOR INSOMNIA Active HYDROcodone-jace taminophen (NORCO) 5-325 mg per tablet TAKE 1 TABLET BY MOUTH EVERY 4 TO 6 HOURS FOR 3 DAYS Active aspirin 325 MG EC tablet Take 1 tablet by mouth every morning. Active cetirizine (ZYRTEC) 10 mg capsule ZyrTEC Active dupilumab (DUPIXENT SYRINGE) 100 mg/0.67 mL subcutaneous syringe Dupixent Active medroxyprogeste dennise ac, micro (MEDROXYPROGEST ERONE ACETATE MICRO, BULK,) 100 % Powd medroxyPROGESTERone Acetate Active fluticasone propion-salmete roL (ADVAIR DISKUS) 100-50 mcg/dose DISKUS Advair Diskus Active EPINEPHrine (EPIPEN) 0.3 mg/0.3 mL auto-injector EpiPen Active ipratropium (ATROVENT HFA) 17 mcg/actuation inhaler Inhale into the lungs. 09/10 024 Active Active Problems Problem Noted Date Diagnosed Date Allergic rhinitis 04/01/2024 Asthma, severe persistent 04/01/2024 Thyroid nodule 04/01/2024 IgM deficiency 04/01/2024 History of COVID-19 04/01/2024 Multilevel degenerative disc disease 04/01/2024 Gastroesophageal reflux disease 04/01/2024 Immunizations Immunization Administration Dates Next Due COVID-19 (Pre-06/02) Moderna Vaccine, mRNA, PF 10/06/2020 Influenza Quadrivalent MDCK Preservative Free IM 05/23/2023,06/03/2022 Influenza Quadrivalent Preservative Free IM 12/2020,05/29/2018 Influenza Quadrivalent w/ Preservative IM 2018,06/19/2017,07/19/2016 Influenza Trivalent w/ Preservative IM 5 Pneumococcal conjugate PCV20 01/25/2023 Pneumococcal polysaccharide PPSV23 11/22/2021, RSV Vaccine (monovalent, adjuvanted) 06/07/2023 Tdap 06/07/2023 Zoster recombinant 07/29/2020,04/09/2020 Social History Tobacco Use Types Packs/Day Years Used Date Smoking Tobacco: Never Smokeless Tobacco: Never Tobacco Cessation:Counseling Given: Not Answered Education Answer Date Recorded Are you interested in more education? Not on samantha e 12/06/2022 Are you concerned about learning? Not on file 12/06/2022 No 12/06/2022 No 12/06/2022 Digital Access Answer Date Recorded No 01/06/2023 No 01/06/2023 Reliable internet access at home? Not on file 01/06/2023 Device with a working camera? Not on file Comments Unknown Sex and Gender Information Value Date Recorded Sex Assigned at Not on file Legal Sex Female 4:25 PM EDT Gender Identity Not on file Sexual Orientation Not on file Last Filed Vital Signs Vital Sign Reading Time Taken Comments Blood Pressure 142/92 09/07/2024 10:39 AM EST Pulse 93 09/07/2024 10:39 AM EST Temperature 36.4 C (97.6 F) 09/07/2024 10:39 AM EST Respiratory Rate 17 09/07/2024 10:39 AM EST Oxygen Saturation 96% 09/07/2024 10:39 AM EST Inhaled Oxygen Concentration - - Weight 77.6 kg (171 lb) 09/07/2024 10:39 AM EST Height 167.6 cm (5' 6 ) 09/07/2024 10:39 AM EST Body Mass Index 27.6 09/07/2024 10:39 AM EST Plan of Treatment Health Maintenance Due Date Last Done Comments LIPID PANEL 1961 DEPRESSION SCREENING 1973 HEPATITIS C SCREENING 1979 HIV ONE-TIME SCREENING (18-65 YEARS) 1979 PAP SMEAR 1982 SCREENING FOR DIABETES 02/14/1996 MAMMOGRAM 2001 COLOGUARD 2006 COLONOSCOPY 2006 COLORECTAL CANCER SCREENING 2006 FIT TEST 2006 FOBT 2006 SIGMOIDOSCOPY 2006 VIRTUAL COLONOSCOPY 2006 COVID-19 VACCINE ( season) 2024 04/28/2023, 05/13/2022, 11/22/2021, Additional history exists Adult Td,Tdap Booster 06/07/2033 06/07/2023 ZOSTER VACCINES Completed 07/29/2020, 04/09/2020 RSV VACCINE Completed 06/07/2023 PNEUMOCOCCAL VACCINES (50+ years) Completed 07/20/2024, 01/25/2023, 11/22/2021, Additional history exists SMOKING STATUS SCREENING (Once After 26 Yrs) Completed 09/07/2024 HEPATITIS A VACCINES Aged Out No long er eligible based on patient's age to complete this topic HIB VACCINES Aged Out No longer eligi ble based on patient's age to complete this topic MENINGOCOCCAL VACCINES (ACWY) Aged Out No longer eligible based on patient's age to complete this topic MENINGOCOCCAL VACCINES (B) Aged Out N o longer eligible based on patient's age to complete this topic Medical Devices Not on file [place] [address] [place] [address] [place] [address] [place] [address] [place] [address] [employer] [employer] [facility] [place] [address] Care Teams Copy Supervisor Relationship Specialty Start Date End Date Lion Teran MD [address] [place] [address] [place] [address] PCP - General Internal Medicine 03/15/20 Additional Source Comments The information contained in this document represents components of the legal health record. It is not the complete legal health record.[facility]
--- OUTSIDE RECORDS SUMMARY | 2025-03-01 16:27 | XMS_ITS | Patient Health Record ---
Author Organization [facility] Address [address] [place] [address] Care Team Providers Care Java Sql Developer Name Role Phone Lion Teran MD Primary Care Provider Diego Sapp Unavailable [phone] Allergies Allergen (clinical drug ingredient) Drug/Non Drug Allergy documented on EMR Reaction Allergy Type Onset Date Status Iodine Unknown Drug Allergy Active Guaifenesin Unknown Drug Allergy Activ e albuterol Albuterol Unknown Drug Allergy Active azithromycin Z-pack (uncoded) Unknown Allergy Active Sulfa Unknown Drug Allergy Active Levaquin Unknown Drug Allergy Active Reason For Referral [...] W/U Status Risk Notes Problem Pre-surgery evaluation ([id number]) Other specified pre-operative examination (V72.83) Active confirmed Problem Colon cancer screening (179882492) Colon cancer screening (V76.51) Active confirmed Problem NSAID long-term use (V58.64) Active confirmed Plan Of Treatment Future Test Test Name Order Date COLONOSCOPY 05/17/2014 Insurance Providers Payer Name Payer Address Payer Phone Subscriber Number Group Number Insured Name Patient Relationship to Insured Coverage Start Date Coverage End Date Ed [facility] [address] [place] [phone] [id number] AN ODOM Self - patient is the insured Medical (General) History Medical History History ICD Code Asthma Denies [place],DM,CVA,renal disease Thyroid nodules/goiter Surgical History Surgery Date(Month/Year) cleft lip repair [id number] cleft palate repair [id number] left ear surgery X 4 mastoidectomy 1992 foraminotomy-disc surgery C-5-Dr. Olivier 01/2014 ankle surgery-left 11/2009
--- OUTSIDE RECORDS SUMMARY | 2025-03-01 16:28 | XMS_ITS | Data Portability ---
Author Organization [place] - [facility] Formerly [facility], Allergy Address [address] [address] Care Team Providers Care Clinical Applications Manager Name Role Phone SERGO MAR Primary Care Provider Assessment Encounter Date Assessment Date Assessment LastModified by Organization Details LastModified Time 06/14/2024 06/14/2024 64-year-old female with allergic rhinitis and asthma on Dupixent after failing Fasenra presents for evaluation of chronic sinusitis. She has an IgM deficiency and elevated eosinophils. Nasal endoscopy demonstrated normal findings without polyps or drainage. Otologic exam with chronic right middle ear effusion. She is scheduled for sinus CT tomorrow at [facility] and was instructed to bring physical disc of images to our office for review. 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 Recommend continuing Breo, Spirivia, Dupixent, Zyrtec, Flonase, and nasal saline spray. She will be seeing her anesthesia director later this week. Suggest considering ANCA and antibody titers if not already performed. Will follow up with treatment recommendations after reviewing sinus CT images. She has a history of repaired cleft lip and palate and left canal wall down mastoidectomy, and will follow up with Dr. Lei for routine mastoid debridement in November. Seen with Kyara Hinojosa PA-C. Debora took independent history, performed the examination and endoscopy while formulating the plan mahamed Not available 06/14/2024 16:13:15 Plan of Treatment Reminders Order Date Submit Date Provider Last Modified By Organization Details Last Modified Time Details Appointments Establish ed 10 2025 09:00A M PAULA LEI MD Not available Not available Not available Lab None recorded. Referral None recorded. Procedures None recorded. Surgeries None recorded. Imaging None recorded. Medication Orders None recorded. Patient TargetsNo targets recorded. Patient InstructionsNo instructions recorded. Reason for Referral None Reported. Problems Name Problem SNOMED Code Status Onset Date Resolution Date Notes Provider Name and Address Organization Details Recorded Time Unilatera l mixed conductiv e and sensorine ural hearing loss with unrestric mario hearing on the contralat eral side Active 2014 Mixed HL, unilatera l; Note: Date Diagnosed : 01/25/2015 4:01 PM (389.21) Not Available [facility] 4 02:36:37 Sensorine ural hearing loss 01160975 Active 2015 Sensorine ural hearing loss, unilatera l, right ear, with unrestric mario hearing on the contralat eral side; Note: Date Diagnosed : 01/30/2016 3:54 PM (H90.41) Not Available [facility] 4 02:36:41 Benign paroxysma l positiona l vertigo 426303360 Active 2015 Benign paroxysma l vertigo, left ear; Note: Changed from H81.10 to H81.12 (11/13/2023 10:35 AM) , Date Diagnosed : 01/30/2016 3:53 PM (H81.10) Not Available [facility] 4 02:36:31 Postmasto idectomy complicat ion 68794276 Active 2015 Other disorders following mastoidec wang, left ear; Note: Date Diagnosed : 01/30/2016 3:42 PM (H95.192) Not Available [facility] 4 02:36:31 Deviated nasal septum 261682855 Active 2016 Deviated nasal septum; Note: Date Diagnosed : 7 3:22 PM (J34.2) Not Available [facility] 4 02:36:35 Nasal congestio n 68874592 Active 2016 Nasal congestio n; Note: Date Diagnosed : 7 3:22 PM (R09.81) Not Available [facility] 4 02:36:34 History of repair of cleft lip 270555556 Active 2016 Personal history of (correcte d) cleft lip and palate; Note: Date Diagnosed : 7 4:32 PM (Z87.730) Not Available [facility] 4 02:36:42 History of repair of congenita l cleft palate 95791992813 9107 Active 2016 Personal history of (correcte d) cleft lip and palate; Note: Date Diagnosed : 7 4:32 PM (Z87.730) Not Available [facility] 4 02:36:42 Acute upper respirato ry infection 74473530 Active 2017 Acute upper respirato ry infection , unspecifi ed; Note: Date Diagnosed : 05/12/2018 5:05 PM (J06.9) Not Available [facility] 4 02:36:33 Granulati ons of postmasto idectomy cavity Active 2018 Granulati ons of postmasto idectomy cavity; Note: Date Diagnosed : 04/30/2019 1:19 PM (383.33) Recurre nt debris collectio n within post mastoidec wang cavity; Note: Date Diagnosed : 01/25/2015 4:49 PM (383.33) ; Start Date : 5 Not Available [facility] 4 02:36:33 Conductiv e hearing loss of right ear 9369063791 Active 2018 Conductiv e hearing loss, unilatera l, right ear with restricte d hearing on the contralat eral side; Note: Date Diagnosed : 9 4:35 PM (H90.A11) Not Available [facility] 4 02:36:33 Mixed conductiv e and sensorine ural hearing loss of left ear 85883919156 107 Active 2018 Mixed conductiv e and sensorine ural hearing loss, unilatera l, left ear, with unrestric mario hearing on the contralat eral side; Note: Date Diagnosed : 01/30/2016 3:54 PM (H90.72) ; Start Date : 6 Mixed conductiv e and sensorine ural hearing loss, unilatera l, left ear with restricte d hearing on the contralat eral side; Note: Date Diagnosed : 9 4:35 PM (H90.A32) Not Available [facility] 4 02:36:34 Allergic rhinitis 45401285 Active 2018 Other allergic rhinitis; Note: Date Diagnosed : 9 3:34 PM (J30.89) Not Available [facility] 4 02:36:31 Disorder of right Eustachia n tube 98715540867 21166 Active 2018 Other specified disorders of Eustachia n tube, right ear; Note: Date Diagnosed : 9 3:34 PM (H69.81) Not Available [facility] 4 02:36:32 Impacted cerumen in right ear 02687396709 81475 Active 2019 Impacted cerumen, right ear; Note: Date Diagnosed : 10/19/2019 4:49 PM (H61.21) Not Available [facility] 4 02:36:33 Bilateral disorder of Eustachia n tubes 29012016272 42509 Active 2021 Other specified disorders of Eustachia n tube, bilateral ; Note: Date Diagnosed : 01/24/2022 11:09 AM (H69.83) Not Available [facility] 4 02:36:37 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 Active 2022 Adhesive middle ear disease, unspecifi ed as to involveme nt; Note: Date Diagnosed : 01/25/2015 4:49 PM (385.10) ; Start Date : 5 Adhesiv e middle ear disease, bilateral ; Note: Date Diagnosed : 01/27/2023 9:29 AM (H74.13) Not Available [facility] 4 02:36:33 Mixed conductiv e and sensorine ural hearing loss, bilateral 671248555 Active 2023 Mixed conductiv e and sensorine ural hearing loss, bilateral ; Note: Date Diagnosed : 11/13/2023 10:35 AM (H90.6) Not Available [facility] 4 02:36:38 Chronic sinusitis 58749909 Active 2023 KYARA HINOJOSA PA-C [address] [place],[facility] 100, [facility] [place], [address] , [facility] - [facility] 4 10:44:16 Moderate persisten t asthma 485316221 Active 2023 MARY ANN NAVARRO MD [address] [facility] [place] 100, [facility] [place], [address] , [facility] - [facility] 4 16:13:24 Sensorine ural hearing loss in right ear 14078034109 100 Active 2024 ANASTASIIA DALE [address] [facility] [place] [address], [facility] [place], [address] , [facility] - [facility] 5 12:51:56 Problem Notes None recorded. Procedures Surgical History Date Name Laterality Status Provider Name and Address Organization Details Recorded Time 5 Debridement of Mastoid Cavity left completed PAULA LEI MD 100 [facility],[place] [address], [place], [address], [facility] - [facility] 11/21/2024 19:40:02 5 Cerumen removal with microscope right completed PAULA LEI MD 100 [facility],[place] [address], [place], [address], [facility] 11/22/2024 09:16:58 4 Nasal Endoscopy completed KYARA HINOJOSA PA-C 100 [facility],[address], [address], [facility] 06/14/2024 10:43:14 Imaging Results None recorded. Procedure Notes None recorded. Medical Equipment None Reported. Allergies Allergen ID Allergen Name Allergen Category Reaction Reaction Severity Criticality Documentation Date Start Date Code Code System Note Provider Name and Address Organization Details Recorded Time 25101 azithromy martha medicatio n other Not available Not available 12/23/2023 74235 RxNorm React ion: unkno wn, unspe cifie d;; Not Available [facility] 4 01:01:02 11683 levofloxa martha medicatio n other Not available Not available 12/23/2023 99738 RxNorm React ion: unkno wn, unspe cifie d;; Not Available [facility] 4 01:01:03 55613 Substance with sulfonami de structure and antibacte rial mechanism of action (substanc e) medicatio n other Not available Not available 12/23/2023 82371 8003 SNOMED React ion: unkno wn, unspe cifie d;; Not Available [facility] 4 01:01:06 91009 Iodine and/or iodine compound (substanc e) Not available other Not available Not available 12/23/2023 83308 6004 SNOMED React ion: unkno wn, unspe cifie d;; Not Available [facility] 4 01:01:08 Medications Name Sig Start Date Stop Date Status Note LastModified by Organization Details LastModified Time cyclobenz aprine 10 mg tablet 06/25 completed Medicati on ID: [id number] D uration Value: 30 Reason: () Brand Name: cycloben zaprine Send Method: E-Prescr ibed Sub s Allowed: subs OK Speci al Instruct ion: TAKE 1 TABLET BY MOUTH 3 TIMES A DAY Medi cationGe nericNam e: cycloben zaprine Not Available Not Available Not Available amoxicill in 500 mg capsule 04/30 completed Medicati on ID: [id number] D uration Value: 10 Reason: () Brand Name: amoxicil wilton Send Method: E-Prescr ibed Sub s Allowed: subs OK Medic ationGen ericName : amoxicil wilton Not Available Not Available Not Available prednison e 10 mg tablet PLEASE SEE ATTACHED FOR DETAILED DIRECTIO NS 06/14 completed Not Available Not Available Not Available doxycycli ne hyclate 100 mg capsule TAKE 1 CAPSULE ORALLY 2 TIMES A DAY FOR 21 DAYS 06/14 completed Not Available Not Available Not Available fluconazo le 150 mg tablet 11/22 completed Not Available Not Available Not Available medroxypr ogesteron e 2.5 mg tablet TAKE 1 TABLET BY MOUTH EVERY DAY active Not Available Not Available No t Available hydrocodo ne 5 mg-acetam inophen 325 mg tablet TAKE 1 TABLET BY MOUTH EVERY 4 TO 6 HOURS FOR 3 DAYS 11/22 completed Not Available Not Available Not Available prednison e 20 mg tablet TAKE 3 TABLETS BY MOUTH EVERY DAY 11/22 completed Not Available Not Available Not Available methylpre dnisolone 4 mg tablet TAKE 6 TABS DAILY X2 DAYS, 5 TAB X2 DAYS, 4 TAB X2 DAYS, 3 TAB X2 DAYS, 2 TAB X2 DAYS, 1 TAB X2 DAYS 11/22 completed Not Available Not Available Not Available Advair Diskus 100 mcg-50 mcg/dose powder for inhalatio n 01/29 completed Medicati on ID: [id number] Du ration Value: 30 Reason: () Brand Name: Advair Diskus S end Method: E-Prescr ibed Sub s Allowed: subs OK Medic ationGen ericName : Advair Diskus Not Available Not Available Not Available tramadol 50 mg tablet TAKE 1 TABLET BY MOUTH EVERY 8 HOURS NEEDED FOR PAIN 06/14 completed Not Available Not Available Not Available estradiol 1 mg tablet TAKE 1 TABLET BY MOUTH EVERY DAY active Not Available Not Available No t Available aspirin 325 mg tablet,de layed release TAKE 1 TABLET BY MOUTH EVERY DAY FOR 30 DAYS active Not Available Not Available No t Available meclizine 25 mg tablet TAKE 1 TABLET BY MOUTH 4 TIMES A DAY NEEDED FOR DIZZINES S 06/14 completed Not Available Not Available Not Available omeprazol e 20 mg capsule,d elayed release active Medicati on ID: [id number] B rand Name: omeprazo le Send Method: E-Prescr ibed Sub s Allowed: subs OK Medic ationGen ericName : omeprazo le Not Available Not Available Not Available zolpidem 5 mg tablet TAKE 1 TABLET BY MOUTH EVERY DAY AT BEDTIME NEEDED FOR INSOMNIA active Not Available Not Available No t Available epinephri ne 0.3 mg/0.3 mL injection , auto-inje ctor USE DIRECTED FOR ANAPHYLA XIS AND CALL 911 06/14 completed Not Available Not Available Not Available methylpre dnisolone 4 mg tablets in a dose pack TAKE 6 TABLETS ON DAY 1 DIRECTED ON PACKAGE AND DECREASE BY 1 TAB EACH DAY FOR A TOTAL OF 6 DAYS 06/14 completed Not Available Not Available Not Available ondansetr on 4 mg disintegr ating tablet PLACE 1 TABLET EVERY 8 HOURS BY TRANSLIN GUAL ROUTE FOR 7 DAYS 11/22 completed Not Available Not Available Not Available doxycycli ne hyclate 100 mg tablet TAKE 1 TABLET BY MOUTH TWICE A DAY active Not Available Not Available No t Available ipratropi um bromide 21 mcg (0.03 %) nasal spray SPRAY 2 SPRAYS INTO EACH NOSTRIL 3 TIMES A DAY NEEDED FOR NASAL CONGESTI ON active Not Available Not Available No t Available ipratropi um bromide 0.02 % solution for inhalatio n INHALE 1 AMPULE VIA NEBULIZE R EVERY 4-6 HOURS NEEDED 11/22 completed Not Available Not Available Not Available amoxicill in 500 mg-potass ium clavulana te 125 mg tablet TAKE 1 TABLET BY MOUTH TWICE A DAY 06/14 completed Not Available Not Available Not Available Vitamin D3 25 mcg (1,000 unit) capsule TAKE 1 CAPSULE BY MOUTH DAILY active Not Available Not Available No t Available nitrofura ntoin monohydra te/macroc rystals 100 mg capsule TAKE 1 CAPSULE BY MOUTH TWICE A DAY FOR 5 DAYS 06/14 completed Not Available Not Available Not Available Atrovent HFA 17 mcg/actua tion aerosol inhaler TAKE 2 PUFFS BY MOUTH EVERY 6 HOURS NEEDED FOR SHORTNES S OF BREATH OR WHEEZING active Not Available Not Available No t Available doxycycli ne hyclate 100 mg tablet,de layed release TAKE 1 TABLET BY MOUTH TWICE A DAY 06/14 completed Not Available Not Available Not Available Zyrtec 10 mg capsule 1 capsule by mouth 06/14 completed Medicati on ID: [id number] Br and Name: Shivani S end Method: E-Prescr ibed Sub s Allowed: subs OK Medic ationGen ericName : Zyrtec Not Available Not Available Not Available Breo Ellipta 100 mcg-25 mcg/dose powder for inhalatio n INHALE 1 PUFF BY MOUTH DAILY active Not Available Not Available No t Available Breo Ellipta 200 mcg-25 mcg/dose powder for inhalatio n INHALE 1 PUFF DAILY 11/22 completed Not Available Not Available Not Available Spiriva Respimat 1.25 mcg/actua tion solution for inhalatio n INHALE 2 PUFFS BY MOUTH DAILY active Not Available Not Available No t Available Dupixent 300 mg/2 mL subcutane ous pen injector active Not Available Not Available Not Available Paxlovid 300 mg (150 mg x 2)-100 mg tablets in a dose pack TAKE 3 TABLETS BY MOUTH TWICE A DAY DIRECTED FOR 5 DAYS 06/14 completed Not Available Not Available Not Available Vitals None Recorded Social History None recorded. Functional Status None recorded. Mental Status None recorded. Family History Nothing Reported. Medical History Condition Response Thyroid Problems Y Asthma Y Gynecological HistoryNo gynecological history recorded. Obstetrics History GPAL:G 0 P 0 0 0 0 Past Encounters Encounter ID Performer Location Encounter Start Date Encounter Closed Date Diagnosis/Indication Diagnosis SNOMED-CT Code Diagnosis ICD10 Code Diagnosis Note [id number] MARY ANN NAVARRO MD [facility] [address] [address] 06/14/2024 09:59:52 06/14/2024 12:24:48 Chronic sinusitis 09304825 J32.9 Allergic rhinitis 901979 04 J30.9 Moderate p ersistent asthma 684028044 J45.40 [id number] ANASTASIIA DALE [facility] [place] [address] [place] [address] [place] [id number] 09/08/2024 12:59:59 09/09/2024 07:25:11 Mixed conductive and sensorineural hearing loss of left ear 9584736828 9107 H90.A32 Sensorineu ral hearing loss in right ear 8743644584 9100 H90.A21 [id number] PAULA LEI MD [facility] [address] [address] 11/22/2024 08:34:03 11/22/2024 12:04:39 Adhesive middle ear disease 0542439 H74.13 Both ears continue to show stable retraction s without signs of acute or chronic inflammati on. Continue with observatio n. Postmastoi dectomy complication 95919383 H95.192 Left canal wall down mastoidect josseline cavity cleaned today. No signs of acute or chronic inflammati on. Recommend cleaning and follow-up in 1 year. Sensorineu ral hearing loss in right ear 1241812689 9100 H90.A21 Cerumen removed from the right ear, which may have been the cause of the positional nature of her hearing aid output. She will see how this goes going forward. Patient will continue to follow-up with our audiology group for hearing aid maintenanc e. A different style of earmold may be required if the positional volume difference s persist Mixed cond uctive and sensorineural hearing loss of left ear 6667356600 9107 H90.A32 Impacted c erumen in right ear 1693325139 528732 H61.21 Health Concerns Section Related Observation LastModified by Organization Detai ls LastModified Time None Recorded Concern Status LastModified by Organization Details LastModified Time None Recorded Advance Directives Directive None Recorded Payers Insurance Date Sequence Insurance Name Policy Number Policy Becker Covered Member ID Becker Member ID Guarantor Name 06/14/2024 1 [facility] PL[facility] (O) Elena Rachel Godbout [id number] Elena Rachel Godbout 11/22/2024 1 [facility] - DIRECT CONNECTORCARE TYPE I (HMO) [id number] Elena A Godbout [id number] Elena A Godbout 11/22/2024 1 [facility] - DIRECT - [employer] (HMO) [id number] Elena A Godbout [id number] Elena Ramos Godbout Notes Date Note Type Note Provider Name and Address Organization Details Recorded Time 06/14/2024 text/html 64-year-old fema abdulaziz with allergic rhinitis and asthma on Dupixent after failing Fasenra presents for evaluation of chronic sinusitis. She has an IgM deficiency and elevated eosinophils. Sinus symptoms started two months ago. Today she endorses nasal congestion, post nasal drip, clear and yellow rhinorrhea, trouble breathing through the nose, anosmia, decreased taste, and maxillary and frontal facial pressure. One week ago she extruded a white rubbery substance from her nose. Over the past two months, she trialed Doxycycline x2, Augmentin, Methylprednisolone, and Prednisone. She is currently using Breo, Spirivia, Dupixent, Zyrtec, Flonase, and saline nasal spray. Prior to symptom onset, her allergies and asthma were well-controlled. She is followed by Allergy and Immunology and Pulmonology. She has not been able to get immunotherapy injections for two months due to acute illness. Denies shortness of breath, wheezing, hearing changes, or fever. She has a sinus CT tomorrow at [facility]. She has a history of repaired cleft lip and palate and left canal wall down mastoidectomy. MARY ANN AGUDELO MD [address] [facility] [place],[address], [address], [facility] 06/14/2024 16:15:35 09/08/2024 text/html Per pt request:Switched the right tube to a 0 from a 1. She preferred the Belong style medium open dome vs. the [place]. Gave her a variety of other sized domes (Belong and [place] as well).The tone hook on the left aid was loose so I replaced the tone hook as well as the tubing.She will call if she has any other issues. ANASTASIIA DALE 100 [facility],[address], [address], [facility] 09/08/2024 13:50:36 11/22/2024 text/html Patient with history of repaired cleft lip and palate, and left canal wall down mastoidectomy who comes in today for mastoid debridement. Using binaural amplification dispensed through our office. Using the Eustachi device periodically for right sided ear blockage with good results. 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 We have talked about posterior semicircular canal occlusion surgery which would be complicated by presence of canal wall down mastoidectomy cavity. This has settled down significantly for her recently and is not really symptomatic in this regard currently. PAULA LEI MD [address] [facility] [address], [place], [address], [facility] 11/22/2024 09:17:46 OBGyn Episode No OBEpisode recorded.
--- OUTSIDE RECORDS SUMMARY | 2025-03-01 16:28 | XMS_ITS | Patient Health Record ---
Author Organization [facility] Address [address] [facility] [place] [address] Care Team Providers Care Flat Drier Name Role Phone Lion Teran MD Primary Care Provider Unavaila kristofer Khloe Adler Unavailable [phone] Allergies Allergen (clinical drug ingredient) Drug/Non Drug [...] tablet as need ed Orally Twice a day; Duration: 30 days 10/17/2022 Active predniSONE Not-Takin g Ibuprofen 600 MG 1 tablet Orally twice a day; Duration: 30 days 10/01/2013 Not-Taking EpiPen Active Advair Diskus Not-Ta debby Magnesium-Zinc 133.33-5 MG as directed Orally Active Lamisil 250 250 MG 1 Tab Oral Daily; Duration: 90 09/20/2014 Not-Taking Spiriva Respimat 2.5 MCG/ACT [...] Status Risk Notes Problem Acquired hallux valgus (17277797) Hallux valgus (acquired), left foot (M20.12) Active confirmed Problem Localized, primary osteoarthritis of the ankle and/or foot (697246298) Primary osteoarthrit is, left ankle 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) Active confirmed Problem Acquired hallux valgus (84286007) Hallux valgus (acquired), right foot (M20.11) Active confirmed Problem Acquired hammer toe of right foot (4735324435486678) Other hammer toe(s) (acquired), right foot (M20.41) Active confirmed Problem Acquired hammer toe of left foot (3198132638951350) Other hammer toe(s) (acquired), left foot (M20.42) Active confirmed Plan Of Treatment Pending Test Test Name Order Date *Liver Function Test (LFT) 09/07/2014 X ray : Foot, right 3V 02/27/2018 [id number] NAIL, 6 OR MORE 11/01/2013 [id number] NAIL, 6 OR MORE 03/03/2014 [id number] NAIL, 6 OR MORE 06/01/2014 [id number] NAIL, 6 OR MORE 09/07/2014 [id number] NAIL, 6 OR MORE 11/14/2014 [id number] TENDON SHEATH/LIGAMENT 1 08/12/2021 [id number] TENDON SHEATH/LIGAMENT 0 10/17/2022 [id number] TENDON SHEATH/LIGAMENT 0 11/25/2022 Insurance Providers Payer Name Payer Address Payer Phone Subscriber Number Group Number Insured Name Patient Relationship to Insured Coverage Start Date Coverage End Date [facility] [address] [place] [address] [phone] [id number] Andrew Vitale Spouse - patient is the spouse of [...]
== END 2025-03-01 16:12 | disposition home or self-care (01) ==
LOC: HO.ENCR 15:39
PROVIDERS: PCP Internal Medicine; Visit Provider Student in an Organized Health Care Education/Training Program
DX: E04.1 Nontoxic single thyroid nodule (principal); R79.89 Other specified abnormal findings of blood chemistry
CPT/HCPCS: 99213

== ENCOUNTER → 2025-03-01 15:39 | Outpatient (BNVA) | payer OTHER, SELFPAY | PROVIDERS: PCP Internal Medicine; Visit Provider Student in an Organized Health Care Education/Training Program | DX: E04.1 Nontoxic single thyroid nodule (principal); R79.89 Other specified abnormal findings of blood chemistry | CPT/HCPCS: 99212 ==

== ENCOUNTER 2025-07-19 16:54 | Emergency (ER) | payer OTHER, SELFPAY ==
[2025-07-19 17:05] VITALS: BP 147/83; PULSE 95; RESP 18; TEMP 36.3; O2SAT 99; BMI 29.1
--- NOTE | 2025-07-19 17:10 | ED_ITS ---
HPI - General Adult General Chief complaint: Allergic Reaction Stated complaint: allergic reaction epi pen used Time Seen by Provider: 07/19/25 17:08 Source: patient Mode of arrival: ambulatory Limitations: no limitations History of Present Illness ED Provider: Dr. Wiley HPI narrative: This is a 65-year-old female presented hospital today for possible allergic reaction after receiving cortisone shot to her right knee. Patient stated that she gave herself an EpiPen she felt her throat was closing up. She gave it around 1650. Patient stated that she has multiple allergies. She feels that her throat is still closing up at this time. Related Data Home Medications ?Medication ?Instructions ?Recorded ?Confirmed ipratropium bromide 17 0 mcg inhalation 07/08/22 mcg/actuation HFA aerosol inhaler (Atrovent HFA) dupilumab 300 mg/2 mL subcutaneous mg subcut 12/17/22 11/01/24 pen injector (Dupixent) fluticasone furoate 100 1 ea inhalation DAILY 11/01/24 mcg-vilanterol 25 mcg/dose inhalation powder (Breo Ellipta) estradiol 1 mg tablet 1 mg PO DAILY 09/24/2411/01 medroxyprogesterone 2.5 mg tablet 2.5 mg PO DAILY 09/1111/01/24 esomeprazole magnesium 20 mg 20 mg PO DAILY 11/01/24 0 11/01/24 tablet,delayed release multivitamin 1 tab PO DAILY 11/01/2410/10 Previous Rx's ?Medication ?Instructions ?Recorded omega-3 174 mg-dha 50 mg-epa 115 1 cap PO DAILY #90 ca ps 09/24/24 mg-fish 250 mg-coQ10 50 mg capsule (CoQmax [place]) cholecalciferol (vitamin D3) 25 25 mcg PO DAILY 3 maria alejandra hs #90 caps 11/01/24 mcg (1,000 unit) capsule zolpidem 5 mg tablet 5 mg PO BEDTIME PRN insomnia #30 06/17/25 tabs nirmatrelvir 300 mg (150 mg See Rx Instructions PO .CO MPLEX 07/12/25 x2)-ritonavir 100 mg tablet,dose #30 tabs pack (Paxlovid) Allergies Allergy/AdvReac Type Severity Reaction Status Date / Time albuterol (ALBUTEROL) Allergy Unknown ANAPHYLAXIS Verified 07/19/25 17:06 azithromycin (AZITHROMYCIN) Allergy Unknown ANGIOEDEMA, Verified 07/19/25 17:06 tingling tongue/throat bee venom protein (honey bee) Allergy Unknown Anaphylaxis Verified 07/19/25 17:06 guaifenesin (GUAIFENESIN) Allergy Unknown ANAPHYLACTIC, Verified 07/19/25 17:06 anaphylaxis iodine (IODINE) Allergy Unknown ANAPHYLAXIS, Verified 07/19/25 17:06 Slight throat swelling levofloxacin (Levaquin) Allergy Unknown rash Verified 07/19/25 17:06 tingling peanut (PEANUT) Allergy Unknown HIVES Verified 07/19/25 17:06 shellfish derived Allergy Unknown slight Verified 07/19/25 17:06 throat swelling Sulfa (Sulfonamide Allergy Unknown RASH Verified 07/19/25 17:06 Antibiotics) (SULFA (SULFONAMIDE ANTIBIOTICS)) atorvastatin AdvReac Intermediate Sneezing Verified 07/19/25 17:06 Monistat Cream Allergy Unknown Rash Uncoded 03/01/25 15:42 Review of Systems Review of Systems: Pertinent review of systems as mentioned in HPI. All other system otherwise negative. [facility] Past Medical History [facility] Narrative: Medical history as mentioned in HPI Medical History Elevated parathyroid hormone History of mammogram (~2023) Allergies Hx of thyroid nodule History of recent fall Annual physical exam Right hip pain Multinodular thyroid Asthma Surgical History History of surgery on right wrist History of ankle surgery History of ear surgery Family History Family History Father Myocardial infarction Diabetes Mother High cholesterol Diabetes Hypertension Breast cancer DDD (degenerative disc disease) Maternal Grandfather Mary's disease Thyroid disease Sister Overactive thyroid gland Maternal Aunt Thyroid disease Social History Social History Housing: House Alcohol intake: current Alcohol intake frequency: holidays/special occasions only Patient Tobacco Use Status: Never used Tobacco Tobacco use type: Cigarette Smoked in Last 30 Days: No e-Cigarette/Vaping Use: Never Used Second Hand Smoke Exposure: No Use of substances other than those prescribed or required for medical reasons: No Advance Directives: No Advance Directives Information Provided: No Do you have a plan to hurt others: No Plan Patient : No service: No Current occupational status: unemployed Cognitive needs: No Hearing needs: No Vision needs: No Physical Exam ED Exam Exam: General: Pleasant, no distress, interacting appropriately Head: Normacephalic, atraumatic ENT: oral mucosa moist, neck supple, no tracheal deviation, no sign of stridor, no signs of angioedema Cardiovascular: regular rate, regular rhythm, no murmurs, rubbing, gallops Respiratory: CTAB, no wheeze, rales, rhonchi Gastrointestinal: Soft, non distended, non tender, non guarding Extremities: No limb pain or swelling, no calf tenderness, no redness of the right knee Neurological: Awake and alert, no facial droop noted Skin: Warm and dry Psychiatric: Appropriate mood and thoughts Vital Signs: Vital Signs - 24 hr 07/19/25 17:05 07/19/25 17:38 Temperature 97.3 F Pulse Rate 95 88 Respiratory Rate 18 16 Blood Pressure 147/83 H 149/63 H Pulse Oximetry 99 95 Oxygen Delivery Method Room Air Room Air BMI result Body Mass Index 29.1 Medications Administered Discontinued Medications Generic Name Dose Route Start Last Admin Trade Name Freq PRN Reason Stop Dose Admin Diphenhydramine HCl 25 mg 07/19/25 17:21 07/19/25 17:26 Diphenhydramine Hcl 50 Mg/Ml Vial IVPUSH 07/19/25 17:22 25 mg ONCE ONE Administration Famotidine 20 mg 07/19/25 17:21 07/19/25 17:26 Famotidine/Pf 20 Mg/2 Ml Vial IVPUSH 07/19/25 17:22 20 mg ONCE ONE Administration Sodium Chloride 1,000 mls @ 999 mls/hr 07/19/25 17:30 07/19/25 18:33 Ns IV 07/19/25 18:30 Infused .Q1H1M JEANE Infusion Medical Decision Making Medical Decision Making [facility] Narrative: 65-year-old female presenting to ER today for evaluation of possible allergic reaction after receiving a cortisone shot in the right knee. Patient stated that she has been able to tolerate cortisone shot to the right knee in the past without any issues. We will plan to give patient some IV Pepcid and IV Benadryl. Patient has no signs of angioedema. Oropharynx does not appear to have any signs of swelling. No sign of stridor. I do not think patient has a upper respiratory obstruction. We will continue to observe the patient on a monitor. A bolus IV fluid be given to the patient. On reassessment patient is feeling better at this time. No further signs of anaphylaxis angioedema. She no longer feels the closing sensation in her throat. Patient does have EpiPen at home. 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 Patient will be discharged. Differential Diagnosis Differential Diagnoses: The differential diagnosis associated with the presentation includes Allergic reaction, angioedema, anaphylaxis Critical Care Time Critical Care Time Critical Care Time: Yes Total Critical Care Time: 40 Attestation: Time is exclusive of separately billable procedures. Time includes: direct patient care, patient reassessment, coordination of patient care, interpretation of data (laboratory data, pulse oximetry, arterial blood gases and chest xrays), review of patient's medical records, medical consultation and documentation of patient care. Procedures excluded from critical care time: central intravenous line placement and electrocardiography. Discharge Plan Discharge Clinical Impression: Allergic reaction Qualifiers: Encounter type: initial encounter Qualified Code(s): T78.40XA - Allergy, unspecified, initial encounter Patient Disposition: Home, Self-Care Instructions: General Allergic Reaction (ED) Prescriptions: No Action zolpidem 5 mg tablet 5 mg PO BEDTIME PRN (Reason: insomnia) Qty: 30 5RF Paxlovid 300 mg (150 mg x 2)-100 mg tablets,dose pack See Rx Instructions PO .COMPLEX Qty: 30 0RF Rx Instructions: take TWO 150 mg tablets of nirmatrelvir with ONE 100 mg tablet of ritonavir twice daily for 5 days PO Atrovent HFA 17 mcg/actuation HFA aerosol inhaler 0 mcg inhalation Dupixent Pen 300 mg/2 mL pen injector subcut estradiol 1 mg tablet 1 mg PO DAILY medroxyprogesterone 2.5 mg tablet 2.5 mg PO DAILY CoQmax [place] [phone] mg capsule 1 cap PO DAILY Qty: 90 3RF fluticasone furoate-vilanterol [Breo Ellipta] 100-25 mcg/dose blister with device 1 ea inhalation DAILY esomeprazole magnesium 20 mg tablet,delayed release (DR/EC) 20 mg PO DAILY multivitamin Tablet 1 tab PO DAILY cholecalciferol (vitamin D3) 25 mcg (1,000 unit) capsule 25 mcg PO DAILY 90 Days Qty: 90 1RF Print Language: Romansh
--- NOTE | 2025-07-19 17:36 | PC.NURSE ---
patient a&ox3, iv inserted, gambling monitor applied- nsr on monitor, O2 sat wnl, ivf started per order, pt stated she felt as if her throat was closing- provider at bedside evaluating pt, pt medicated per his orders, call wolfe within reach
[2025-07-19 17:38] VITALS: BP 149/63; PULSE 88; RESP 16; O2SAT 95
[2025-07-19 20:08] VITALS: BP 149/63; PULSE 88; RESP 16; TEMP 36.1; O2SAT 95
--- OUTSIDE RECORDS SUMMARY | 2025-07-19 23:03 | XMS_ITS | Clinical Summary ---
Author Organization [address] [facility] Address [address] [place] [address] Phone Care Team Providers Care Public Health Clinical Nurse Specialist Name Role Phone Troy Carr MD Primary Care Provider [phone] Encounters Date Type Department Care Team Description 07/12/2025 Lab Requisition [facility] - Main Lab [address] [facility] [place] [address] Jerel Gomez MD Encounter for gynecological examination (general) (routine) without abnormal findings from Last 3 Months Social History Tobacco Use Types Packs/Day Years Used Date Smoking Tobacco: Never Assessed Comments Unknown Sex and Gender Information Value Date Recorded Sex Assigned at Not on file Legal Sex Female 8:19 AM EST Gender Identity Not on file Sexual Orientation Not on file Plan of Treatment Health Maintenance Due Date Last Done Comments Breast Cancer Screening 1960 Colorectal Cancer Screening: Colonoscopy 1960 DTaP,Tdap,and Td Vaccines (1 - Tdap) 02/14/1980 Cervical Cancer Screening: P ap Smear 1982 07/11/2025 Pneumococcal Vaccine: 50+ Ye ars (1 of 1 - PCV) 2011 Zoster Vaccines (1 of 2) 2011 Depression Screening 08/11/2024 COVID-19 Vaccine ( - 2024-2 6 season) 2025 Influenza Vaccine (#1) 2025 HIV Screening 07/12/2025 Hepatitis C Screening 07/12/2025 Social Influencers of Health Screening 07/12/2025 RSV Immunization Adult Patie nts (1 - 1-dose 75+ series) 02/14/2036 HIB Vaccines Aged Out No longer eligi ble based on patient's age to complete this topic HPV Vaccines Aged Out No longer eligi ble based on patient's age to complete this topic Hepatitis A Vaccines Aged Out No long er eligible based on patient's age to complete this topic Hepatitis B Vaccines Aged Out No long er eligible based on patient's age to complete this topic IPV Vaccines Aged Out No longer eligi ble based on patient's age to complete this topic MMR Vaccines Aged Out No longer eligi ble based on patient's age to complete this topic Meningococcal ACWY Vaccine Aged Out N o longer eligible based on patient's age to complete this topic Meningococcal B Vaccine Aged Out No l onger eligible based on patient's age to complete this topic RSV Immunization Patients Un jhoana 20 months Aged Out No longer eligible b ased on patient's age to complete this topic Varicella Vaccines Aged Out No longer eligible based on patient's age to complete this topic Procedures Procedure Name Priority Date/Time Associated Diagnosis Comments PAP SMEAR Routine 07/11/2025 12:00 AM EST Encounter for gynecological examination (general) (routine) without abnormal findings from Last 3 Months Results * Pap smear (07/11/2025 12:00 AM EST) Interpretation Negative for intraepithelial lesion or malignancy 07/14/2025 11:24 AM [facility] at 1124 EST General Categorization Negative 07/14/2025 11:24 AM [facility] Specimen Adequacy Satisfactory for evaluation, endocervical/coles sformation zone component absent 07/14/2025 11:24 AM [facility] Pap Methodology Liquid Based Pap Test 07/14/2025 11:24 AM [facility] Disclaimer The Pap test is a screening test which carries an inherent false negative rate. These test results should be correlated with the patient's clinical findings and history. This Pap test was processed using an automated screening system. Technical cytopathology services provided by [facility], at [address] [place] [address], [place] [address] (CLIA # [id number]/Moraima Mcnair MD, Compensation Programs Manager.) 07/14/2025 11:24 AM [facility] Console Pap Interpretation Reported 07/14/2025 11:24 AM EST KIM SAENZ WA ([facility]) [facility] Brushing/Spatula Cervix uteri structure / Unknown 07/11/2025 07/12/2025 8:26 AM EST us Jerel Gomez MD LAB CYTOLOGY ORDERABLES Final Result [facility] ([facility]) [facility] [address] [place] [address], from Last 3 Months Insurance [employer] [id number] [facility] Care Teams Public Health Clinical Nurse Specialist Relationship Specialty Start Date End Date Troy Carr MD [facility] [address] [place] [address] [address] [place] [address] PCP - General Internal Medicine 07/12/25
--- OUTSIDE RECORDS SUMMARY | 2025-07-19 23:03 | XMS_ITS | Data Portability ---
Author Organization [facility], Allergy Address [address] [address] Care Team Providers Care Block Saw Operator Name Role Phone SERGO MAR Primary Care [...] is scheduled for sinus CT tomorrow at [facility] and was instructed to bring physical disc of images to our office for review. 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 Recommend continuing Breo, Spirivia, Dupixent, Zyrtec, Flonase, and nasal saline spray. She will be seeing her slot key person later this week. Suggest considering ANCA and antibody titers if not already performed. Will follow up with treatment recommendations after reviewing sinus CT images. She has a history of repaired cleft lip and palate and left canal wall down mastoidectomy, and will follow up with Dr. Lei for routine mastoid debridement in November. Seen with Kyara LEONG I took independent history, performed the examination and endoscopy while formulating the plan mahamed Not available 06/14/2024 16:13:15 Plan of Treatment Reminders Order Date Submit Date Provider Last Modified By Organization Details Last Modified Time Details Appointments HER Fitting Follow Up (30) 2025 04:00P ANASTASIIA ROBLEDO Not available Not available Not available Establish ed 10 2025 09:00A M PAULA [...] : 01/25/2015 4:01 PM (389.21) Not Available [facility] 4 02:36:37 Sensorine ural hearing loss 98975001 Active 2015 Sensorine ural hearing loss, unilatera l, right ear, with unrestric mario hearing on the contralat eral side; Note: Date Diagnosed : 01/30/2016 3:54 PM (H90.41) Not Available [facility] 4 02:36:41 Benign paroxysma l positiona l vertigo 337161780 Active 2015 Benign paroxysma l vertigo, left ear; Note: Changed from H81.10 to H81.12 (11/13/2023 10:35 AM) , Date Diagnosed : 01/30/2016 3:53 PM (H81.10) Not Available [facility] 4 02:36:31 Postmasto idectomy complicat ion 12687586 Active 2015 Other disorders following mastoidec wang, left ear; Note: Date Diagnosed : 01/30/2016 3:42 PM (H95.192) Not Available [facility] 4 02:36:31 Deviated nasal septum 485650310 Active 2016 Deviated nasal septum; Note: Date Diagnosed : 7 3:22 PM (J34.2) Not Available [facility] 4 02:36:35 Nasal congestio n 34555082 Active 2016 Nasal congestio n; Note: Date Diagnosed : 7 3:22 PM (R09.81) Not Available [facility] 4 02:36:34 History of repair of cleft lip 847672701 Active 2016 Personal history of (correcte d) cleft lip and palate; Note: Date Diagnosed : 7 4:32 PM (Z87.730) Not Available [facility] 4 02:36:42 History of repair of congenita l cleft palate 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 9107 Active 2016 Personal history of (correcte d) cleft lip and palate; Note: Date Diagnosed : 7 4:32 PM (Z87.730) Not Available [facility] 4 02:36:42 Acute upper respirato ry infection 58401013 Active 2017 Acute upper respirato ry infection , unspecifi ed; Note: Date Diagnosed : 05/12/2018 5:05 PM (J06.9) Not Available [facility] 4 02:36:33 Granulati ons of postmasto idectomy cavity Active 2018 Granulati ons of postmasto idectomy cavity; Note: Date Diagnosed : 04/30/2019 1:19 PM (383.33) Recurre nt debris collectio n within post mastoidec wang cavity; Note: Date Diagnosed : 01/25/2015 4:49 PM (383.33) ; Start Date : 5 Not Available [facility] 4 02:36:33 Conductiv e hearing loss of right ear 7888546381 Active 2018 Conductiv e hearing loss, unilatera l, right ear with restricte d hearing on the contralat eral side; Note: Date Diagnosed : 9 4:35 PM (H90.A11) Not Available [facility] 4 02:36:33 Mixed conductiv e and sensorine ural hearing loss of left ear 30060175477 107 Active 2018 Mixed conductiv e and [...] : 9 4:35 PM (H90.A32) Not Available [facility] 4 02:36:34 Allergic rhinitis 31653530 Active 2018 Other allergic rhinitis; Note: Date Diagnosed : 9 3:34 PM (J30.89) Not Available [facility] 4 02:36:31 Disorder of right Eustachia n tube 05287382827 02382 Active 2018 Other specified disorders of Eustachia n tube, right ear; Note: Date Diagnosed : 9 3:34 PM (H69.81) Not Available [facility] 4 02:36:32 Impacted cerumen in right ear 55798836564 72683 Active 2019 Impacted cerumen, right ear; Note: Date Diagnosed : 10/19/2019 4:49 PM (H61.21) Not Available [facility] 4 02:36:33 Bilateral disorder of Eustachia n tubes 24289076628 89677 Active 2021 Other specified disorders of Eustachia n tube, bilateral ; Note: Date Diagnosed : 01/24/2022 11:09 AM (H69.83) Not Available [facility] 4 02:36:37 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,[place] [address], [place], [address] , [facility] [place] 4 10:44:16 Moderate persisten t asthma 238887834 Active 2023 MARY ANN NAVARRO MD [address] [facility],[place] [address], [place], [address] , [facility] - [facility] [place] 4 16:13:24 Sensorine ural hearing loss in right ear 12731927997 100 Active 2024 ANASTASIIA DALE [address] [place] [address],[place] [address], [place], [address] , [facility] - [facility] 5 12:51:56 Problem Notes None recorded. Procedures Surgical History Date Name Laterality Status Provider Name and Address Organization Details Recorded Time 5 Debridement of Mastoid Cavity left completed PAULA LEI MD [address] [facility],[place] [address], [place], [address], [facility] - [facility] 11/21/2024 19:40:02 5 Cerumen removal with microscope right completed PAULA LEI MD [address] [facility],[address], [address], [facility] - [facility] 11/22/2024 09:16:58 4 Nasal Endoscopy completed KYARA YANEZ PA-C [address] [place] [address],[address], [address], [facility] - [facility] 06/14/2024 10:43:14 Imaging Results None recorded. Procedure Notes None recorded. Medical Equipment None Reported. Allergies Allergen ID Allergen Name Allergen Category Reaction Reaction Severity Criticality Documentation Date Start Date Code Code System Note Provider Name and Address Organization Details Recorded Time 32181 azithromy martha medicatio n other Not available Not available 12/23/2023 08936 RxNorm React ion: unkno wn, unspe cifie d;; Not Available [facility] 4 01:01:02 32169 levofloxa martha medicatio n other Not available Not available 12/23/2023 03434 RxNorm React ion: dereko wn, unspe cifie d;; Not Available [facility] 4 01:01:03 32136 Substance with sulfonami de structure and antibacte rial mechanism of action (substanc e) medicatio n other Not available Not available 12/23/2023 72370 8003 SNOMED React ion: unkno wn, unspe cifie d;; Not Available [facility] 4 01:01:06 80914 Iodine and/or iodine compound (substanc e) Not available other Not available Not available 12/23/2023 82643 6004 SNOMED React ion: aimee burns, unspe cifie d;; Not Available [facility] 4 01:01:08 Medications Name Sig Start Date Stop Date Status Note LastModified by Organization Details LastModified Time cyclobenz aprine 10 mg tablet 06/25 completed Medicati on ID: [id number] D uration Value: 30 Reason: () Brand Name: cycloben zaprine Send Method: E-Prescr ibed Sub s Allowed: subs OK Speci al Instruct ion: TAKE 1 TABLET BY MOUTH 3 TIMES A DAY Medi cationGe nericNam e: cycloben zaprine Not Available Not Available Not Available amoxicill in 500 mg capsule 04/30 completed Medicati on ID: [id number] D uration Value: 10 Reason: () Brand Name: amoxicil wilton Send Method: E-Prescr ibed Sub s Allowed: subs OK Medic ationGen ericName : amoxicil wilton Not Available Not Available Not Available prednison e 10 mg tablet TAKE 5 TABS X 2 DAYS, 4 TABS X 2 DAYS, 3 TABS X 2 DAYS, 2 TABS X 2 DAYS, 1 TAB X 2 DAYS active Not Available Not Available No t Available doxycycli ne hyclate 100 mg capsule [...] tablet TAKE 1 TABLET BY MOUTH EVERY 6-8 HOURS WITH MEALS FOR PAIN FOR 7 DAYS active Not Available Not Available No t Available prednison e 20 mg tablet TAKE [...] inhalatio n 01/29 completed Medicati on ID: [id number] Du ration Value: 30 Reason: () Brand [...] omeprazol e 20 mg capsule,d elayed release TAKE 1 CAPSULE BY MOUTH EVERY DAY NEEDED active Not Available Not Available No t Available zolpidem 5 mg tablet TAKE 1 TABLET BY MOUTH AT BEDTIME NEEDED FOR INSOMNIA active Not Available Not Available No t Available epinephri ne 0.3 mg/0.3 mL injection , auto-inje ctor USE DIRECTED FOR ANAPHYLA XIS AND CALL 911 active Not Available Not Available No t Available methylpre dnisolone 4 mg tablets in [...] 1 TABLET BY MOUTH TWICE A DAY 05/22 completed Not Available Not Available Not Available ipratropi um bromide 21 mcg (0.03 [...] Atrovent HFA 17 mcg/actua tion aerosol inhaler INHALE 2 PUFFS BY MOUTH EVERY 6 HOURS NEEDED active Not Available Not Available No t Available doxycycli ne hyclate 100 mg tablet,de layed release TAKE 1 TABLET BY MOUTH TWICE A DAY 06/14 completed Not Available Not Available Not Available Zyrtec 10 mg capsule 1 capsule by mouth 06/14 completed Medicati on ID: [id number] Br and Name: [place] S end Method: E-Prescr ibed Sub s [...] Diagnosis SNOMED-CT Code Diagnosis ICD10 Code Diagnosis IMO Codes Diagnosis Note [id number] MARY ANN NAVARRO MD [facility] [address] [address] 06/14/2024 09:59:52 06/14/2024 12:24:48 Chronic sinusitis 26518931 J32.9 Allergic rhinitis 710248 04 J30.9 Moderate p ersistent asthma 687746853 J45.40 [id number] ANASTASIIA DALE [facility] [place] [address] [place] [address] [place] [address] 09/08/2024 12:59:59 09/09/2024 07:25:11 Mixed conductive and sensorineural hearing loss of left ear 3132588032 9107 H90.A32 Sensorineu ral hearing loss in right ear 8470178084 9100 H90.A21 37770 PAULA LEI MD [facility] [address] [address] 11/22/2024 08:34:03 11/22/2024 12:04:39 Adhesive middle ear disease 2165365 H74.13 Both ears continue to show stable retraction s without signs of acute or chronic inflammati on. Continue with observatio n. Postmastoi dectomy complication 35861822 H95.192 Left canal wall down mastoidect josseline cavity cleaned today. No signs of acute or chronic inflammati on. Recommend cleaning and follow-up in 1 year. Sensorineu ral hearing loss in right ear 2385590161 9100 H90.A21 Cerumen removed from the right [...] and sensorineural hearing loss of left ear 2466016220 9107 H90.A32 Impacted c erumen in right ear 8282118313 944354 H61.21 Health Concerns Section Related Observation LastModified by Organization Detai ls LastModified Time None Recorded Concern Status LastModified by Organization Details LastModified Time None Recorded Advance Directives Directive None Recorded Payers Insurance Date Sequence Insurance Name Policy Number Policy Becker Covered Member ID Becker Member ID Guarantor Name 06/14/2024 1 [facility] (PPO) Elena A Godbout [id number] Elena A Godbout 06/26/2025 1 [facility] - DIRECT CONNECTORCARE TYPE I (HMO) [id number] Elena A Godbout [id number] Elena A Godbout 11/22/2024 1 [facility] - DIRECT - [place]AY OWINGEH ZERO (HMO) [id number] Elena A Godbout [id number] Elena Rachel Godbout Notes Date Note Type Note Provider Name and Address Organization Details Recorded Time 06/14/2024 text/html ROS as noted in the HPI 64-year-old female with allergic rhinitis and asthma [...] She has a sinus CT tomorrow at [facility]. She has a history of repaired cleft lip and palate and left canal wall down mastoidectomy. MARY ANN AGUDELO MD [address],[place] [address], [place], [address], [facility] 06/14/2024 16:15:35 09/08/2024 text/html Per pt request:Switched the right tube to a 0 from a 1. She preferred the [place] style medium open dome vs. the [place]. Gave her a variety of other sized domes (Belong and [place] as well).The tone hook on the left aid was loose so I replaced the tone hook as well as the tubing.She will call if she has any other issues. ANASTASIIA DALE [address] [facility],[address], [address], [facility] 09/08/2024 13:50:36 11/22/2024 text/html Patient with history [...] this regard currently. PAULA LEI MD [address],[facility], [place], [address], [facility] 11/22/2024 09:17:46 OBGyn Episode No OBEpisode recorded.
--- OUTSIDE RECORDS SUMMARY | 2025-07-19 23:04 | XMS_ITS | Encounter Summary ---
Author Organization [facility] Address [address] [place] [address] Care Team Providers Care Melt House Drag Operator Name Role Phone Troy Carr MD Primary Care Provider [phone]- [phone] Encounter Details Date Type Department Care Team (Latest Contact Info) Description 07/12/2025 Lab Requisition [facility] - Main Lab [address] [place] [address] Jerel Gomez MD [address] [address] Encounter for gynecological examination (general) (routine) without abnormal findings Social History Tobacco Use Types Packs/Day Years Used Date Smoking Tobacco: Never Assessed Comments Unknown Sex and Gender Information Value Date Recorded Sex Assigned at Not on file Legal Sex Female 8:19 AM EST Gender Identity Not on file Sexual Orientation Not on file documented as of this encounter Plan of Treatment Not on file documented as of this encounter Procedures Procedure Name Priority Date/Time Associated Diagnosis Comments PAP SMEAR Routine 07/11/2025 12:00 AM EST Encounter for gynecological examination (general) (routine) without abnormal findings documented in this encounter Results * Pap smear (07/11/2025 12:00 AM EST) Interpretation Negative for intraepithelial lesion or malignancy 07/14/2025 11:24 AM EST [facility] at 1124 EST General Categorization Negative 07/14/2025 11:[address] [facility] Specimen Adequacy Satisfactory for evaluation, endocervical/coles sformation zone component absent 07/14/2025 11:24 AM EST [facility] Pap Methodology Liquid Based Pap Test 07/14/2025 11:[address] [facility] Disclaimer The Pap test is a screening test which carries an inherent false negative rate. These test results should be correlated with the patient's clinical findings and history. This Pap test was processed using an automated screening system. Technical cytopathology services provided by [facility], at [address] [place] [address] (CLIA # [id number]/Moraima Mcnair MD, Sports Betting Manager.) 07/14/2025 11:[address] [facility] Console Pap Interpretation Reported 07/14/2025 11:24 AM [facility] Brushing/Spatula Cervix uteri structure / Unknown 07/11/2025 07/12/2025 8:26 AM EST us Jerel Gomez MD LAB CYTOLOGY ORDERABLES Final Result [facility] [address] [place] [address], documented in this encounter Visit Diagnoses Diagnosis Encounter for gynecological examination (general) (routine) without abnormal findings documented in this encounter Care Teams Melt House Drag Operator Relationship Specialty Start Date End Date Troy Carr MD [facility] [address] [place] [address] PCP - General Internal Medicine 07/12/25 documented as of this encounter
== END 2025-07-19 20:12 | disposition home or self-care (01) ==
PROVIDERS: Emergency Provider Student in an Organized Health Care Education/Training Program; PCP Internal Medicine
DX: T78.40XA Allergy, unspecified, initial encounter (principal); J45.909 Unspecified asthma, uncomplicated; Z79.899 Other long term (current) drug therapy
CPT/HCPCS: 96361; 96374; 96375; 99284; 99285; J1200; J1308

== ENCOUNTER 2025-08-10 09:52 | Outpatient (REF) | payer OTHER, SELFPAY ==
--- NOTE | ~2025-08-10 | XR_ITS ---
EXAMINATION: XR CHEST 2 VIEWS HISTORY: R05.9 - Cough, unspecified COMPARISON: There are no prior studies available for comparison. FINDINGS: PA and lateral views of the chest are submitted. The lungs are expanded and clear. There is no pleural effusion, pneumothorax, or pulmonary vascular congestion. The heart is normal in size. The bones are intact. XR/XR chest 2V IMPRESSION: Clear lungs. Electronically signed by: Diego Napier MD 08/10/2025 12:04 PM [place]
[2025-08-10 11:59] LABS: Hematocrit 41.7 % (37.0-47.0); Hemoglobin 13.7 g/dl (12.0-16.0); Mean Corpuscular HGB Conc 32.9 g/dl (31.0-35.0); Mean Corpuscular Hemoglobin 28.4 pg (27.0-33.0); Mean Corpuscular Volume 86.3 fL (80.0-98.0); NRBC Abs Auto 0.000 X10*3/uL (0.0-0.012); NRBC Pct Auto 0.0 /100WBC (0.0-0.2); Platelet Count 282 X10*3/uL (160-400); Red Blood Count 4.83 X10*6/uL (4.20-5.50); White Blood Count 9.6 X10*3/uL (4.8-10.8)
[2025-08-10 12:09] LABS: D Dimer High Sensitivity < 150 NG/ML
[2025-08-10 12:43] LABS: Anion Gap 14 (12-20); Blood Urea Nitrogen 21 mg/dL (9-16); Calcium 9.9 mg/dL (8.4-10.2); Carbon Dioxide 26 mmol/L (22-29); Chloride 105 mmol/L (96-108); Estimated Glomerular Filt Rate > 60; Potassium 4.2 mmol/L (3.3-5.1); Sodium 141 mmol/L (135-145)
--- OUTSIDE RECORDS SUMMARY | 2025-08-10 12:44 | XMS_ITS | Data Portability ---
Author Organization [facility] Address [address] [address] Care Team Providers Care Nursing Educator Name Role Phone SERGO MAR Primary Care [...] is scheduled for sinus CT tomorrow at [facility] and was instructed to bring physical disc of images to our office for review. 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 Recommend continuing Breo, Spirivia, Dupixent, Zyrtec, Flonase, and nasal saline spray. 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 Suggest considering ANCA and [...] : 01/25/2015 4:01 PM (389.21) Not Available [facility] 4 02:36:37 Sensorine ural hearing loss 58451367 Active 2015 Sensorine ural hearing loss, unilatera l, right ear, with unrestric mario hearing on the contralat eral side; Note: Date Diagnosed : 01/30/2016 3:54 PM (H90.41) Not Available [facility] 4 02:36:41 Benign paroxysma l positiona l vertigo 135601025 Active 2015 Benign paroxysma l vertigo, left ear; Note: Changed from H81.10 to H81.12 (11/13/2023 10:35 AM) , Date Diagnosed : 01/30/2016 3:53 PM (H81.10) Not Available [facility] 4 02:36:31 Postmasto idectomy complicat ion 10216563 Active 2015 Other disorders following mastoidec wang, left ear; Note: Date Diagnosed : 01/30/2016 3:42 PM (H95.192) Not Available [facility] 4 02:36:31 Deviated nasal septum 051242895 Active 2016 Deviated nasal septum; Note: Date Diagnosed : 7 3:22 PM (J34.2) Not Available [facility] 4 02:36:35 Nasal congestio n 79054565 Active 2016 Nasal congestio n; Note: Date Diagnosed : 7 3:22 PM (R09.81) Not Available [facility] 4 02:36:34 History of repair of cleft lip 392278934 Active 2016 Personal history of (correcte d) cleft lip and palate; Note: Date Diagnosed : 7 4:32 PM (Z87.730) Not Available [facility] 4 02:36:42 History of repair of congenita l cleft palate 81839999849 9107 Active 2016 Personal history of (correcte d) cleft lip and palate; Note: Date Diagnosed : 7 4:32 PM (Z87.730) Not Available [facility] 4 02:36:42 Acute upper respirato ry infection 98295600 Active 2017 Acute upper respirato ry infection , unspecifi ed; Note: Date Diagnosed : 05/12/2018 5:05 PM (J06.9) Not Available [facility] 4 02:36:33 Granulati ons of postmasto idectomy cavity Active 2018 Granulati ons of postmasto idectomy cavity; Note: Date Diagnosed : 04/30/2019 1:19 PM (383.33) Recurre nt debris collectio n within post mastoidec wang cavity; Note: Date Diagnosed : 01/25/2015 4:49 PM (383.33) ; Start Date : 5 Not Available [facility] 4 02:36:33 Conductiv e hearing loss of right ear 3992418982 Active 2018 Conductiv e hearing loss, unilatera l, right ear with restricte d hearing on the contralat eral side; Note: Date Diagnosed : 9 4:35 PM (H90.A11) Not Available [facility] 4 02:36:33 Mixed conductiv e and sensorine ural hearing loss of left ear 74115676095 107 Active 2018 Mixed conductiv e and [...] : 9 4:35 PM (H90.A32) Not Available [facility] 4 02:36:34 Allergic rhinitis 06645066 Active 2018 Other allergic rhinitis; Note: Date Diagnosed : 9 3:34 PM (J30.89) Not Available [facility] 4 02:36:31 Disorder of right Eustachia n tube 94642957706 69242 Active 2018 Other specified disorders of Eustachia n tube, right ear; Note: Date Diagnosed : 9 3:34 PM (H69.81) Not Available [facility] 4 02:36:32 Impacted cerumen in right ear 49143462718 81631 Active 2019 Impacted cerumen, right ear; Note: Date Diagnosed : 10/19/2019 4:49 PM (H61.21) Not Available [facility] 4 02:36:33 Bilateral disorder of Eustachia n tubes 92245340052 22083 Active 2021 Other specified disorders of Eustachia n tube, bilateral ; Note: Date Diagnosed : 01/24/2022 11:09 AM (H69.83) Not Available [facility] 4 02:36:37 Adhesive middle ear disease 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 Active 2022 Adhesive middle ear disease, unspecifi ed as to involveme nt; Note: Date Diagnosed : 01/25/2015 4:49 PM (385.10) ; Start Date : 5 Adhesiv e middle ear disease, bilateral ; Note: Date Diagnosed : 01/27/2023 9:29 AM (H74.13) Not Available [facility] 4 02:36:33 Mixed conductiv e and sensorine ural hearing loss, bilateral 829472670 Active 2023 Mixed conductiv e and sensorine ural hearing loss, bilateral ; Note: Date Diagnosed : 11/13/2023 10:35 AM (H90.6) Not Available [facility] 4 02:36:38 Chronic sinusitis 93352636 Active 2023 KYARA YANEZ PA-C [address] [facility],[place] [address], [facility] [place], [address] , [facility] 4 10:44:16 Moderate persisten t asthma 954009512 Active 2023 MARY ANN NAVARRO MD [address] [facility],[place] [address], [facility] [place], [address] , [facility] 4 16:13:24 Sensorine ural hearing loss in right ear 28568340834 100 Active 2024 ANASTASIIA DALE [address] [place] [address],[place] [address], [facility] [place], [address] , [facility] 5 12:51:56 Problem Notes None recorded. Procedures Surgical History Date Name Laterality Status Provider Name and Address Organization Details Recorded Time 5 Debridement of Mastoid Cavity left completed PAULA LEI MD [address] [facility],[place] [address], [place], [address], [facility] 11/21/2024 19:40:02 5 Cerumen removal with microscope right completed PAULA LEI MD [address] [facility],[address], [address], [facility] 11/22/2024 09:16:58 4 Nasal Endoscopy completed KYARA YANEZ PA-C [address] [place] [address],[address], [address], [facility] 06/14/2024 10:43:14 Imaging Results None recorded. Procedure Notes None recorded. Medical Equipment None Reported. Allergies Allergen ID Allergen Name Allergen Category Reaction Reaction Severity Criticality Documentation Date Start Date Code Code System Note Provider Name and Address Organization Details Recorded Time 91493 azithromy martha medicatio n other Not available Not available 12/23/2023 52515 RxNorm React ion: unkno wn, unspe cifie d;; Not Available [facility] 4 01:01:02 79262 levofloxa martha medicatio n other Not available Not available 12/23/2023 43499 RxNorm React ion: dereko wn, unspe cifie d;; Not Available [facility] 4 01:01:03 97140 Substance with sulfonami de structure and antibacte rial mechanism of action (substanc e) medicatio n other Not available Not available 12/23/2023 51540 8003 SNOMED React ion: unkno wn, unspe cifie d;; Not Available [facility] 4 01:01:06 99338 Iodine and/or iodine compound (substanc e) Not available other Not available Not available 12/23/2023 41655 6004 SNOMED React ion: aimee burns, unspe cifie d;; Not Available [facility] 4 01:01:08 Medications Name Sig Start Date Stop Date Status Note LastModified by Organization Details LastModified Time cyclobenz aprine 10 mg tablet 06/25 completed Medicati on ID: [id number] D uration Value: 30 Reason: () Brand Name: cycloben zaprine Send Method: E-Prescr ibed Sub s Allowed: subs OK Speci al Instruct ion: TAKE 1 TABLET BY MOUTH 3 TIMES A DAY Medi cationGe nericNam e: cycloben zaprine Not Available Not Available Not Available amoxicill in 500 mg capsule 04/30 completed Medicati on ID: 387305 D uration Value: 10 Reason: () Brand [...] inhalatio n 01/29 completed Medicati on ID: [id number] Du ration Value: 30 Reason: () Brand [...] by mouth 06/14 completed Medicati on ID: [id number] Br and Name: [place] S end Method: [...] ICD10 Code Diagnosis IMO Codes Diagnosis Note [id number] MARY ANN NAVARRO MD [facility] [address] [address] 06/14/2024 09:59:52 06/14/2024 12:24:48 Chronic sinusitis 90525665 J32.9 Allergic rhinitis 777253 04 J30.9 Moderate p ersistent asthma 746005720 J45.40 29299 ANASTASIIA DALE [place] [address] [place] [address] [place] [address] 09/08/2024 12:59:59 09/09/2024 07:25:11 Mixed conductive and sensorineural hearing loss of left ear 3268479289 9107 H90.A32 Sensorineu ral hearing loss in right ear 4782724559 9100 H90.A21 [id number] PAULA LEI MD [facility] [address] [address] 11/22/2024 08:34:03 11/22/2024 12:04:39 Adhesive middle ear disease 1557154 H74.13 Both ears continue to show stable retraction s without signs of acute or chronic inflammati on. Continue with observatio n. Postmastoi dectomy complication 15276832 H95.192 Left canal wall down mastoidect josseline cavity cleaned today. No signs of acute or chronic inflammati on. Recommend cleaning and follow-up in 1 year. Sensorineu ral hearing loss in right ear 5396773432 9100 H90.A21 Cerumen removed from the right [...] and sensorineural hearing loss of left ear 5936410384 9107 H90.A32 Impacted c erumen in right ear 2058478282 315469 H61.21 Health Concerns Section Related Observation LastModified by Organization Detai ls LastModified Time None Recorded Concern Status LastModified by Organization Details LastModified Time None Recorded Advance Directives Directive None Recorded Payers Insurance Date Sequence Insurance Name Policy Number Policy Becker Covered Member ID Becker Member ID Guarantor Name 06/14/2024 1 [facility] (PPO) Elena A Godbout [id number] Elena A Godbout 06/26/2025 1 [employer] - DIRECT CONNECTORCARE TYPE I (HMO) [id number] Elena A Godbout [id number] Elena A Godbout 11/22/2024 1 [employer] - [place] (HMO) [id number] Elena A Godbout [id number] Elena Rachel Godbout Notes Date Note Type [...] She has a sinus CT tomorrow at [facility]. She has a history of repaired cleft lip and palate and left canal wall down mastoidectomy. MARY ANN AGUDELO MD [address],[place] [address], [place], [address], [facility] 06/14/2024 16:15:35 09/08/2024 text/html Per pt request:Switched the right tube to a 0 from a 1. She preferred the Belong style medium open dome vs. the Thebes. Gave her a variety of other sized domes (Belong and Thebes as well).The tone hook on the left aid was loose so I replaced the tone hook as well as the tubing.She will call if she has any other issues. ANASTASIIA DALE [address] [facility],[address], [address], [facility] 09/08/2024 13:50:36 11/22/2024 text/html Patient with [...] this regard currently. PAULA LEI MD [address],[facility] [address], [place], [address], [facility] 11/22/2024 09:17:46 OBGyn Episode No OBEpisode recorded.
== END 2025-08-10 09:53 | disposition home or self-care (01) ==
LOC: HO.XRAY 09:52
PROVIDERS: PCP Internal Medicine; Visit Provider Internal Medicine
DX: R06.02 Shortness of breath (principal); R05.9 Cough, unspecified
CPT/HCPCS: 36415; 71046; 80048; 85027; 85379; 86140; 93005; 99212

== ENCOUNTER 2025-08-10 09:52 | Outpatient (AMB) | payer OTHER, SELFPAY ==
--- NOTE | 2025-08-10 10:05 | A.OFFPC_ITS ---
Vital Signs 08/10/25 10:08 Height 5 ft 2 in Weight 180 lb 2 oz BMI 32.9 BP 132/88 Blood Pressure Location Lt brachial Position Sitting Pulse 97 Pulse Source Pulse Oximeter Temp 96.9 F Temp Source Temporal Artery Scan Pulse Oximetry (%) 97 Oxygen Delivery Method Room Air Intake Visit Reasons: Follow up after covid Intake Note: Patient is here to follow up on Post covid. Health Navigator Required: No Dock Grader: Not Required per policy Accompanied by: Self / Same As Patient Allergies albuterol (ALBUTEROL) Allergy (Unknown, Verified 08/10/25 10:06) ANAPHYLAXIS azithromycin (AZITHROMYCIN) Allergy (Unknown, Verified 08/10/25 10:06) ANGIOEDEMA, tingling tongue/throat bee venom protein (honey bee) Allergy (Unknown, Verified 08/10/25 10:06) Anaphylaxis guaifenesin (GUAIFENESIN) Allergy (Unknown, Verified 08/10/25 10:06) ANAPHYLACTIC, anaphylaxis iodine (IODINE) Allergy (Unknown, Verified 08/10/25 10:06) ANAPHYLAXIS, Slight throat swelling levofloxacin (Levaquin) Allergy (Unknown, Verified 08/10/25 10:06) rash tingling peanut (PEANUT) Allergy (Unknown, Verified 08/10/25 10:06) HIVES shellfish derived Allergy (Unknown, Verified 08/10/25 10:06) slight throat swelling Sulfa (Sulfonamide Antibiotics) (SULFA (SULFONAMIDE ANTIBIOTICS)) Allergy (Unknown, Verified 08/10/25 10:06) RASH atorvastatin Adverse Reaction (Intermediate, Verified 08/10/25 10:06) Sneezing Monistat Cream Allergy (Unknown, Uncoded 08/10/25 10:06) Rash Medication List - Last Reconciled 08/12/25 by Troy Carr MD cholecalciferol (vitamin D3) 25 mcg PO DAILY 3 months dupilumab (Dupixent) mg subcut esomeprazole magnesium 20 mg PO DAILY estradiol 1 mg PO DAILY fluticasone furoate-vilanterol 100-25 mcg/dose (Breo Ellipta) 1 ea inhalation DAILY ipratropium bromide 17 mcg/actuation (Atrovent HFA) 0 mcg inhalation medroxyprogesterone 2.5 mg PO DAILY multivitamin 1 tab PO DAILY dhart-3-wtd-epa-fish oil-coQ10 131-11-693-250 mg (CoQmax [place]) 1 cap PO DAILY prednisone 60 mg (3 x 20 mg) PO DAILY zolpidem 5 mg PO BEDTIME PRN Tobacco use date assessed: 08/10/25 Fall risk assessment: No Falls in past year Last assessed Fall Risk: 08/10/25 Dental Screening Dental Screen Date: 09/24/24 HPI HPI Comments History of Present Illness Details History of Present Illness - The patient is a 65 year old female pr esenting with shortness of breath. - She reports having COVID-19 during the first week of July, for which she completed a full course of Paxlovid. - About a week and a half later, she dev eloped a sinus infection and completed a 10-day course of doxycycline, finishing on the Friday prior to this visit. - Since then, she has experienced increa sing shortness of breath, feeling overheated, and chest tightness. - She notes that her home pulse oximetry readings seem to be steady. - She has also had shortness of breath a t night. - She denies any fever, chills, or wheez ing. - The patient also reports having acid r eflux, which has been managed with omeprazole. - She mentions her heart is racing. Social History - Appetite: The patient's appetite is go od. - Functional Status: The patient is not homebound. Results - The patient reports her home pulse oxi metry has been steady. [facility], [facility] Medical History Elevated parathyroid hormone History of mammogram (~2023) Allergies Hx of thyroid nodule History of recent fall Annual physical exam Right hip pain Multinodular thyroid Asthma Surgical History History of surgery on right wrist History of ankle surgery History of ear surgery Family History Father Myocardial infarction Diabetes Mother High cholesterol Diabetes Hypertension Breast cancer DDD (degenerative disc disease) Maternal Grandfather Mary's disease Thyroid disease Sister Overactive thyroid gland Maternal Aunt Thyroid disease Social History Housing: House Alcohol intake: current Alcohol intake frequency: holidays/special occasions only Patient Tobacco Use Status: Never used Tobacco Tobacco use type: Cigarette e-Cigarette/Vaping Use: Never Used Second Hand Smoke Exposure: No service: No Current occupational status: unemployed Cognitive needs: No Hearing needs: No Vision needs: No Questionnaire Thrive Questionnaire Date Thrive assessed: 09/24/24 I am a: Patient What is your living situation today?: I choose not to answer this question Within the past 12 months, did the food you bought not last and you didn't have the money to get more?: I choose not to answer this question Within the past 12 months, did you worry whether your food would run out before you got money to buy more?: I choose not to answer this question Do you have trouble paying for medicines?: I choose not to answer this question Do you have trouble getting transportation to medical appointments?: I choose not to answer this question Do you have trouble paying your heating and electricity bill?: I choose not to answer this question Do you have trouble taking care of your child, family member or friend?: I choose not to answer this question Do you have trouble with day-to-day activities such as bathing, preparing meals, shopping, managing finances, etc.?: I choose not to answer this question Are you currently unemployed and looking for a job?: I choose not to answer this question Are you interested in more education?: I choose not to answer this question Currently or been in a relationship where the following occur: I choose not to answer THRIVE Score: 0 CLARISSA-7 AMB Questionnaire CLARISSA-7 Date CLARISSA - 7 assessed: 09/24/24 Source: Developed by Drs. Diego Brown, Shaniqua Leonard, Alfonso Downey and colleagues, with an educational dagmar from [employer]. Review of Systems Narrative Review of Systems - General/Constitutional: Reports feeling overheated. - Denies fever or chills. - Respiratory: Reports dyspnea, which is increasing and occurs at night. - Reports a feeling of tightness in the chest. - Reports a history of a runny nose associated with a recent cold. - Denies wheezing. - Cardiovascular: Reports a racing heart. - Denies pedal edema. - Gastrointestinal: Reports acid reflux. - Reports her appetite is good. - Musculoskeletal: Reports a day of achiness with her initial illness after COVID. Physical exam (Primary Care) Vital Signs: Last Vital Signs Temp 96.9 F 08/10/25 10:08 Pulse 97 08/10/25 10:08 BP 132/88 08/10/25 10:08 Pulse Ox 97 08/10/25 10:08 Oxygen Delivery Method Room Air 08/10/25 10:08 BMI result Body Mass Index 32.9 Tobacco/Smoking Status: Tobacco use Status Tobacco use date assessed 08/10/25 08/10/25 10:07 Patient Tobacco Use Status Never used Tobacco 08/10/25 10:07 Tobacco use type Cigarette 08/10/25 10:07 e-Cigarette/Vaping Use Never Used 08/10/25 10:07 Thrive Assessment: Date of Thrive Assessment Date Thrive assessed 09/24/24 08/10/25 10:07 Currently or been in a relationship where the following occur: I choose not to answer Narrative Physical Exam General: Appearance normal, both eyes and all related structures Nutritional Appearance: Well nourished Orientation/consciousness: Patient oriented x3 Limitations: No limitations Head: Normal to inspection Neck: Normal visual inspection Chest: Normal palpation of entire chest wall Respiratory: Short of breath, no wheezing Neurology: Patient oriented x3 Office Procedures EKG Details: RBBB 01448-[id number], Complete Coding Level of Care Code Est Pt Level 4 (76121) Add On Problem Visit Only Diagnoses Shortness of Breath R06.02 CPT Codes EKG - CPT: 29475-Phyhqaapqwrghcsky, Complete ([id number]) Assessment & Plan Assessment & Plan (1) Shortness of Breath: Code(s): R06.02 - Shortness of breath Plan Plan - An EKG will be performed to evaluate her palpitations. - A chest X-ray will be obtained to assess for the cause of her shortness of breath. - Follow-up will occur after the diagnostic tests are completed and reviewed. Discussion Notes I discussed with the patient her symptoms of shortness of breath and racing heart. To further evaluate these complaints, I have ordered an EKG and a chest X-ray. I informed the patient that I will return to discuss the results of these tests with her once they are completed. Patient Instructions - We will perform an EKG today to check your heart. - We will also get a chest X-ray. - Please wait for me to come back and discuss the results with you after the tests are done. Orders: Orders Basic Metabolic Panel 08/10/25 R06.02 - Shortness of breath D Dimer High Sensitivity 08/10/25 R06.02 - Shortness of breath XR chest 2V 08/10/25 R05.9 - Cough, unspecified AMB EKG-In Office 08/10/25 R06.02 - Shortness of breath Complete Blood Count no Diff 08/10/25 R06.02 - Shortness of breath C Reactive Protein 08/10/25 R06.02 - Shortness of breath
[2025-08-10 10:08] VITALS: BP 132/88; PULSE 97; TEMP 36.1; O2SAT 97; BMI 32.9
--- OUTSIDE RECORDS SUMMARY | 2025-08-10 10:37 | XMS_ITS | Clinical Summary ---
Author Organization [facility] Address [address] [place] [address] Phone Care Team Providers Care Speed Winder Name Role Phone Lion Teran MD Primary Care Provider [phone] Allergies Active Allergy Reactions Criticality Noted Date [...] COVID-19 (Pre-06/02) Moderna Vaccine, mRNA, PF 10/06/2020 INFLUENZA, SPLIT VIRUS, TRIV ALENT W/ PRESERVATIVE IM 07/17/2015 Influenza Quadrivalent MDCK Preservative Free IM 05/23/2023,06/03/2022 Influenza Quadrivalent Preservative Free IM 12/2020,05/29/2018 Influenza Quadrivalent w/ Preservative IM 2018,06/19/2017,07/19/2016 Pneumococcal conjugate PCV20 01/25/2023 Pneumococcal polysaccharide PPSV23 [...] FOBT 2006 SIGMOIDOSCOPY 2006 VIRTUAL COLONOSCOPY 2006 INFLUENZA VACCINE (#1) 2025 , 05/23/2023, 06/03/2022, Additional history exists COVID-19 VACCINE (2024- season) 2025 04/28/2023, 05/13/2022, 11/22/2021, Additional history exists Adult [...] topic Medical Devices Not on file Insurance [employer] DIRECT [employer] [address] [place] [address] [place] [address] [place] [address] [place] [address] [place] [address] Care Teams Speed Winder Relationship Specialty Start Date End Date Lion Teran MD [address] [place] [address] [place] [address] PCP - General Internal Medicine 03/15/20 Additional Source Comments The information contained in this document represents components of the legal health record. It is not the complete legal health record.[facility]
--- OUTSIDE RECORDS SUMMARY | 2025-08-10 10:37 | XMS_ITS | Data Portability ---
Author Organization [facility], [facility] Address [address] [address] Care Team Providers Care Finisher Brush Name Role Phone SERGO MAR Primary Care [...] is scheduled for sinus CT tomorrow at [facility] and was instructed to bring physical disc of images to our office for review. 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 Recommend continuing Breo, Spirivia, Dupixent, Zyrtec, Flonase, and nasal saline spray. She will be seeing her fashion artist later this week. Suggest considering ANCA and [...] : 01/25/2015 4:01 PM (389.21) Not Available [facility] 4 02:36:37 Sensorine ural hearing loss 21623792 Active 2015 Sensorine ural hearing loss, unilatera l, right ear, with unrestric mario hearing on the contralat eral side; Note: Date Diagnosed : 01/30/2016 3:54 PM (H90.41) Not Available [facility] 4 02:36:41 Benign paroxysma l positiona l vertigo 970548866 Active 2015 Benign paroxysma l vertigo, left ear; Note: Changed from H81.10 to H81.12 (11/13/2023 10:35 AM) , Date Diagnosed : 01/30/2016 3:53 PM (H81.10) Not Available [facility] 4 02:36:31 Postmasto idectomy complicat ion 05706385 Active 2015 Other disorders following mastoidec wang, left ear; Note: Date Diagnosed : 01/30/2016 3:42 PM (H95.192) Not Available [facility] 4 02:36:31 Deviated nasal septum 167745576 Active 2016 Deviated nasal septum; Note: Date Diagnosed : 7 3:22 PM (J34.2) Not Available [facility] 4 02:36:35 Nasal congestio n 06751893 Active 2016 Nasal congestio n; Note: Date Diagnosed : 7 3:22 PM (R09.81) Not Available [facility] 4 02:36:34 History of repair of cleft lip 399014575 Active 2016 Personal history of (correcte d) cleft lip and palate; Note: Date Diagnosed : 7 4:32 PM (Z87.730) Not Available [facility] 4 02:36:42 History of repair of congenita l cleft palate 04503416009 9107 Active 2016 Personal history of (correcte d) cleft lip and palate; Note: Date Diagnosed : 7 4:32 PM (Z87.730) Not Available [facility] 4 02:36:42 Acute upper respirato ry infection 18151066 Active 2017 Acute upper respirato ry infection , unspecifi ed; Note: Date Diagnosed : 05/12/2018 5:05 PM (J06.9) Not Available [facility] 4 02:36:33 Granulati ons of postmasto idectomy cavity Active 2018 Granulati ons of postmasto idectomy cavity; Note: Date Diagnosed : 04/30/2019 1:19 PM (383.33) Recurre nt debris collectio n within post mastoidec wang cavity; Note: Date Diagnosed : 01/25/2015 4:49 PM (383.33) ; Start Date : 5 Not Available [facility] 4 02:36:33 Conductiv e hearing loss of right ear 1338571855 Active 2018 Conductiv e hearing loss, unilatera l, right ear with restricte d hearing on the contralat eral side; Note: Date Diagnosed : 9 4:35 PM (H90.A11) Not Available [facility] 4 02:36:33 Mixed conductiv e and sensorine ural hearing loss of left ear 71445168080 107 Active 2018 Mixed conductiv e and [...] : 9 4:35 PM (H90.A32) Not Available [facility] 4 02:36:34 Allergic rhinitis 12157859 Active 2018 Other allergic rhinitis; Note: Date Diagnosed : 9 3:34 PM (J30.89) Not Available [facility] 4 02:36:31 Disorder of right Eustachia n tube 71768483746 65339 Active 2018 Other specified disorders of Eustachia n tube, right ear; Note: Date Diagnosed : 9 3:34 PM (H69.81) Not Available [facility] 4 02:36:32 Impacted cerumen in right ear 81260817392 51780 Active 2019 Impacted cerumen, right ear; Note: Date Diagnosed : 10/19/2019 4:49 PM (H61.21) Not Available [facility] 4 02:36:33 Bilateral disorder of Eustachia n tubes 33543654613 56351 Active 2021 Other specified disorders of Eustachia n tube, bilateral ; Note: Date Diagnosed : 01/24/2022 11:09 AM (H69.83) Not Available [facility] 4 02:36:37 Adhesive middle ear disease 7567372 Active 2022 Adhesive middle ear disease, unspecifi ed as to involveme nt; Note: Date Diagnosed : 01/25/2015 4:49 PM (385.10) ; Start Date : 5 Adhesiv e middle ear disease, bilateral ; Note: Date Diagnosed : 01/27/2023 9:29 AM (H74.13) Not Available [facility] 4 02:36:33 Mixed conductiv e and sensorine ural hearing loss, bilateral 009020417 Active 2023 Mixed conductiv e and sensorine ural hearing loss, bilateral ; Note: Date Diagnosed : 11/13/2023 10:35 AM (H90.6) Not Available [facility] 4 02:36:38 Chronic sinusitis 38581457 Active 2023 KYARA YANEZ PA-C [address] [facility],[place] [address], [facility] [place], [address] , [facility] 4 10:44:16 Moderate persisten t asthma 540628309 Active 2023 MARY ANN NAVARRO MD [address] [facility],[place] [address], [facility] [place], [address] , [facility] 4 16:13:24 Sensorine ural hearing loss in right ear 06254240717 100 Active 2024 ANASTASIIA DALE [address] [place] [address],[place] [address], [facility] [place], [address] , [facility] 5 12:51:56 Problem Notes None recorded. Procedures Surgical History Date Name Laterality Status Provider Name and Address Organization Details Recorded Time 5 Debridement of Mastoid Cavity left completed PAULA LEI MD [address] [facility],[place] [address], [place], [address], [facility] 11/21/2024 19:40:02 5 Cerumen removal with microscope right completed PAULA LEI MD [address] [facility],[address], [address], [facility] 11/22/2024 09:16:58 4 Nasal Endoscopy completed KYARA YANEZ PA-C [address] [place] [address],[address], [address], [facility] 06/14/2024 10:43:14 Imaging Results None recorded. Procedure Notes None recorded. Medical Equipment None Reported. Allergies Allergen ID Allergen Name Allergen Category Reaction Reaction Severity Criticality Documentation Date Start Date Code Code System Note Provider Name and Address Organization Details Recorded Time 78783 azithromy martha medicatio n other Not available Not available 12/23/2023 26507 RxNorm React ion: unkno wn, unspe cifie d;; Not Available [facility] 4 01:01:02 69349 levofloxa martha medicatio n other Not available Not available 12/23/2023 82526 RxNorm React ion: dereko wn, unspe cifie d;; Not Available [facility] 4 01:01:03 20570 Substance with sulfonami de structure and antibacte rial mechanism of action (substanc e) medicatio n other Not available Not available 12/23/2023 17067 8003 SNOMED React ion: unkno wn, unspe cifie d;; Not Available [facility] 4 01:01:06 33658 Iodine and/or iodine compound (substanc e) Not available other Not available Not available 12/23/2023 01917 6004 SNOMED React ion: aimee burns, unspe cifie d;; Not Available [facility] 4 01:01:08 Medications Name Sig Start Date Stop Date Status Note LastModified by Organization Details LastModified Time cyclobenz aprine 10 mg tablet 06/25 completed Medicati on ID: [id number] D uration Value: 30 Reason: () Brand Name: cycloben zaprine Send Method: E-Prescr ibed Sub s Allowed: subs OK Speci al Instruct ion: TAKE 1 TABLET BY MOUTH 3 TIMES A DAY Medi cationGe nericNam e: cycloben zaprine Not Available Not Available Not Available amoxicill in 500 mg capsule 04/30 completed Medicati on ID: [id number] D uration Value: 10 Reason: () Brand [...] inhalatio n 01/29 completed Medicati on ID: 00501 Du ration Value: 30 Reason: () Brand [...] by mouth 06/14 completed Medicati on ID: [id number] Br and Name: [place] S end Method: [...] ICD10 Code Diagnosis IMO Codes Diagnosis Note 12124 MARY ANN NAVARRO MD [facility] [address] [address] 06/14/2024 09:59:52 06/14/2024 12:24:48 Chronic sinusitis 41018644 J32.9 Allergic rhinitis 532263 04 J30.9 Moderate p ersistent asthma 398559953 J45.40 66651 ANASTASIIA DALE [facility] [place] [address] [place] [address] [place] [address] 09/08/2024 12:59:59 09/09/2024 07:25:11 Mixed conductive and sensorineural hearing loss of left ear 6980590728 9107 H90.A32 Sensorineu ral hearing loss in right ear 7294567505 9100 H90.A21 75129 PAULA LEI MD [facility] [address] [address] 11/22/2024 08:34:03 11/22/2024 12:04:39 Adhesive middle ear disease 2173410 H74.13 Both ears continue to show stable retraction s without signs of acute or chronic inflammati on. Continue with observatio n. Postmastoi dectomy complication 97564420 H95.192 Left canal wall down mastoidect josseline cavity cleaned today. No signs of acute or chronic inflammati on. Recommend cleaning and follow-up in 1 year. Sensorineu ral hearing loss in right ear 5629044871 9100 H90.A21 Cerumen removed from the right [...] and sensorineural hearing loss of left ear 2409235465 9107 H90.A32 Impacted c erumen in right ear 9928756223 594707 H61.21 Health Concerns Section Related Observation LastModified by Organization Detai ls LastModified Time None Recorded Concern Status LastModified by Organization Details LastModified Time None Recorded Advance Directives Directive None Recorded Payers Insurance Date Sequence Insurance Name Policy Number Policy Becker Covered Member ID Becker Member ID Guarantor Name 06/14/2024 1 [facility] PLAN (PPO) Elena A Godbout [id number] Elena A Godbout 06/26/2025 1 [facility] - DIRECT CONNECTORCARE TYPE I (HMO) [id number] Elena A Godbout [id number] Elena A Godbout 11/22/2024 1 [facility] - DIRECT - [place] RESERVATION ZERO (HMO) [id number] Elena A Godbout [id number] Elena Rachel Godbout Notes Date Note Type [...] She has a sinus CT tomorrow at [facility]. She has a history of repaired cleft lip and palate and left canal wall down mastoidectomy. MARY ANN AGUDELO MD [address],[place] [address], [place], [address], [facility] 06/14/2024 16:15:35 09/08/2024 text/html Per pt request:Switched the right tube to a 0 from a 1. She preferred the Belong style medium open dome vs. the Barnwell. Gave her a variety of other sized domes (Belong and Barnwell as well).The tone hook on the left aid was loose so I replaced the tone hook as well as the tubing.She will call if she has any other issues. ANASTASIIA DALE [address] [facility],[address], [address], [facility] 09/08/2024 13:50:36 11/22/2024 text/html Patient with [...] this regard currently. PAULA LEI MD [address],[facility], [place], [address], [facility] 11/22/2024 09:17:46 OBGyn Episode No OBEpisode recorded.
--- OUTSIDE RECORDS SUMMARY | 2025-08-10 10:37 | XMS_ITS | Patient Health Record ---
Author Organization [facility] Address [address] [place] [address] Care Team Providers Care Rigger Apprentice Name Role Phone TERESA SANDOVAL Primary Care Provider Diego Paredes Unavailable [phone] Allergies Allergen (clinical drug ingredient) Drug/Non Drug Allergy documented on EMR Reaction Allergy Type Onset Date Status azithromycin Z-pack (uncoded) Unknown Allergy Active albuterol Albuterol Unknown Drug Allergy Active Guaifenesin Unknown Drug Allergy Activ e Iodine Unknown Drug Allergy Active Levaquin Unknown Drug Allergy Active Sulfa Unknown Drug Allergy Active Reason For Referral No Information Medications Medication SIG (Take, Route, Frequency, Duration) Notes Start Date End Date Status Motrin IB 200 MG Tablet 1 tablet as needed Orally every 6 hrs Active MoviPrep 100 GM Solution as directed Orally as directed; Duration: 1 dose 05/17/2014 Active Atrovent HFA 17 MCG/ACT Aerosol Solution 2 puffs Inhalation Four times a day Active Advair Diskus 250-50 MCG/DOSE Aerosol Powder Breath Activated 1 puff Inhalation Twice a day Active Vicodin 5-300 MG Tablet 1 tablet as needed Orally every 6 hrs For back pain--uses rarely Active ZyrTEC Allergy 10 MG Tablet 1 tablet Orally Once a day Active Social History Social History Additional Details Category Social Info Options Details Miscellaneous: Marital status: 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 alcohol Problems Problem Type SNOMED Code ICD Code Onset Dates Problem Status W/U Status Risk Notes Problem Pre-surgery evaluation (068092679) Other specified pre-operative examination (V72.83) Active confirmed Problem Colon cancer screening (378850461) Colon cancer screening (V76.51) Active confirmed Problem NSAID long-term use (V58.64) Active confirmed Plan Of Treatment Future Test Test Name Order Date COLONOSCOPY 05/17/2014 Next Appt Details Provider Name:Diego Mills , 09/21/2025 02:40:00 PM, [address] [facility], [address], [place], [address], Insurance Providers Payer Name Payer Address Payer Phone Subscriber Number Group Number Insured Name Patient Relationship to Insured Coverage Start Date Coverage End Date [facility] [address] [place] [address] [id number] AN ODOM Self - patient is the insured Medical (General) History Medical History History ICD Code Asthma Denies LA,DM,CVA,renal disease Thyroid nodules/goiter Surgical History Surgery Date(Month/Year) cleft lip repair 2983-2408 cleft palate repair 5485-4479 left ear surgery X 4 mastoidectomy 1992 foraminotomy-disc surgery C-5-Dr. Olivier 01/2014 ankle surgery-left 11/2009
--- OUTSIDE RECORDS SUMMARY | 2025-08-10 10:37 | XMS_ITS | Patient Health Record ---
Author [facility] Address [address] [place] [address] Care Team Providers Care Cooker Tender Name Role Phone Lion Teran MD Primary Care Provider Unavaila kristofer Khloe Adler Unavailable [phone] Allergies Allergen (clinical drug ingredient) Drug/Non Drug [...] Status Risk Notes Problem Acquired hallux valgus (29320318) Hallux valgus (acquired), left foot (M20.12) Active confirmed Problem Localized, primary osteoarthritis of the ankle and/or foot (810186500) Primary osteoarthrit is, left ankle 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) Active confirmed Problem Acquired hallux valgus (73102170) Hallux valgus (acquired), right foot (M20.11) Active confirmed Problem Acquired hammer toe of right foot (5535589104516971) Other hammer toe(s) (acquired), right foot (M20.41) Active confirmed Problem Acquired hammer toe of left foot (7329817291018959) Other hammer toe(s) (acquired), left foot (M20.42) Active confirmed Plan Of Treatment Pending Test Test Name Order Date *Liver Function Test (LFT) 09/07/2014 X ray : Foot, right 3V 02/27/2018 [id number] NAIL, 6 OR MORE 11/01/2013 57855-[id number] NAIL, 6 OR MORE 03/03/2014 [id number] NAIL, 6 OR MORE 06/01/2014 [id number] NAIL, 6 OR MORE 09/07/2014 [id number] NAIL, 6 OR MORE 11/14/2014 [id number] TENDON SHEATH/LIGAMENT 1 08/12/2021 79008,[id number] TENDON SHEATH/LIGAMENT 0 10/17/2022 60251,[id number] TENDON SHEATH/LIGAMENT 0 11/25/2022 Insurance Providers Payer Name Payer Address Payer Phone Subscriber Number Group Number Insured Name Patient Relationship to Insured Coverage Start Date Coverage End Date [facility] [address] [place] [phone] [id number] Andrew Vitale Spouse - patient is the [...]
--- OUTSIDE RECORDS SUMMARY | 2025-08-10 10:38 | XMS_ITS | Encounter Summary ---
Author Organization [facility] Address [address] [place] [address] Care Team Providers Care Lead Embedded Software Engineer Name Role Phone Troy Carr MD Primary Care Provider [phone]- [phone] Encounter Details Date Type Department Care Team (Latest Contact Info) Description 07/12/2025 Lab Requisition [facility] - Main Lab [address] [place] [address] Jerel Gomez MD [address] [address] Encounter for gynecological examination (general) [...] lesion or malignancy 07/14/2025 11:24 AM EST [facility] at 1124 EST General Categorization Negative 07/14/2025 11:24 AM EST [facility] Specimen Adequacy Satisfactory for evaluation, endocervical/coles sformation zone component absent 07/14/2025 11:24 AM EST [facility] Pap Methodology Liquid Based Pap Test 07/14/2025 11:24 AM EST [facility] Disclaimer The Pap test is a screening test which carries an inherent false negative rate. These test results should be correlated with the patient's clinical findings and history. This Pap test was processed using an automated screening system. Technical cytopathology services provided by [facility], at [address] [place] [address] (CLIA # [id number]/Moraima Mcnair MD, Buzzsaw Operator Helper.) 07/14/2025 11:24 AM EST [facility] Console Pap Interpretation Reported 07/14/2025 11:24 AM [facility] Brushing/Spatula Cervix uteri structure / Unknown 07/11/2025 07/12/2025 8:26 AM EST us Jerel Gomez MD LAB CYTOLOGY ORDERABLES Final Result [facility] [address] [place] [address], documented in this encounter Visit Diagnoses Diagnosis Encounter for gynecological examination (general) (routine) without abnormal findings documented in this encounter Care Teams Lead Embedded Software Engineer Relationship Specialty Start Date End Date Troy Carr MD [facility] [address] [place] [address] PCP - General Internal Medicine 07/12/25 documented as of this encounter
--- OUTSIDE RECORDS SUMMARY | 2025-08-10 10:38 | XMS_ITS | Clinical Summary ---
Author Organization [address] [facility] Address [address] [place] [address] Phone Care Team Providers Care Bumper And Painter Name Role Phone Troy Carr MD Primary Care Provider [phone]- [phone] Encounters Date Type Department Care Team Description 07/12/2025 Lab Requisition [facility] - Main Lab [address] [facility] [place] [address] Jerel Gomez MD Encounter for [...] DTaP,Tdap,and Td Vaccines (1 - Tdap) 02/14/1980 Pneumococcal Vaccine: 50+ Ye ars (1 of 1 - PCV) 2011 Zoster Vaccines (1 of 2) 2011 Depression Screening 08/11/2024 COVID-19 Vaccine (1 - 2024-2 6 season) 2025 Influenza Vaccine (#1) 2025 HIV Screening 07/12/2025 Hepatitis C Screening 07/12/2025 Social Influencers of Health Screening 07/12/2025 Cervical Cancer Screening: P ap Smear 07/11/2028 07/11/2025 RSV Immunization Adult Patie nts (1 - [...] intraepithelial lesion or malignancy 07/14/2025 11:24 AM [facility] at 1124 EST General Categorization Negative 07/14/2025 11:24 AM [facility] Specimen Adequacy Satisfactory for evaluation, endocervical/coles sformation zone component absent 07/14/2025 11:24 AM [facility] Pap Methodology Liquid Based Pap Test 07/14/2025 11:24 AM [facility] Disclaimer The Pap test is a screening test which carries an inherent false negative rate. These test results should be correlated with the patient's clinical findings and history. This Pap test was processed using an automated screening system. Technical cytopathology services provided by [facility], at [address] [place] [address], [place] [address] (CLIA # [id number]/Moraima Mcnair MD, Director Drug Safety.) 07/14/2025 11:24 AM [facility] Console Pap Interpretation Reported 07/14/2025 11:24 AM EST KIM SAENZ [place] ([facility]) [facility] Brushing/Spatula Cervix uteri structure / Unknown 07/11/2025 07/12/2025 8:26 AM EST us Jerel Gomez MD LAB CYTOLOGY ORDERABLES Final Result [facility] [place] ([facility]) [facility] [address] [place] [address], from Last 3 Months Insurance [place] [id number] [facility] Care Teams Bumper And Painter Relationship Specialty Start Date End Date Troy Carr MD [facility] [address] [place] [address] [address] [place] [address] PCP - General Internal Medicine 07/12/25
== END 2025-08-10 10:58 | disposition home or self-care (01) ==
LOC: HO.HMCH 09:53
PROVIDERS: PCP Internal Medicine; Visit Provider Internal Medicine
DX: R06.02 Shortness of breath (principal)

== ENCOUNTER → 2025-08-10 11:24 | Outpatient (BNV) | payer OTHER, SELFPAY | PROVIDERS: PCP Internal Medicine; Visit Provider Radiology Diagnostic Radiology | DX: R05.9 Cough, unspecified (principal) | CPT/HCPCS: 71046 ==